=== PATIENT | male | born 1960 | race African-American/Black ===

== ENCOUNTER 2023-07-20 15:24 | Outpatient (AMB) | payer BC, SELFPAY ==
--- NOTE | 2023-07-20 16:04 | HO.NEPHOV ---
HPI HPI Comments History of Present Illness Details I had the pleasure of seeing Florian in follow-up of his chronic kidney disease, hypertension on a backdrop of microscopic hematuria and proteinuria. He has gained some weight. His blood sugar is better. His blood pressure has been at goal. He does not take any nonsteroidal anti-inflammatories. He denies nausea, vomiting, diarrhea, chest pain, shortness of breath, paroxysmal nocturnal dyspnea, orthopnea or pedal edema. He does not have any orthostatic symptoms. He claims to be compliant with his medications. All other systems have been reviewed and were negative. [facility] Medical History (Updated 08/07/23 @ 20:23 by John Loredo MD) Hypertension Chronic kidney disease, stage 3a Proteinuria Hematuria Family History (Updated 07/20/23 @ 16:11 by Kassandra Stewart MA) Sister Hypertension Social History (Updated 07/20/23 @ 16:10 by Kassandra Stewart MA) Alcohol intake: current Patient Tobacco Use Status: Former Tobacco user Vital Signs 07/20/23 16:06 Height 5 ft 7 in Weight 222 lb BMI 34.8 BP 118/60 Blood Pressure Location Lt brachial Position Sitting Pulse 87 Pulse Source Pulse Oximeter Pulse Oximetry (%) 97 Oxygen Delivery Method Room Air Physical Exam Vital Signs: Last Vital Signs Pulse 87 07/20/23 16:06 BP 118/60 07/20/23 16:06 Pulse Ox 97 07/20/23 16:06 Oxygen Delivery Method Room Air 07/20/23 16:06 BMI result Body Mass Index 34.8 Const General: comfortable and no acute distress Orientation/consciousness: patient oriented x3 HEENT Head: Yes normocephalic Mouth: Normal oral and palatal mucosa present Eyes EOM: EOMs intact bilaterally Neck Neck: Yes supple Resp Auscultation: clear to auscultation bilaterally Cardio Jugular venous distension: no JVD Rate: regular rate GI Palpation (GI): Soft to palpation Auscultation: normal bowel sounds General: Yes no CVA tenderness Back/Spine/Pelvis Back: no CVA tenderness Skin General skin exam: no rashes or lesions noted Neuro General: patient oriented x3 and moves all extremities Extrem General: Yes no pedal edema Assessment & Plan Assessment & Plan (1) Hypertension: Code(s): I10 - Essential (primary) hypertension Qualifiers: Hypertension type: primary hypertension Qualified Code(s): I10 - Essential (primary) hypertension (2) Chronic kidney disease, stage 3a: Code(s): N18.31 - Chronic kidney disease, stage 3a Home Du has CKD stage 3. He likely has IgA nephropathy. His serum creatinine in 2022 was 1.88 & is stable. He has history of microscopic hematuria. His proteinuria now is undetectable. His blood pressure has been at goal. He clearly needs to lose weight. I asked him to keep his blood sugar & blood pressure at goal. He is on MYLA inhibitor. He is already taking fish oil. He had imaging studies and cystoscopy by Urology. He avoids nonsteroidal anti-inflammatories and maintain good hydration. I did not make any medication changes today. He will be a candidate for [employer] or [employer] at the next office visit. I answered all his and his 's questions. Follow-up lab work ordered and follow-up appointment given Orders: Orders Electrolytes 07/27/23 I10 - Essential (primary) hypertension, N18.31 - Chronic kidney disease, stage 3a Calcium 07/27/23 I10 - Essential (primary) hypertension, N18.31 - Chronic kidney disease, stage 3a Creatinine 07/27/23 I10 - Essential (primary) hypertension, N18.31 - Chronic kidney disease, stage 3a Protein Creatinine Ratio, Ur 07/27/23 I10 - Essential (primary) hypertension, N18.31 - Chronic kidney disease, stage 3a Hemoglobin A1c 07/27/23 I10 - Essential (primary) hypertension, N18.31 - Chronic kidney disease, stage 3a Blood Urea Nitrogen 07/27/23 I10 - Essential (primary) hypertension, N18.31 - Chronic kidney disease, stage 3a Coding Level of Care Code Est Pt Level 4 (10966) Diagnoses Primary hypertension I10 Hypertension type: primary hypertension Chronic kidney disease, stage 3a N18.31 Results Reviewed Nephrology Results: Sodium 141 mmol/L (135-145) 07/27/23 Potassium 3.9 mmol/L (3.3-5.1) 07/27/23 Chloride 106 mmol/L (96-108) 07/27/23 Carbon Dioxide 26 mmol/L (22-29) 07/27/23 BUN 26 mg/dL (9-16) H 07/27/23 Creatinine 1.56 mg/dL (0.5-1.4) H 07/27/23 Calcium 9.6 mg/dL (8.4-10.2) 07/27/23 Urine Creatinine 168.63 mg/dL 07/27/23 Protein/Creatinin Ratio 0.10 (<0.2) 07/27/23
[2023-07-20 16:06] VITALS: BP 118/60; PULSE 87; O2SAT 97; BMI 34.8
== END 2023-07-20 16:46 | disposition home or self-care (01) ==
PROVIDERS: PCP Physician Assistant; Visit Provider Internal Medicine Nephrology
DX: I10 Essential (primary) hypertension (principal); N18.31 Chronic kidney disease, stage 3a
CPT/HCPCS: 99214

== ENCOUNTER → 2023-07-20 15:24 | Outpatient (BNVA) | payer BC, SELFPAY | PROVIDERS: PCP Physician Assistant; Visit Provider Internal Medicine Nephrology ==

== ENCOUNTER 2023-07-27 08:40 | Outpatient (REF) | payer BC, SELFPAY ==
[2023-07-27 13:01] LABS: Anion Gap 13 (12-20); Blood Urea Nitrogen 26 mg/dL (9-16); Calcium 9.6 mg/dL (8.4-10.2); Carbon Dioxide 26 mmol/L (22-29); Chloride 106 mmol/L (96-108); Estimated Glomerular Filt Rate 45; Potassium 3.9 mmol/L (3.3-5.1); Sodium 141 mmol/L (135-145)
[2023-07-27 13:03] LABS: Creatinine Urine 168.63 mg/dL; Total Protein Urine Random 17 mg/dL (<12)
[2023-07-27 13:04] LABS: Estimated Average Glucose 143 mg/dL; Hemoglobin A1c % 6.6 % (<6.0)
== END 2023-07-27 08:41 | disposition home or self-care (01) ==
LOC: HO.HKASLDS 08:40
PROVIDERS: Visit Provider Internal Medicine Nephrology
DX: I12.9 Hypertensive chronic kidney disease with stage 1 through stage 4 chronic kidney disease, or unspecified chronic kidney disease (principal); N18.31 Chronic kidney disease, stage 3a
CPT/HCPCS: 36415; 80051; 82310; 82565; 82570; 83036; 84156; 84520

== ENCOUNTER 2023-10-21 14:57 | Outpatient (AMB) | payer BC, SELFPAY ==
--- NOTE | 2023-10-21 15:03 | HO.NEPHOV_ITS ---
Vital Signs 10/21/23 15:05 Height 5 ft 7 in Weight 221 lb 6 oz BMI 34.7 BP 112/62 Blood Pressure Location Rt brachial Position Sitting Intake Visit Reasons: 3 mon follow up/ Conf Optical Effects Layout Person Required: No Accompanied by: Self / Same As Patient Allergies Peanut Butter Allergy (Verified 10/21/23 15:07) Unknown HPI Comments Details: I had the pleasure of seeing Florian in follow-up of his chronic kidney disease, hypertension on a backdrop of microscopic hematuria and proteinuria. He has gained some weight. His blood sugar is better. His blood pressure has been at goal. He does not take any nonsteroidal anti-inflammatories. He denies nausea, vomiting, diarrhea, chest pain, shortness of breath, paroxysmal nocturnal dyspnea, orthopnea or pedal edema. He does not have any orthostatic symptoms. He claims to be compliant with his medications. All other systems have been reviewed and were negative. [facility] Medical History (Updated 08/07/23 @ 20:23 by John Loredo MD) Hypertension Chronic kidney disease, stage 3a Proteinuria Hematuria Family History (Updated 07/20/23 @ 16:11 by Kassandra Stewart MA) Sister Hypertension Social History (Updated 07/20/23 @ 16:10 by Kassandra Stewart MA) Alcohol intake: current Patient Tobacco Use Status: Former Tobacco user Physical Exam Const General: comfortable and no acute distress Orientation/consciousness: patient oriented x3 HEENT Head: Yes normocephalic Mouth: Normal oral and palatal mucosa present Eyes EOM: EOMs intact bilaterally Neck Neck: Yes supple Resp Auscultation: clear to auscultation bilaterally Cardio Jugular venous distension: no JVD Rate: regular rate GI Palpation (GI): Soft to palpation Auscultation: normal bowel sounds General: Yes no CVA tenderness Back/Spine/Pelvis Back: no CVA tenderness Skin General skin exam: no rashes or lesions noted Neuro General: patient oriented x3 and moves all extremities Extrem General: Yes no pedal edema Results Reviewed Nephrology Results: Sodium 141 mmol/L (135-145) 07/27/23 Potassium 3.9 mmol/L (3.3-5.1) 07/27/23 Chloride 106 mmol/L (96-108) 07/27/23 Carbon Dioxide 26 mmol/L (22-29) 07/27/23 BUN 26 mg/dL (9-16) H 07/27/23 Creatinine 1.56 mg/dL (0.5-1.4) H 07/27/23 Calcium 9.6 mg/dL (8.4-10.2) 07/27/23 Urine Creatinine 168.63 mg/dL 07/27/23 Protein/Creatinin Ratio 0.10 (<0.2) 07/27/23 Assessment & Plan Assessment & Plan (1) Chronic kidney disease, stage 3a: Code(s): N18.31 - Chronic kidney disease, stage 3a Category: Medical (2) Hypertension: Code(s): I10 - Essential (primary) hypertension Category: Medical Qualifiers: Hypertension type: primary hypertension Qualified Code(s): I10 - Essential (primary) hypertension Plan Florian has CKD stage 3. He likely has IgA nephropathy. His serum creatinine is stable. He has history of microscopic hematuria. His proteinuria now is undetectable. His blood pressure has been at goal. He clearly needs to lose weight. I asked him to keep his blood sugar & blood pressure at goal. He is on MYLA inhibitor. He is already taking fish oil. He had imaging studies and cystoscopy by Urology. He avoids nonsteroidal anti-inflammatories and maintain good hydration. I wanted to discontinue his Pioglitazone and started him on Jardiance 10 mg saima but his insurance will not cover Jardiance/Farxiga. I ans wered all his questions. Follow-up lab work ordered and follow-up appointment given Orders: Orders Blood Urea Nitrogen Today I10 - Essential (primary) hypertension, N18.31 - Chronic kidney disease, stage 3a Creatinine Today I10 - Essential (primary) hypertension, N18.31 - Chronic kidney disease, stage 3a Electrolytes Today I10 - Essential (primary) hypertension, N18.31 - Chronic kidney disease, stage 3a Coding Level of Care Code Est Pt Level 4 (01820) Diagnoses Chronic kidney disease, stage 3a N18.31 Primary hypertension I10 Hypertension type: primary hypertension
[2023-10-21 15:05] VITALS: BP 112/62; BMI 34.7
== END 2023-10-21 15:22 | disposition home or self-care (01) ==
PROVIDERS: PCP Physician Assistant; Visit Provider Internal Medicine Nephrology
DX: N18.31 Chronic kidney disease, stage 3a (principal); I10 Essential (primary) hypertension
CPT/HCPCS: 99214

== ENCOUNTER → 2023-10-21 14:57 | Outpatient (BNVA) | payer BC, SELFPAY | PROVIDERS: PCP Physician Assistant; Visit Provider Internal Medicine Nephrology ==

== ENCOUNTER 2024-02-17 15:26 | Outpatient (AMB) | payer BC, SELFPAY ==
--- NOTE | 2024-02-17 15:30 | HO.NEPHOV_ITS ---
Vital Signs 02/17/24 15:31 Height 5 ft 7 in Weight 220 lb 8 oz BMI 34.5 BP 132/80 Blood Pressure Location Lt brachial Position Sitting Pulse 108 H Pulse Source Pulse Oximeter Pulse Oximetry (%) 96 Oxygen Delivery Method Room Air Intake Visit Reasons: 4 mon follow up/ Conf Campus Coordinator Required: No Accompanied by: Self / Same As Patient Allergies Peanut Butter Allergy (Verified 02/17/24 15:32) Unknown HPI Comments Details: I had the pleasure of seeing Florian in follow-up of his chronic kidney disease, hypertension on a backdrop of microscopic hematuria and proteinuria. His blood sugar is better. He has been started on Ozempic. His blood pressure has been at goal. He does not take any nonsteroidal anti-inflammatories. He denies nausea, vomiting, diarrhea, chest pain, shortness of breath, paroxysmal nocturnal dyspnea, orthopnea or pedal edema. He does not have any orthostatic symptoms. He claims to be compliant with his medications. All other systems have been reviewed and were negative. [facility] Medical History (Updated 08/07/23 @ 20:23 by John Loredo MD) Hypertension Chronic kidney disease, stage 3a Proteinuria Hematuria Family History Sister Hypertension Social History Alcohol intake: current Patient Tobacco Use Status: Former Tobacco user Review of Systems Const All systems reviewed & are unremarkable except as noted in HPI and below Physical Exam Vital Signs: Last Vital Signs Pulse 108 H 02/17/24 15:31 BP 132/80 02/17/24 15:31 Pulse Ox 96 02/17/24 15:31 Oxygen Delivery Method Room Air 02/17/24 15:31 BMI result Body Mass Index 34.5 Const General: comfortable and no acute distress Orientation/consciousness: patient oriented x3 HEENT Head: Yes normocephalic Mouth: Normal oral and palatal mucosa present Eyes EOM: EOMs intact bilaterally Neck Neck: Yes supple Resp Auscultation: clear to auscultation bilaterally Cardio Jugular venous distension: no JVD Rate: regular rate GI Palpation (GI): Soft to palpation Auscultation: normal bowel sounds General: Yes no CVA tenderness Back/Spine/Pelvis Back: no CVA tenderness Skin General skin exam: no rashes or lesions noted Neuro General: patient oriented x3 and moves all extremities Extrem General: Yes no pedal edema Results Reviewed Nephrology Results: Sodium 141 mmol/L (135-145) 07/27/23 Potassium 3.9 mmol/L (3.3-5.1) 07/27/23 Chloride 106 mmol/L (96-108) 07/27/23 Carbon Dioxide 26 mmol/L (22-29) 07/27/23 BUN 26 mg/dL (9-16) H 07/27/23 Creatinine 1.56 mg/dL (0.5-1.4) H 07/27/23 Calcium 9.6 mg/dL (8.4-10.2) 07/27/23 Urine Creatinine 168.63 mg/dL 07/27/23 Protein/Creatinin Ratio 0.10 (<0.2) 07/27/23 Assessment & Plan Assessment & Plan (1) Chronic kidney disease, stage 3a: Code(s): N18.31 - Chronic kidney disease, stage 3a Category: Medical (2) Hypertension: Code(s): I10 - Essential (primary) hypertension Category: Medical Qualifiers: Hypertension type: primary hypertension Qualified Code(s): I10 - Essential (primary) hypertension Plan Florian has CKD stage 3. He likely has IgA nephropathy. His serum creatinine had been stable. He has history of microscopic hematuria. His proteinuria now is undetectable. His blood pressure has been at goal. He clearly needs to lose weight. I asked him to keep his blood sugar & blood pressure at goal. He is on MYLA inhibitor. He is already taking fish oil. He had imaging studies and cystoscopy by Urology. He avoids nonsteroidal anti-inflammatories and maintain good hydration. I wanted to start him on Jardiance 10 mg saima but his insurance will not cover Jardiance/Farxiga. I answered all his questions. Follow-up lab work ordered and follow-up appointment given Orders: Orders Blood Urea Nitrogen 3 Months I10 - Essential (primary) hypertension, N18.31 - Chronic kidney disease, stage 3a Electrolytes 3 Months I10 - Essential (primary) hypertension, N18.31 - Chronic kidney disease, stage 3a Creatinine 3 Months I10 - Essential (primary) hypertension, N18.31 - Chronic kidney disease, stage 3a Coding Level of Care Code Est Pt Level 4 (15190) Diagnoses Chronic kidney disease, stage 3a N18.31 Primary hypertension I10 Hypertension type: primary hypertension
[2024-02-17 15:31] VITALS: BP 132/80; PULSE 108; O2SAT 96; BMI 34.5
== END 2024-02-17 15:45 | disposition home or self-care (01) ==
PROVIDERS: PCP Physician Assistant; Visit Provider Internal Medicine Nephrology
DX: N18.31 Chronic kidney disease, stage 3a (principal); I10 Essential (primary) hypertension
CPT/HCPCS: 99214

== ENCOUNTER → 2024-02-17 15:26 | Outpatient (BNVA) | payer BC, SELFPAY | PROVIDERS: PCP Physician Assistant; Visit Provider Internal Medicine Nephrology ==

== ENCOUNTER 2024-06-15 16:25 | Outpatient (REF) | payer BC, SELFPAY ==
[2024-06-15 18:38] LABS: Anion Gap 14 (12-20); Blood Urea Nitrogen 23 mg/dL (9-16); Carbon Dioxide 23 mmol/L (22-29); Chloride 106 mmol/L (96-108); Estimated Glomerular Filt Rate 43; Sodium 139 mmol/L (135-145)
== END 2024-06-15 16:26 | disposition home or self-care (01) ==
LOC: HO.HKASLDS 16:25
PROVIDERS: Visit Provider Internal Medicine Nephrology
DX: N18.31 Chronic kidney disease, stage 3a (principal); I10 Essential (primary) hypertension
CPT/HCPCS: 36415; 80051; 82565; 84520

== ENCOUNTER 2024-06-20 15:17 | Outpatient (AMB) | payer OTHER, SELFPAY ==
--- NOTE | 2024-06-20 15:18 | HO.NEPHOV_ITS ---
Vital Signs 06/20/24 15:25 Height 5 ft 7 in Weight 210 lb 2 oz BMI 32.9 BP 140/70 H Blood Pressure Location Lt brachial Position Sitting Pulse 73 Pulse Source Pulse Oximeter Pulse Oximetry (%) 99 Oxygen Delivery Method Room Air Intake Visit Reasons: 4 mon follow up-[facility] [place] Hearing Aid Technician Required: No Accompanied by: Self / Same As Patient Allergies Peanut Butter Allergy (Verified 06/20/24 15:25) Unknown HPI Comments Details: Florian was seen in follow-up of his chronic kidney disease, hypertension on a backdrop of microscopic hematuria and proteinuria. His blood sugar is better. He has been started on Ozempic. His blood pressure has been at goal. He does not take any nonsteroidal anti-inflammatories. He denies nausea, vomiting, diarrhea, chest pain, shortness of breath, paroxysmal nocturnal dyspnea, orthopnea or pedal edema. He does not have any orthostatic symptoms. He claims to be compliant with his medications. All other systems have been reviewed and were negative. [facility] Medical History (Updated 08/07/23 @ 20:23 by John Loredo MD) Hypertension Chronic kidney disease, stage 3a Proteinuria Hematuria Family History Sister Hypertension Social History Alcohol intake: current Patient Tobacco Use Status: Former Tobacco user Review of Systems Const All systems reviewed & are unremarkable except as noted in HPI and below Physical Exam Vital Signs: Last Vital Signs Pulse 73 06/20/24 15:25 BP 140/70 H 06/20/24 15:25 Pulse Ox 99 06/20/24 15:25 Oxygen Delivery Method Room Air 06/20/24 15:25 BMI result Body Mass Index 32.9 Const General: comfortable and no acute distress Orientation/consciousness: patient oriented x3 HEENT Head: Yes normocephalic Mouth: Normal oral and palatal mucosa present Eyes EOM: EOMs intact bilaterally Neck Neck: Yes supple Resp Auscultation: clear to auscultation bilaterally Cardio Jugular venous distension: no JVD Rate: regular rate GI Palpation (GI): Soft to palpation Auscultation: normal bowel sounds General: Yes no CVA tenderness Back/Spine/Pelvis Back: no CVA tenderness Skin General skin exam: no rashes or lesions noted Neuro General: patient oriented x3 and moves all extremities Extrem General: Yes no pedal edema Results Reviewed Nephrology Results: Sodium 139 mmol/L (135-145) 06/15/24 Potassium 4.0 mmol/L (3.3-5.1) 06/15/24 Chloride 106 mmol/L (96-108) 06/15/24 Carbon Dioxide 23 mmol/L (22-29) 06/15/24 BUN 23 mg/dL (9-16) H 06/15/24 Creatinine 1.61 mg/dL (0.5-1.4) H 06/15/24 Calcium 9.6 mg/dL (8.4-10.2) 07/27/23 Urine Creatinine 168.63 mg/dL 07/27/23 Protein/Creatinin Ratio 0.10 (<0.2) 07/27/23 Assessment & Plan Assessment & Plan (1) Chronic kidney disease, stage 3a: Code(s): N18.31 - Chronic kidney disease, stage 3a Category: Medical (2) Hypertension: Code(s): I10 - Essential (primary) hypertension Category: Medical Qualifiers: Hypertension type: primary hypertension Qualified Code(s): I10 - Essential (primary) hypertension Plan Florian has CKD stage 3. He likely has IgA nephropathy. His serum creatinine had been stable. He has history of microscopic hematuria. His proteinuria now is undetectable. His blood pressure has been at goal. He clearly needs to lose weight. I asked him to keep his blood sugar & blood pressure at goal. He is on MYLA inhibitor. He is already taking fish oil. He had imaging studies and cystoscopy by Urology. He avoids nonsteroidal anti-inflammatories and maintain good hydration. I wanted to start him on Jardiance 10 mg saima but his insurance will not cover Jardiance/Farxiga. I answered all his questions. Follow-up lab work ordered and follow-up appointment given Orders: Orders Creatinine 4 Months I10 - Essential (primary) hypertension, N18.31 - Chronic kidney disease, stage 3a Blood Urea Nitrogen 4 Months I10 - Essential (primary) hypertension, N18.31 - Chronic kidney disease, stage 3a Protein Creatinine Ratio, Ur 4 Months I10 - Essential (primary) hypertension, N18.31 - Chronic kidney disease, stage 3a UA and rflx microscopic 4 Months I10 - Essential (primary) hypertension, N18.31 - Chronic kidney disease, stage 3a Electrolytes 4 Months I10 - Essential (primary) hypertension, N18.31 - Chronic kidney disease, stage 3a Coding Level of Care Code Est Pt Level 4 (54801) Diagnoses Chronic kidney disease, stage 3a N18.31 Primary hypertension I10 Hypertension type: primary hypertension
--- OUTSIDE RECORDS SUMMARY | 2024-06-20 15:20 | XMS_ITS | Encounter Summary ---
Author Organization [facility] Address [address] [place] [address] Care Team Providers Care Sub Acute Care Nurse Name Role Phone Hanny Thompson PA-C Primary Care Provider + [phone] Reason for Referral * Podiatry (Routine) - Pending Review Specialty Diagnoses / Procedures Referred By Jelly stockton Referred To Contact Family Practice Diagnoses Type 2 diabetes mellitus with hyperglycemia, with long-term current use of insulin ([facility]) Aroldo Latham, SouravD [address] [place] [address] Phone: tel: fax: Ana Vegas RN [phone] [place] [address] Phone: tel: fax: Referral ID Status Reason Start Date Expiration Date Visits Requested Visits Authorized [id number] Pending Review Continuity of Care 06/15/2024 06/15/2025 1 1 Comments 63-year-old Iraqi-speaking insulin dependent DM2 patient without diabetic neuropathy, completed last diabetic foot exam 2 years ago, please evaluate, thank you! Reason for Visit * Reason Comments Diabetes Mellitus Encounter Details Date Type Department Care Team ([facility] st Contact Info) Description 06/13/2024 4:20 PM EST Office Visit [facility] [address] [place] [address] Aroldo Latham, PharmD [address] [place] [address] Type 2 diabetes mellitus with hyperglycemia, with long-term current use of insulin ([facility]) (Primary Dx); Essential hypertension; Class 1 obesity due to excess calories with serious comorbidity and body mass index (BMI) of 30.0 to 30.9 in adult; Hyperlipidemia LDL goal <70 Social History Tobacco Use Types Packs/Day Years Used Date Smoking Tobacco: Never Smokeless Tobacco: Never Tobacco Cessation:Counseling Given: Not Answered Alcohol Use Standard Drinks/Week Comments No 0 (1 standard drink = 0.6 oz pur e alcohol) sometimes Social Connections Answer Date Recorded Connectedness 0 07/02/2022 Financial Resource Strain Answer Date R ecorded Financial Resource Strain 1 2023 Stress Answer Date Recorded Stress 1 11/30/2023 Physical Activity Answer Date Recorded Physical Activity 0 01/07/2019 Food Insecurity Answer Date Recorded Food 1 11/30/2023 Transportation Needs Answer Date Record ed Transportation 1 11/30/2023 Housing Stability Answer Date Recorded Housing 1 11/30/2023 Safety and Environment Answer Date Armand rded Safety 0 07/02/2022 Utilities Answer Date Recorded Utilities 1 11/30/2023 Employment Answer Date Recorded Stress 0 07/02/2022 Sex and Gender Information Value Date Recorded Sex Assigned at Male 03/01/2017 1:07 PM PDT Legal Sex Male 11:36 AM PDT Gender Identity Male 03/01/2017 1:07 PM PDT Sexual Orientation Straight 03/01/2017 1: 07 PM PDT documented as of this encounter Last Filed Vital Signs Vital Sign Reading Time Taken Comments Blood Pressure 130/76 06/13/2024 4:40 PM EST Pulse 86 06/13/2024 4:29 PM EST Temperature - - Respiratory Rate 16 06/13/2024 4:29 PM EST Oxygen Saturation 97% 06/13/2024 4:29 PM EST Inhaled Oxygen Concentration - - Weight 95.3 kg (210 lb) 06/13/2024 4:29 PM EST Height 177 cm (5' 9.69 ) 06/13/2024 4:29 PM EST Body Mass Index 30.4 06/13/2024 4:29 PM EST documented in this encounter Progress Notes * Aroldo Latham, SouravD - 06/13/2024 4:37 PM EST Florian Graham is a 63 year old, Iraqi-speaking male who presents today for a follow-up visit in [facility] with Sourav GlasgowD. Referred by Hanny Thompson PA-C. No in flight refueling craftsman needed for today's visit as patient speaks Iraqi. Accompanied by: None Subjective: Patient reports: Continues to use [facility], denies experiencing any issues. Per glucometer review, BG has improved, although continues to be slightly uncontrolled. Discontinued Lantus Solostar on 06/03/24 due to restarting Trulicity 1.5 mg (pt thought he could notuse both simultaneously), see below. Restarted Trulicity 1.5 mg once weekly every Wednesday starting on 06/03/24 due to recently changing insurances and copay now $36 (instead of $150), denies experiencing any nausea, vomiting, abdominal pain, constipation or diarrhea. Denies experiencing bilateral peripheral extremity numbness or tingling. Polydipsia/polyphagia/polyuria? no Changes in diet: Reduced rice and bread intake to once weekly. Denies drinking soda. Previously seen by [facility] channel account manager, denies interest in follow-up Changes in physical activity: currently using stationary bicycle 2 times per week for 15-20 minutes. New concerns: None Tobacco Use: Former Smoker: Quit 15 years ago Tobacco Intervention:provided tobacco cessation counseling Alcohol Use: Current drinker: 2 drinks per week (vodka on weekends) Additional OTC medications or supplements: None Specialists managing DM/HTN: Nephrology (Location: [facility], Dr Lopez, last seen 02/17/24, follow-up unclear): see problem list Diabetes Current Diabetes RX: Lantus Solostar - inject 10 units daily at bedtime Trulicity 1.5 mg once weekly every Wednesday HTN Current HTN RX: Amlodipine-valsartan 10/160 mg daily Previous anti-hypertensives and reason for discontinuation: Chlorthalidone (D/C 02/29/24) due to pt non-adherent, BP stable, reports nocturia, will stop Amlodipine and lisinopril (D/C 02/01/24) to reduce pill burden, transitioned to amlodipine-valsartan Lisinopril-HCTZ (D/C 09/20/15) due to possible sexual dysfunction with HCTZ, transitioned to lisinopril Metoprolol (D/C 02/20/14) due to association with erectile dysfunction Patient reports checking blood pressure at home Daily BP readings: 117-120s/70-80s mmHg, with rare SBP 130s mmHg Objective: BGM Metrics: Previous 1 week SMBG (BGM: [facility]) 7-day av mg/dL 14-day av mg/dL 30-day av mg/dL 06/13/24 7 AM: 150 mg/dL 06/12/24 11 AM: 140 mg/dL; 9 PM: 146 mg/dL 06/11/24 AM: 148 mg/dL; 8 PM: 189 mg/dL 06/10/24 10 AM: 215 mg/dL; 7 PM: 189 mg/dL 06/09/24 7 AM: 196 mg/dL; 225 mg/dL 06/08/24 7 AM: 192 mg/dL 06/07/24 7 AM: 169 mg/dL; 7 PM: 165 mg/dL 06/06/24 9 PM: 212 mg/dL Denies any hypoglycemic events Allergies reviewed: Allergies Allergen Reactions Peanuts Other (See Comments) cough BP 138/88 (Right Arm, Sitting, Regular Adult) Pulse 86 Resp 16 Ht 5' 9.69 (1.77 m) Wt 210 lb (95.3 kg) SpO2 97% BMI 30.40 kg/m?? Smoking Status Never BSA 2.16 m?? Estimated Creatinine Clearance: 43.4 mL/min (A) (by C-G formula based on SCr of 1.98 mg/dL (H)). Last 3 BP Readings: Date: BP: 06/13/2024 138/88 05/02/2024 130/80 04/29/2024 133/81 Wt Readings from Last 3 Encounters: 06/13/24 210 lb (95.3 kg) 05/02/24 217 lb (98.4 kg) 04/29/24 210 lb (95.3 kg) Lab Results Component Value Date HGBA1C 11.7 (H) 06/03/2024 HGBA1C 7.1 (H) 11/30/2023 HGBA1C 6.9 (H) 08/17/2023 Lab Results Component Value Date GLUCOSE 99 06/13/2024 EAG 163 01/31/2020 Lab Results Component Value Date MICRALBCREAT 17.1 01/31/2020 URALBCREAT 21 07/14/2022 No results found for: VITB12 , FOLATE Lab Results Component Value Date NA 138 11/30/2023 K 3.9 11/30/2023 BUN 34 (H) 11/30/2023 BUNCREAT 17 11/30/2023 CREATININE 1.98 (H) 11/30/2023 EGFR 37 (L) 11/30/2023 Lab Results Component Value Date TSH 1.04 11/30/2023 Lab Results Component Value Date TRIGLYC 211 (H) 11/30/2023 CHOL 164 11/30/2023 HDL 62 11/30/2023 LDL 71 11/30/2023 CHOLHDL 2.6 11/30/2023 NONHDL 102 11/30/2023 The 10-year ASCVD risk score (Lambert PALACIO, et al., 2019) is: 27.9% Assessment: Diabetes: Poorly controlled A1c, Improved and Poorly controlled SMBG HTN: well-controlled ASCVD: Age 40-75 yo, DM, high ASCVD = high intensity statin recommended to reduce LDL by at least 50% (goal LDL <70 mg/dL) Plan: E11.65,Z79.4 Type 2 diabetes mellitus with hyperglycemia, with long-term current use of insulin ([facility]) (primary encounter diagnosis) Plan : GLUCOSE, BLOOD BY GLUCOSE MONITORING DEVICE (CLIA WAIVED)POCT TRULICITY 3 MG/0.5 ML SUBCUTANEOUS PEN INJECTOR - Inject 3 mg into the skin once a week Every Wednesday stop 1.5 mg LANTUS SOLOSTAR U-100 INSULIN 100 UNIT/ML (3 ML) SUBCUTANEOUS PEN - Inject 10 Units into the skin nightly at bedtime decreased dosing REFERRAL TO FOOT CARE PHARMACOTHERAPY for diabetes Counseled patient to continue use of [facility]. Patient is interested in assessing if CGM is covered and possibly with lower copay thanks to recent change in insurance. Will issue prescription for Freestyle Niki 3 Plus sensors and complete a PA if needed. Will make the following medication adjustments: Decreased Lantus Solostar - inject 10 units daily at bedtime (due to misunderstanding, pt had stopped insulin use as he had started Trulicity) New dapagliflozin 10 mg daily every morning (CKD) Jardiance seems to have very expensive copay Increased Trulicity 3 mg once weekly every Wednesday (for additional BG control/weight loss) I10 Essential hypertension BP initially elevated, although upon re-check improved, BP at home is well- controlled, will continue current medications: Amlodipine-valsartan 10/160 mg daily E66.811,E66.09,Z68.30 Class 1 obesity due to excess calories with serious comorbidity and body massindex (BMI) of 30.0 to 30.9 in adult Plan : TRULICITY 3 MG/0.5 ML SUBCUTANEOUS PEN INJECTOR - Inject 3 mg into the skin once a week Every Wednesday stop 1.5 mg Lifestyle measures:BMI follow up plan: The patient was counseled regarding nutrition and physical activity weight loss medication prescribed. Counseled patient on importance of diet and lifestyle (weight loss, low-sodium (VARNER) diet, decrease carbohydrates such as rice, bread, pasta and corn meal, increase non-starchy vegetables, no potatoes or corn, increase protein, and increase physical activity withat least 150 minutes of moderate physical activity per week). Increased Trulicity 3 mg once weekly every Wednesday (for additional BG control/weight loss) E78.5 Hyperlipidemia LDL goal <70 ASCVD: Per 2023 ADA guidelines for lipid management, continue high-intensity statin: atorvastatin 40 mg daily at bedtime Referral: Foot Exam: Issued internal referral to foot care with Ana DALLAS Follow-Up: 07/28/24 @4 PM Patient agrees with plan of care and verbalizes understanding. Questions were answered. Education: Medication Regimen: (indication, dosage, administration, storage, ADR, missing dose) BG testing and target/Alternate Site Testing Focus on consuming carbohydrates from high-fiber sources like whole grains, legumes, and fruits in controlled portions to help manage blood sugar levels, and aim to fill half your plate with non-starchy vegetables like leafy greens, broccoli, or peppers for added nutrients and fiber. Avoid sugary beverages like soda and limit sweets to special occasions, choosing healthier alternatives such as water, unsweetened tea, or low-calorie drinks to minimize blood sugar spikes Incorporate at least 150 minutes of moderate physical activity per week, such as brisk walking or cycling, to improve insulin sensitivity, enhance glucose control, and support overall cardiovascular health. Sign / Symptoms of Hyperglycemia / Hypoglycemia Hypoglycemia Treatment (Rule 15) Fpc Complications Uncontrolled Diabetes Aroldo Latham PharmD documented in this encounter Miscellaneous Notes * Patient Instructions - Aroldo Latham PharmD - 06/13/2024 4:49 PM EST [facility] [address] [address] Moises Latham PharmD, [facility] Clinical Pharmacist Press 1 for Iraqi Enter extension [phone] They will not ask you what extension you want to reach, so just enter extension. You may leave me a message if I do not answer. Please state your name, date of and call back number If you are not able to keep your appointment please call 24-48 hours before your appointment to cancel or reschedule. documented in this encounter Plan of Treatment Upcoming Encounters Date Type Department Care Team (Late st Contact Info) Description 07/28/2024 4:00 PM EDT Office Visit [address] [id number] Aroldo Latham PharmD [address] [place] [id number] Scheduled Referrals Name Type Priority Associated Diagnoses Orde r Schedule REFERRAL TO FOOT CARE Referral Routine Type 2 diabetes mellitus with hyperglycemia, with long-term current use of insulin ([facility]) Ordered: 06/15/2024 documented as of this encounter Goals Goal Patient Goal Type Associated Problems Recent Progress Patient-Stated? Author Blood Pressure < 130/80 Blood Pressure Essential hypertension 130/76(2024 4:40 PM EST) No Chanell Pizarro, PharmD documented as of this encounter Procedures Procedure Name Priority Date/Time Associated Diagnosis Comments GLUCOSE, BLOOD BY GLUCOSE MONITORING DEVICE (CLIA WAIVED)POCT Routine 06/13/2024 4:34 PM EST Type 2 diabetes mellitus with hyperglycemia, with long-term current use of insulin ([facility]) documented in this encounter Results * GLUCOSE, BLOOD BY GLUCOSE MONITORING DEVICE (CLIA WAIVED)POCT (06/13/2024 4:34 PM EST) GLUCOSE 99 70 - 100 mg/dL [facility] POCT Capillary Blood Blood / Unknown 4:34 PM EST us Aroldo Latham PharmD LAB - BLOOD DRAW Final Re sult [facility] POCT documented in this encounter Visit Diagnoses Diagnosis Type 2 diabetes mellitus with hyperglycemia, with long-term current use of insulin ([facility])- Primary Essential hypertension Class 1 obesity due to excess calories with serious comorbidity and body mass index (BMI) of 30.0 to 30.9 in adult Hyperlipidemia LDL goal <70 Other and unspecified hyperlipidemia documented in this encounter Additional Health Concerns Assessment Noted Time PHQ-9 Depression Total Score: 0 11/30/19 24 4:23 PM PDT documented as of this encounter Care Teams Sub Acute Care Nurse Relationship Specialty Start Date End Date Hanny Thompson PA-C [address] [place] [phone] PCP - General Internal Medicine 05/16/13 documented as of this encounter
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
--- OUTSIDE RECORDS SUMMARY | 2024-06-20 15:20 | XMS_ITS | Clinical Summary ---
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 Shavonne Sierra MA; ?? Cc: Hanny Medellin; ?? Sent: 06/14/2020 14:26:29 EST Subject: Biopsy results ?? Actions: Please Call Patient with Results ?? One Tubular adenoma, Two small Hyerplastic Polyps Repeat colonoscopy in 7 years based on current guidelines. Please let patient know. Please set reminder. Thank you Dr Witt [facility]. 2019;[id number]([id number]. doi: 10.1053 PMID: [id number]. Results: Date Result Type Result Name 06/04/2020 8:35 Document - DOC Surgical Pathology Final Diagnosis: 1. Colon, transverse, polyp, polypectomy: - Tubular adenoma. ?? 2. Colon, descending, polyps, polypectomy (x2): - Hyperplastic polyp(s). us Provider Ochin PROCEDURES Final Result * HIV-1 & HIV-2 ANTIBODIES (01/31/2020 4:05 PM EDT) [facility] Signature HIV 1 AND 2 ANTIBODY SCREEN NEGATIVE NEGATIVE [facility] Comment: This assay is a 4th generation assay allowing for earlier detection of HIV infection by detecting the presence of the HIV-1 p24 antigen as well as the traditional antibodies to HIV type 1 (including group O) and type 2. ??Use of a 4th generation assay is the current CDC recommendation for HIV screening. Blood specimen (specimen) Blood / Unknown 01/31/2020 4:05 PM EDT 01/31/2020 4:37 PM EDT Narrative [facility] - 01/31/2020 7:21 PM EDT [employer], [place] [address] Loss Prevention Representative - Mary Pozo MD [place] ID [id number] ORD# [id number] Hanny Thompson PA-C LAB - BLOOD DRAW Final Resul t [address] [address], from Last 3 Months or Most Recently Relevant to Health Maintenance Insurance [facility] Member Subscriber Plan / Payer (Ef fective 2020-Present) Name:Florian Graham Relation to Subscriber:Self Name:Florian Graham Payer ID:[id number] Type:Indemnity Address: [address] [place] [address] [facility] Care Teams Data Entry Representative Relationship Specialty Start Date End Date Hanny Thompson PA-C [address] [place] [address] PCP - General Internal Medicine 05/16/13
--- OUTSIDE RECORDS SUMMARY | 2024-06-20 15:20 | XMS_ITS | Clinical Summary ---
Author Organization [facility] Address [address] [place] [address] Phone Care Team Providers Care Knitter Operator Name Role Phone Hanny Thompson Primary Care Provider [phone] Allergies No known active allergies Medications Medication Sig Dispensed Refills Start Date End Date Status insulin glargine (LANTUS) 100 unit/mL injection Inject 40 Units under the skin at bedtime for 15 days. 10 mL 04/29/2024 Active Encounters Date Type Department Care Team Description 04/29/2024 4:56 PM EST - 04/29/2024 7:56 PM EST Emergency [facility] [address] [place] [address] Jemal Long MD Hyperglycemia due to diabetes mellitus (CMS/HCC) (Primary Dx) Discharge Disposition: Home or Self Care from Last 3 Months Medical History Medical History Date Comments Uncontrolled type 2 diabetes mellitus with hyperglycemia (CMS/HCC) DX:Uncontrolled type 2 di abetes mellitus with hyperglycemia ([facility]) Chronic kidney disease, stag e 3b (CMS/HCC) DX:Chronic kidney disease, s tage 3b ([facility]) Social History Tobacco Use Types Packs/Day Years Used Date Smoking Tobacco: Former Cigarettes Smokeless Tobacco: Never Alcohol Use Standard Drinks/Week Comments Yes 0 (1 standard drink = 0.6 oz pur e alcohol) Sex and Gender Information Value Date Recorded Sex Assigned at Not on file Gender Identity Not on file Sexual Orientation Not on file Job Start Date Occupation Industry Not on file Not on file Not on file Obstetrics History Last Filed Vital Signs Vital Sign Reading Time Taken Comments Blood Pressure 141/79 04/29/2024 4:43 PM EST Pulse 102 04/29/2024 4:43 PM EST Temperature 36.7 ??C (98.1 ??F) 04/29/2024 4:43 PM ES T Respiratory Rate 18 04/29/2024 4:43 PM EST Oxygen Saturation 98% 04/29/2024 5:14 PM EST Inhaled Oxygen Concentration - - Weight 95.3 kg (210 lb) 04/29/2024 4:43 PM EST Height 167.6 cm (5' 6 ) 04/29/2024 4:43 PM EST Body Mass Index 33.89 04/29/2024 4:43 PM EST Plan of Treatment Health Maintenance Due Date Last Done Comments Diabetes: Annual Foot Exam 11/14/1969 Diabetes: Annual Retina Eye Exam 11/14/1969 DTaP,Tdap,and Td Vaccines (1 - Tdap) 11/14/1978 RSV Immunization Patients 60+ Years Old (1 - Risk 60-74 years 1-dose series) 2019 Colorectal Cancer Screening: Colonoscopy 04/19/2022 Social Influencers of Health Screening 04/19/2022 Zoster Vaccines (2 of 2) 09/08/2022 07/14/2022 COVID-19 Vaccine ( season) 2024 01/02/2022, 04/28/2021, 09/16/2020, Additional history exists Diabetes: Annual Urine Albumin-Creatinine Ratio (uACR) 04/29/2024 07/14/2022, 01/31/2020, 10/21/2018, Additional history exists Diabetes: Blood Sugar Control Test (HGBA1C) 06/01/2024 11/30/2023 Depression Screening 11/29/2024 11/30/2023 Diabetes: Annual GFR (Glomerular Filtration Rate) 04/29/2025 04/29/2024, 11/30/2023 Hypertension/CHF/CAD Annual BMP Blood Test 04/29/2025 04/29/2024, 11/30/2023 Cholesterol Screening (Lipid Panel) 11/29/2028 11/30/2023, 11/30/2023, 12/10/2021, Additional history exists HIV Screening Completed 01/31/2020 Pneumococcal Vaccine: Pediatrics (0 to 5 Years) and At-Risk Patients (6 to 64 Years) Completed 03/17/2022 Hepatitis C Screening Completed 11/30/2023, 020 Influenza Vaccine Completed 02/01/2024, , 03/02/2022, Additional history exists HIB Vaccines Aged Out No longer eligi ble based on patient's age to complete this topic HPV Vaccines Aged Out No longer eligi ble based on patient's age to complete this topic Hepatitis A Vaccines Aged Out No long er eligible based on patient's age to complete this topic Hepatitis B Vaccines Aged Out No long er eligible based on patient's age to complete this topic IPV Vaccines Aged Out No longer eligi ble based on patient's age to complete this topic MMR Vaccines Aged Out No longer eligi ble based on patient's age to complete this topic Meningococcal ACWY Vaccine Aged Out N o longer eligible based on patient's age to complete this topic RSV Immunization Patients Under 20 months Aged Out No longer eligible based on patient's age to complete this topic Varicella Vaccines Aged Out No longer eligible based on patient's age to complete this topic Procedures Procedure Name Priority Date/Time Associated Diagnosis Comments POCT GLUCOSE BLOOD Routine 04/29/2024 6: 52 PM EST POCT GLUCOSE BLOOD Routine 04/29/2024 5: 36 PM EST ECG 12-LEAD STAT 04/29/2024 5:35 PM EST STYLES URINE CULTURE TUBE STAT 04/29/20 5:28 PM EST URINALYSIS WITH REFLEX MICROSCOPIC AND CULTURE STAT 04/29/2024 5:28 PM EST URINALYSIS WITH REFLEX MICROSCOPIC AND CULTURE STAT 04/29/2024 5:28 PM EST CBC WITH AUTO DIFFERENTIAL STAT 04/29/2024 5:13 PM EST BETA HYDROXYBUTYRATE STAT 04/29/2024 5:13 PM EST MAGNESIUM STAT 04/29/2024 5:13 PM EST CBC AND DIFFERENTIAL STAT 04/29/2024 5:13 PM EST BASIC METABOLIC PANEL STAT 04/29/2024 5:13 PM EST VENOUS BLOOD GAS STAT 04/29/2024 5:13 PM EST ECG ANNOTATED 04/29/2024 from Last 3 Months Results * (ABNORMAL) POCT Glucose, blood (04/29/2024 6:52 PM EST) Only the most recent of2 resultswithin the time period is included. [facility] Glucose POCT >600(HH) 70 - 100 mg/dL 04/29/2024 6:54 PM EST [facility] POCT Comment MD Notified 04/29/2024 6:54 PM EST [facility] Blood Capillary blood specimen / Unknown 04/29/2024 6:52 PM EST 04/29/2024 6:55 PM EST Jemal Long MD LAB POINT OF CARE TEST DOCKED DEVICE UNSOLICITED RESULTS [facility] [address] [place] [address], * ECG 12 lead (04/29/2024 5:35 PM EST) [facility] Ventricular Rate ECG 84 BPM GEMUSE Atrial Rate 84 BPM GEMUSE P-R Interval 138 ms GEMUSE QRS Duration 72 ms GEMUSE Q-T Interval 348 ms GEMUSE QTc 411 ms GEMUSE P Wave [place] 59 degrees GEMUSE R [place] -15 degrees GEMUSE T [place] -2 degrees GEMUSE ECG Interpretation Normal sinus rhythm Normal ECG When compared with ECG of 04-JUN-2014 08:44, No significant change was found Confirmed by STACEY SOLIMAN ([id number]) on 04/30/2024 12:25:18 AM GEMUSE 04/29/2024 5:35 PM EST 04/30/2024 12:25 AM EST Jemal Long MD ECG ORDERABLES GEMUSE * (ABNORMAL) Urinalysis with reflex microscopic and culture (04/29/2024 5:28 PM EST) Specific [place] Urine 1.036(H) 1.003 - 1.030 LAB URINALYSIS - AUTOMATED METHOD 04/29/2024 6:46 PM [facility] pH, Urine 6.0 5.0 - 8.0 pH LAB URINALYSIS - AUTOMATED METHOD 04/29/2024 6:46 PM [facility] Leukocytes, Urine Negative Negative LAB URINALYSIS - AUTOMATED METHOD 04/29/2024 6:46 PM [facility] Nitrite, Urine Negative Negative LAB URINALYSIS - AUTOMATED METHOD 04/29/2024 6:46 PM [facility] Protein, Urine 100(A) <=Trace mg/dL LAB URINALYSIS - AUTOMATED METHOD 04/29/2024 6:46 PM [facility] Glucose, Urine >=1000(A) Negative mg/dL LAB URINALYSIS - AUTOMATED METHOD 04/29/2024 6:46 PM [facility] Ketones, Urine Negative Negative mg/dL LAB URINALYSIS - AUTOMATED METHOD 04/29/2024 6:46 PM [facility] Urobilinogen , Urine 0.2 0.2 - 1.0 mg/dL LAB URINALYSIS - AUTOMATED METHOD 04/29/2024 6:46 PM [facility] Bilirubin, Urine Negative Negative LAB URINALYSIS - AUTOMATED METHOD 04/29/2024 6:46 PM [facility] Blood, Urine Trace(A) Negative LAB URINALYSIS - AUTOMATED METHOD 04/29/2024 6:46 PM [facility] RBC, Urine 3.0 0 - 4 /HPF LAB URINALYSIS - AUTOMATED METHOD 04/29/2024 6:46 PM [facility] WBC, Urine 0.8 0 - 4 /HPF LAB URINALYSIS - AUTOMATED METHOD 04/29/2024 6:46 PM [facility] Squamous Epithelial, Urine 6 0 - 60 /LPF LAB URINALYSIS - AUTOMATED METHOD 04/29/2024 6:46 PM [facility] Bacteria, Urine Negative Negative /HPF LAB URINALYSIS - AUTOMATED METHOD 04/29/2024 6:46 PM [facility] Hyaline Casts, Urine 0.0 0 - 3 /LPF LAB URINALYSIS - AUTOMATED METHOD 04/29/2024 6:46 PM [facility] Spermatozoa, Urine Present(A) (none) /HPF LAB URINALYSIS - AUTOMATED METHOD 04/29/2024 6:46 PM [facility] Urine Urine specimen obtained by clean catch procedure / Unknown Non-blood Collection / Unknown 04/29/2024 5:28 PM EST 04/29/2024 5:51 PM EST Jemal Long MD LAB URINE ORDERAB LES [facility] [address] [place] [address], * Styles urine culture tube (04/29/2024 5:28 PM EST) Extra Tube Hold for add-ons. 04/29/2024 7:01 PM [facility] Comment:Auto resulted. Urine Urine specimen obtained by clean catch procedure / Unknown Non-blood Collection / Unknown 04/29/2024 5:28 PM EST 04/29/2024 5:51 PM EST Jemal Long MD LAB URINE ORDERAB LES [facility] [address] [place] [address], [place] [phone] * Beta hydroxybutyrate (04/29/2024 5:13 PM EST) Beta-Hydroxybu tyrate 1.5 0.2 - 2.8 mg/dL LAB CHEMISTRY METHOD 04/29/2024 5:58 PM EST [facility] Blood Venous blood specimen / Unknown Venipuncture / Unknown 04/29/2024 5:13 PM EST 04/29/2024 5:32 PM EST Jemal Long MD LAB BLOOD ORDERAB LES [facility] [address] [place] [address], * (ABNORMAL) CBC auto differential (04/29/2024 5:13 PM EST) [facility] WBC 6.3 4.8 - 10.8 K/mcL LAB HEMETOLOGY METHOD 04/29/2024 5:39 PM [facility] RBC 5.10 4.50 - 5.50 M/mcL LAB HEMETOLOGY METHOD 04/29/2024 5:39 PM [facility] Hemoglobin 13.7 13.5 - 17.5 g/dL LAB HEMETOLOGY METHOD 04/29/2024 5:39 PM [facility] Hematocrit 42.5 42.0 - 54.0 % LAB HEMETOLOGY METHOD 04/29/2024 5:39 PM [facility] MCV 83.0 79.0 - 98.0 FL LAB HEMETOLOGY METHOD 04/29/2024 5:39 PM [facility] MCH 26.8(L) 27.0 - 32.0 pcg LAB HEMETOLOGY METHOD 04/29/2024 5:39 PM [facility] MCHC 32.2 32.0 - 37.0 g/dL LAB HEMETOLOGY METHOD 04/29/2024 5:39 PM [facility] RDW 12.9 11.0 - 15.0 % LAB HEMETOLOGY METHOD 04/29/2024 5:39 PM [facility] Platelets 176 130 - 400 K/mcL LAB HEMETOLOGY METHOD 04/29/2024 5:39 PM [facility] MPV 11.8(H) 7.0 - 11.0 FL LAB HEMETOLOGY METHOD 04/29/2024 5:39 PM [facility] NRBC 0.0 <1.0 % LAB HEMETOLOGY METHOD 04/29/2024 5:39 PM [facility] NRBC Absolute 0.00 <0.10 K/mcL LAB HEMETOLOGY METHOD 04/29/2024 5:39 PM [facility] Neutrophils Relative 74.1 % LAB HEMETOLOGY METHOD 04/29/2024 5:39 PM [facility] Lymphocytes Relative 18.5 % LAB HEMETOLOGY METHOD 04/29/2024 5:39 PM [facility] Monocytes Relative 6.2 % LAB HEMETOLOGY METHOD 04/29/2024 5:39 PM [facility] Eosinophils Relative 0.8 % LAB HEMETOLOGY METHOD 04/29/2024 5:39 PM [facility] Basophils Relative 0.2 % LAB HEMETOLOGY METHOD 04/29/2024 5:39 PM [facility] Immature Granulocytes Relative 0.2 % LAB HEMETOLOGY METHOD 04/29/2024 5:39 PM [facility] Neutrophils Absolute 4.66 1.50 - 7.00 K/mcL LAB HEMETOLOGY METHOD 04/29/2024 5:39 PM [facility] Lymphocytes Absolute 1.16 1.00 - 5.00 K/mcL LAB HEMETOLOGY METHOD 04/29/2024 5:39 PM [facility] Monocytes Absolute 0.39 0.20 - 1.00 K/mcL LAB HEMETOLOGY METHOD 04/29/2024 5:39 PM EST [facility] Eosinophils Absolute 0.05 0.00 - 0.50 K/[facility] LAB HEMETOLOGY METHOD 04/29/2024 5:39 PM EST [facility] Basophils Absolute 0.01 0.00 - 0.20 K/mcL LAB HEMETOLOGY METHOD 04/29/2024 5:39 PM EST [facility] Immature Granulocytes Absolute 0.01 0.00 - 0.03 K/[facility] LAB HEMETOLOGY METHOD 04/29/2024 5:39 PM EST [facility] Blood Venous blood specimen / Unknown Venipuncture / Unknown 04/29/2024 5:13 PM EST 04/29/2024 5:32 PM EST Jemal Long MD LAB BLOOD ORDERAB LES [facility] [address] [place] [address], [place] [phone] * (ABNORMAL) Magnesium (04/29/2024 5:13 PM EST) Pathologist [facility] Magnesium 1.8(L) 1.9 - 2.6 mg/dL LAB CHEMISTRY METHOD 04/29/2024 5:58 PM EST [facility] Blood Venous blood specimen / Unknown Venipuncture / Unknown 04/29/2024 5:13 PM EST 04/29/2024 5:32 PM EST Jemal Long MD LAB BLOOD ORDERAB LES [facility] [address] [place] [address], [place] [phone] * (ABNORMAL) Blood gas, venous (04/29/2024 5:13 PM EST) pH, Roger 7.36 7.32 - 7.42 pH 04/29/2024 5:34 PM [facility] pCO2, Roger 41 41 - 51 mmHg 04/29/2024 5:34 PM [facility] pO2, Roger 54(H) 25 - 40 mmHg 04/29/2024 5:34 PM [facility] HCO3, Venous 22.8 22.0 - 26.0 mmol/L 04/29/2024 5:34 PM [facility] O2 Sat, Roger 86.6 % 04/29/2024 5:34 PM [facility] Base Excess, Roger -2.2(L) -2.0 - 2.0 mmol/L 04/29/2024 5:34 PM [facility] Blood Venous blood specimen / Unknown Venipuncture / Unknown 04/29/2024 5:13 PM EST 04/29/2024 5:31 PM EST Jemal Long MD LAB BLOOD ORDERAB LES [facility] [address] [place] [address], * (ABNORMAL) Basic metabolic panel (04/29/2024 5:13 PM EST) Sodium 136 133 - 145 mmol/L LAB CHEMISTRY METHOD 04/29/2024 6:05 PM [facility] Potassium 4.4 3.5 - 5.5 mmol/L LAB CHEMISTRY METHOD 04/29/2024 6:05 PM [facility] Chloride 105 96 - 110 mmol/L LAB CHEMISTRY METHOD 04/29/2024 6:05 PM [facility] CO2 21 21 - 32 mmol/L LAB CHEMISTRY METHOD 04/29/2024 6:05 PM [facility] Anion Gap 10 3 - 11 LAB CHEMISTRY METHOD 04/29/2024 6:05 PM [facility] Glucose 729(HH) 70 - 100 mg/dL LAB CHEMISTRY METHOD 04/29/2024 6:05 PM [facility] BUN 29(H) 5 - 25 mg/dL LAB CHEMISTRY METHOD 04/29/2024 6:05 PM [facility] Creatinine 2.15(H) 0.70 - 1.30 mg/dL LAB CHEMISTRY METHOD 04/29/2024 6:05 PM [facility] eGFR 34(L) >=60 mL/min/1. 73m2 LAB CHEMISTRY METHOD 04/29/2024 6:05 PM [facility] Comment:Calculation based on the??Chronic Kidney Disease Epidemiology Collaboration (CKD-EPI) equation refit??without adjustment for race. BUN/Creatinine Ratio 13.5 LAB CHEMISTRY METHOD 04/29/2024 6:05 PM [facility] Calcium 9.3 8.5 - 10.5 mg/dL LAB CHEMISTRY METHOD 04/29/2024 6:05 PM [facility] Blood Venous blood specimen / Unknown Venipuncture / Unknown 04/29/2024 5:13 PM EST 04/29/2024 5:32 PM EST Jemal Long MD LAB BLOOD ORDERAB LES [facility] [address] [place] [address], * ECG-Annotated (04/29/2024) Provider Onbase ECG ORDERABLES from Last 3 Months Care Teams Knitter Operator Relationship Specialty Start Date End Date Hanny Thompson PA [address] [place] [id number] PCP - General 09/11/22
[2024-06-20 15:25] VITALS: BP 140/70; PULSE 73; O2SAT 99; BMI 32.9
== END 2024-06-20 15:42 | disposition home or self-care (01) ==
PROVIDERS: PCP Physician Assistant; Visit Provider Internal Medicine Nephrology
DX: N18.31 Chronic kidney disease, stage 3a (principal); I10 Essential (primary) hypertension
CPT/HCPCS: 99214

== ENCOUNTER 2024-10-27 15:13 | Outpatient (REF) | payer OTHER, SELFPAY ==
--- OUTSIDE RECORDS SUMMARY | 2024-10-27 15:16 | XMS_ITS ---
Author Name [facility] Organization Unknown Care Team Organization Name Specialty Phone Email Start Date End Edilson luz [facility] 10/16/2022 [facility]
[2024-10-27 18:11] LABS: Appearance Urine Clear; Color Urine Yellow; Glucose Urine UA >=1000 mg/dL (Negative); Leukocyte Esterase Urine Negative (Negative); Nitrite Urine Negative (Negative); PH 5.5 (5.0-9.0); Specific Gravity - Urine 1.025 (1.005-1.025); UMIC TRIGGER UA YES; Urine Blood Negative (Negative); Urine Ketones Trace mg/dL (Negative); Urine Protein Trace mg/dL (Neg-Trace)
[2024-10-27 18:16] LABS: Bacteria Urine None Seen (None Seen); Hyaline Casts Urine 0-2 /LPF (0-2); RBC Urine 0-2 /HPF (0-2); Squamous Epithelial Cell Urine 0-2 /HPF (0-2); WBC Urine 0-5 /HPF (0-5)
[2024-10-27 18:31] LABS: Anion Gap 13 (12-20); Blood Urea Nitrogen 37 mg/dL (9-16); Carbon Dioxide 25 mmol/L (22-29); Chloride 103 mmol/L (96-108); Estimated Glomerular Filt Rate 34; Potassium 3.6 mmol/L (3.3-5.1); Sodium 137 mmol/L (135-145)
[2024-10-27 18:37] LABS: Creatinine Urine 176.23 mg/dL; Protein/Creatinine Ratio, Ur 0.09 (<0.2); Total Protein Urine Random 16 mg/dL (<12)
== END 2024-10-27 15:14 | disposition home or self-care (01) ==
LOC: HO.HKASLDS 15:13
PROVIDERS: Visit Provider Internal Medicine Nephrology
DX: N18.31 Chronic kidney disease, stage 3a (principal); I10 Essential (primary) hypertension
CPT/HCPCS: 36415; 80051; 81001; 82565; 82570; 84156; 84520

== ENCOUNTER 2024-10-31 14:02 | Outpatient (AMB) | payer OTHER, SELFPAY ==
[2024-10-31 14:13] VITALS: BP 118/68; PULSE 58; O2SAT 97; BMI 31.8
--- NOTE | 2024-10-31 14:13 | HO.NEPHOV_ITS ---
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 His blood sugar is better. His blood pressure has been at goal. He does not take any nonsteroidal anti- inflammatories. He denies nausea, vomiting, diarrhea, chest pain, shortness of breath, paroxysmal nocturnal dyspnea, orthopnea or pedal edema. He does not have any orthostatic symptoms. He claims to be compliant with his medications. His serum creatinine has gone up to 2.0 He has SOBE. All other systems have been reviewed and were negative. [facility] Medical History (Updated 10/31/24 @ 14:33 by John Loredo MD) Hypertension Chronic kidney disease, stage 3a Proteinuria Hematuria Family History Sister Hypertension Social History Alcohol intake: current Patient Tobacco Use Status: Former Tobacco user Review of Systems Const All systems reviewed & are unremarkable except as noted in HPI and below Physical Exam Vital Signs: Last Vital Signs Pulse 58 10/31/24 14:13 BP 118/68 10/31/24 14:13 Pulse Ox 97 10/31/24 14:13 Oxygen Delivery Method Room Air 10/31/24 14:13 BMI result Body Mass Index 31.8 Const General: comfortable and no acute distress Orientation/consciousness: patient oriented x3 HEENT Head: Yes normocephalic Mouth: Normal oral and palatal mucosa present Eyes EOM: EOMs intact bilaterally Neck Neck: Yes supple Resp Auscultation: clear to auscultation bilaterally Cardio Jugular venous distension: no JVD Rate: regular rate GI Palpation (GI): Soft to palpation Auscultation: normal bowel sounds General: Yes no CVA tenderness Back/Spine/Pelvis Back: no CVA tenderness Skin General skin exam: no rashes or lesions noted Neuro General: patient oriented x3 and moves all extremities Extrem General: Yes no pedal edema Results Reviewed Nephrology Results: Sodium 137 mmol/L (135-145) 10/27/24 Potassium 3.6 mmol/L (3.3-5.1) 10/27/24 Chloride 103 mmol/L (96-108) 10/27/24 Carbon Dioxide 25 mmol/L (22-29) 10/27/24 BUN 37 mg/dL (9-16) H 10/27/24 Creatinine 2.00 mg/dL (0.5-1.4) H 10/27/24 Calcium 9.6 mg/dL (8.4-10.2) 07/27/23 Urine Protein Trace mg/dL (Neg-Trace) 10/27/24 Urine Creatinine 176.23 mg/dL 10/27/24 Protein/Creatinin Ratio 0.09 (<0.2) 10/27/24 Assessment & Plan Assessment & Plan (1) STEFANY (acute kidney injury): Code(s): N17.9 - Acute kidney failure, unspecified Category: Medical (2) Chronic kidney disease, stage 3a: Code(s): N18.31 - Chronic kidney disease, stage 3a Category: Medical (3) Hypertension: Code(s): I10 - Essential (primary) hypertension Category: Medical Qualifiers: Hypertension type: primary hypertension Qualified Code(s): I10 - Essential (primary) hypertension (4) Dyspnea on exertion: Code(s): R06.09 - Other forms of dyspnea Category: Medical Plan Florian has CKD stage 3 at baseline. He likely has IgA nephropathy. His serum creatinine has gone up from baseline. I held his chlorthalidone. I may have to cut back on his ARB if his serum creatinine does not settle. He has history of microscopic hematuria. His proteinuria now is undetectable. His blood pressure has been at goal. He clearly needs to lose weight. I asked him to keep his blood sugar & blood pressure at goal. He is already taking fish oil. He had imaging studies and cystoscopy by Urology. He avoids nonsteroidal anti- inflammatories and maintain good hydration. He is on Farxiga 10 mg daily . I referred him to cardiology. I answered all his questions. Follow-up lab work ordered and follow-up appointment given Orders: Orders Creatinine 1 Month I10 - Essential (primary) hypertension, N17.9 - Acute kidney failure, unspecified, N18.31 - Chronic kidney disease, stage 3a, R06.09 - Other forms of dyspnea Blood Urea Nitrogen 1 Month I10 - Essential (primary) hypertension, N17.9 - Acute kidney failure, unspecified, N18.31 - Chronic kidney disease, stage 3a, R06.09 - Other forms of dyspnea Electrolytes 1 Month I10 - Essential (primary) hypertension, N17.9 - Acute kidney failure, unspecified, N18.31 - Chronic kidney disease, stage 3a, R06.09 - Other forms of dyspnea Referrals Cardiology Referral R06.09 - Other forms of dyspnea Coding Level of Care Code Est Pt Level 4 (83684) Diagnoses STEFANY (acute kidney injury) N17.9 Chronic kidney disease, stage 3a N18.31 Primary hypertension I10 Hypertension type: primary hypertension Dyspnea on exertion R06.09
--- OUTSIDE RECORDS SUMMARY | 2024-10-31 16:10 | XMS_ITS | Clinical Summary ---
Author Organization [facility] Address [address] [place] [address] Phone Care Team Providers Care Hvac Field Service Technician Name Role Phone Hanny Thompson Primary Care Provider [phone] Allergies No known active allergies Medications insulin glargine (LANTUS) 100 unit/mL injection Inject 40 Units under the skin at bedtime for 15 days. 10 mL 04/29/2024 Active Medical History Medical History Date Comments Uncontrolled type 2 diabetes mellitus with hyperglycemia ([facility] V24, [facility] V28) DX:Uncontrolled type 2 diabe ciara mellitus with hyperglycemia (HCC) Chronic kidney disease, stag e 3b ([facility] V24, [facility] V28) DX:Chronic kidney disease, stage 3b (HCC) Social History Tobacco Use Types Packs/Day Years Used Date Smoking Tobacco: Former Cigarettes Smokeless Tobacco: Never Alcohol Use Standard Drinks/Week Comments Yes 0 (1 standard drink = 0.6 oz pur e alcohol) Sex and Gender Information Value Date Recorded Sex Assigned at Not on file Legal Sex Male 9:27 AM EST Gender Identity Not on file Sexual Orientation Not on file Obstetrics History Last Filed [...] Vaccines (1 - Tdap) 11/14/1978 RSV Immunization Adult Patients (1 - Risk 60-74 years 1-dose series) [...] exists HIV Screening Completed 01/31/2020 Pneumococcal Vaccine: 50+ Years Completed 03/17/2022 Pneumococcal Vaccine: Pediatrics (0 to 5 Years) [...] patient's age to complete this topic Meningococcal B Vaccine Aged Out No l onger eligible based on patient's age to complete this topic RSV Immunization Patients Under 20 months Aged Out No longer eligible based on patient's age to complete this topic Varicella Vaccines Aged Out No longer eligible based on patient's age to complete this topic Procedures Procedure Name Priority Date/Time Associated Diagnosis Comments BASIC METABOLIC PANEL STAT 04/29/2024 5:13 PM EST from Last 3 Months or Most Recently Relevant to Health Maintenance Results * (ABNORMAL) Basic metabolic panel (04/29/2024 5:13 PM EST) Sodium 136 133 - 145 mmol/L LAB CHEMISTRY METHOD 04/29/2024 6:05 PM [facility] Potassium 4.4 3.5 - 5.5 mmol/L LAB CHEMISTRY METHOD 04/29/2024 6:05 PM [facility] Chloride 105 96 - 110 mmol/L LAB CHEMISTRY METHOD 04/29/2024 6:05 PM [facility] CO2 21 21 - 32 mmol/L LAB CHEMISTRY METHOD 04/29/2024 6:05 PM [facility] Anion Gap 10 3 - 11 LAB CHEMISTRY METHOD 04/29/2024 6:05 PM [facility] Glucose 729(HH) 70 - 100 mg/dL LAB CHEMISTRY METHOD 04/29/2024 6:05 PM [facility] BUN 29(H) 5 - 25 mg/dL LAB CHEMISTRY METHOD 04/29/2024 6:05 PM [facility] Creatinine 2.15(H) 0.70 - 1.30 mg/dL LAB CHEMISTRY METHOD 04/29/2024 6:05 PM EST [facility] eGFR 34(L) >=60 mL/min/1. 73m2 LAB CHEMISTRY METHOD 04/29/2024 6:05 PM EST [facility] Comment:Calculation based on the??Chronic Kidney Disease Epidemiology Collaboration (CKD-EPI) equation refit??without adjustment for race. BUN/Creatinine Ratio 13.5 LAB CHEMISTRY METHOD 04/29/2024 6:05 PM [facility] Calcium 9.3 8.5 - 10.5 mg/dL LAB CHEMISTRY METHOD 04/29/2024 6:05 PM [facility] Blood Venous blood specimen / Unknown Venipuncture / Unknown 04/29/2024 5:13 PM EST 04/29/2024 5:32 PM EST Jemal Long MD LAB BLOOD ORDERABLES Della l Result [facility] [address] [place] [address], from Last 3 Months or Most Recently Relevant to Health Maintenance Insurance [facility] Care Teams Hvac Field Service Technician Relationship Specialty Start Date End Date Hanny Thompson PA [address] [place] [address] [facility] - General 09/11/22
== END 2024-10-31 14:37 | disposition home or self-care (01) ==
LOC: HO.HKAS 14:02
PROVIDERS: PCP Physician Assistant; Visit Provider Internal Medicine Nephrology
DX: N17.9 Acute kidney failure, unspecified (principal); N18.31 Chronic kidney disease, stage 3a; I10 Essential (primary) hypertension; R06.09 Other forms of dyspnea
CPT/HCPCS: 99214

== ENCOUNTER → 2024-10-31 14:02 | Outpatient (BNVA) | payer OTHER, SELFPAY | PROVIDERS: PCP Physician Assistant; Visit Provider Internal Medicine Nephrology ==

== ENCOUNTER 2024-12-04 16:00 | Outpatient (REF) | payer OTHER, SELFPAY ==
--- OUTSIDE RECORDS SUMMARY | 2024-12-04 16:20 | XMS_ITS | Clinical Summary ---
Author Organization [facility] Address [address] [place] [address] Phone Care Team Providers Care Shoe Patternmaker Name Role Phone Hanny Thompson Primary Care Provider [phone] Allergies No known active allergies Medications insulin glargine (LANTUS) 100 unit/mL injection Inject 40 Units under the skin at bedtime for 15 days. 10 mL 04/29/2024 Active Medical History Medical History Date Comments Uncontrolled type 2 diabetes mellitus with hyperglycemia ([facility] V24, [facility] V28) DX:Uncontrolled type 2 diabe ciara mellitus with hyperglycemia (HCC) Chronic kidney disease, stag e 3b ([facility] V24, [facility] V28) DX:Chronic kidney disease, stage 3b (HCC) [...] 102 04/29/2024 4:43 PM EST Temperature 36.7 C (98.1 F) 04/29/2024 4:43 PM EST Respiratory Rate 18 04/29/2024 4:43 PM EST [...] - Risk 60-74 years 1-dose series) 2019 Abdominal Aortic Aneurysm (AAA) Screen 04/19/2022 Colorectal Cancer Screening: Colonoscopy 04/19/2022 Social Influencers of Health Screening 04/19/2022 Zoster Vaccines (2 of 2) 09/08/2022 07/14/2022 COVID-19 Vaccine ( - season) 2024 01/02/2022, 04/28/2021, 09/16/2020, Additional history exists Diabetes: Annual Urine Albumin-Creatinine Ratio (uACR) 04/29/2024 07/14/2022, 01/31/2020, 10/21/2018, Additional history exists Depression Screening 05/17/2024 Diabetes: Blood Sugar Control Test (HGBA1C) 06/01/2024 11/30/2023 Influenza Vaccine (#1) 2025 , 02/16/2023, 03/02/2022, Additional history exists Diabetes: Annual GFR (Glomerular Filtration Rate) 04/29/2025 04/29/2024, 11/30/2023 Falls Risk Assessment 04/29/2025 04/29/2024 Hypertension/CHF/CAD Annual BMP Blood Test 04/29/2025 04/29/2024, 11/30/2023 Cholesterol Screening (Lipid Panel) 11/29/2028 11/30/2023, 11/30/2023, 12/10/2021, Additional history exists Pneumococcal Vaccine: 50+ Years Completed 03/17/2022 Hepatitis C Screening Completed 11/30/2023, 020 HIB Vaccines Aged Out No longer eligi [...] mmol/L LAB CHEMISTRY METHOD 04/29/2024 6:05 PM [facility] Potassium 4.4 3.5 - 5.5 mmol/L LAB CHEMISTRY METHOD 04/29/2024 6:05 PM [facility] Chloride 105 96 - 110 mmol/L LAB CHEMISTRY METHOD 04/29/2024 6:05 PM [facility] CO2 21 21 - 32 mmol/L LAB CHEMISTRY METHOD 04/29/2024 6:05 PM [facility] Anion Gap 10 3 - 11 LAB CHEMISTRY METHOD 04/29/2024 6:05 PM [facility] Glucose 729(HH) 70 - 100 mg/dL LAB CHEMISTRY METHOD 04/29/2024 6:05 PM [facility] BUN 29(H) 5 - 25 mg/dL LAB CHEMISTRY METHOD 04/29/2024 6:05 PM [facility] Creatinine 2.15(H) 0.70 - 1.30 mg/dL LAB CHEMISTRY METHOD 04/29/2024 6:05 PM EST [facility] eGFR 34(L) >=60 mL/min/1. 73m2 LAB CHEMISTRY METHOD 04/29/2024 6:05 PM EST [facility] Comment:Calculation based on the Chronic Kidney Disease Epidemiology Collaboration (CKD-EPI) equation refit without adjustment for race. BUN/Creatinine Ratio 13.5 LAB CHEMISTRY METHOD 04/29/2024 6:05 PM [facility] Calcium 9.3 8.5 - 10.5 mg/dL LAB CHEMISTRY METHOD 04/29/2024 6:05 PM [facility] Blood Venous blood specimen / Unknown Venipuncture / Unknown 04/29/2024 5:13 PM EST 04/29/2024 5:32 PM EST Jemal Long MD LAB BLOOD ORDERABLES Della l Result [facility] [address] [place] [address], from Last 3 Months or Most Recently Relevant to Health Maintenance Insurance [facility] Care Teams Shoe Patternmaker Relationship Specialty Start Date End Date Hanny Thompson PA [address] [place] [address] PCP - General 09/11/22
--- OUTSIDE RECORDS SUMMARY | 2024-12-04 16:21 | XMS_ITS | Encounter Summary ---
Author Organization [facility] Address [address] [place] [id number] Phone Care Team Providers Care Court Operations Clerk Name Role Phone Kwame Powell MD Primary Care Provider + Reason for Referral * MRI/CAT Scan - Closed Specialty Diagnoses / Procedures Referred By Contac t Referred To Contact Radiology Diagnoses Chest pain on exertion Procedures NC Myocardial Perfusion Exercise Multiple Leni Mendez MD Phone: tel: fax: [email or web address] Referral ID Status Reason Start Date Expiration Date Visits Re quested Visits Authorized [id number] Closed 12/16/2018 01/14/2019 1 1 Encounter Details Date Type Department Care Team (Latest Contact Info) Description 12/06/2018 Transcribe [facility] [address] [place] [address] [address] Floor, [address] [place] [address] Leni Mendez MD [address] [place] [address] [email or web address] Chest pain on exertion (Primary Dx) Social History Tobacco Use Types Packs/Day Years Used Date Smoking Tobacco: Former Smokeless Tobacco: Never Alcohol Use Standard Drinks/Week Comments Yes 0 (1 standard drink = 0.6 oz pur e alcohol) few times a months Sex and Gender Information Value Date Recorded Sex Assigned at Not on file Legal Sex Male 11:35 AM EDT Gender Identity Not on file Sexual Orientation Not on file documented as of this encounter Plan of Treatment Not on file documented as of this encounter Results * NC Myocardial Perfusion Exercise Multiple (12/23/2018 10:08 AM EDT) Nuc Stress EF 49 % LV Systolic Volume 56 mL LV Diastolic Volume 108 mL EF 48 % LV Systolic Volume Index 58 mL/m2 LV Diastolic Volume Index 113 mL/m2 Anatomical Region Laterality Modality Heart, Vascular Ultrasound Narrative 12/27/2018 10:08 AM EDT 1. Myocardial perfusion imaging is normal without any reversible perfusion defect after Regadenoson infusion. 2. LVEF of 48% at rest and 49% after IV administration of Regadenoson with normal wall motion and thickening. Nuclear Study Quality TYPE OF STUDY: Myocardial Perfusion Imaging after Regadenoson protocol with gated SPECT. PROTOCOL USED: One day Regadenoson rest-stress protocol in the supine and prone position. Images were obtained in gated tomographic technique. Images were processed in SPECT format, reconstructed tomographically and compared [id number] in short axis, horizontal long axis and vertical long axis. DOSE: Technetium 99m Sestamibi 7.1 mCi injected intravenously at rest on 12/23/2018 with post injection scan time of 60 minutes. Technetium 99m Sestamibi 21.1 mCi injected intravenously after Regadenoson infusion on 12/23/2018 with post injection scan time of 40 minutes. Overall image quality is good . Diaphragmatic attenuation artifact is present. Study was gated successfully. Perfusion Defect The lung to heart ratio is 0.20. Response to Stress BMI: 33.73 Test converted from an exercise to pharmacologic study due to hypertensive blood pressure response to exercise and inability to reach 85% MPHR. The patient was infused with 0.4 mg of Regadenoson (Lexiscan) intravenously over 10 seconds followed immediately by the injection of the Tc99m Sestamibi. Patient tolerated infusion without complications. Test terminated due to completion of protocol. SUMMARY: 1. RESTING ECG: sinus rhythm HR 63 bpm with NSSTW abnormalities. 2. EXERCISE ECG: inferolateral TWI with Lexiscan which is a non-specific finding. 3. SYMPTOMS: no chest pain. 4. PHYSIOLOGY: Appropriate physiologic response to Lexiscan injection. Resting HR of 60 bpm magnus to a max HR of 126 bpm. Vital signs stable and returned to baseline prior to discharge from the lab. 5. ARRHYTHMIA: occasional isolated PACs and sinus arrhythmia. CONCLUSION: Normal ECG portion of pharmacologic nuclear stress test. No ECG changes suggestive of ischemia. Patient tolerated Lexiscan injection without complication. Nuclear images and report to follow. Davina Beltran PA-C . Perfusion Comments Stress LV cavity volume was 82 mL. Resting LV cavity volume was 77 mL. The stress/rest perfusion ratio is 1.06. There is no evidence of transient ischemic dilation (TID). The TID ratio was 1.1. Stress Function Comments Post-stress ejection fraction was 49%. Stress end diastolic index: 113 mL/m2. Stress end systolic index: 58 mL/m2. Nuclear Prior Study There is no prior study available for comparison. Rest Function Comments Resting ejection fraction was 48%. Rest end diastolic index: 108 mL. Rest end systolic index: 56 mL. Perfusion Scoring Stress Summed Score: 0 Percent Normal: 0.00% The left ventricular perfusion is normal. Perfusion Scoring Resting Summed Score: 0 Percent Normal: 0.00% The left ventricular perfusion is normal. Leni Mendez MD CV NM CARDIAC Final Result documented in this encounter Visit Diagnoses Diagnosis Chest pain on exertion- Primary Unspecified chest pain Chest pain on exertion- Primary Unspecified chest pain documented in this encounter Care Teams Court Operations Clerk Relationship Specialty Start Date End Date Kwame Powell MD [address] [place] [address] PCP - General Hematology and Oncology 12/04/16 documented as of this encounter Additional Source Comments The information contained in this document represents components of the legal health record. It is not the complete legal health record.[facility]
--- OUTSIDE RECORDS SUMMARY | 2024-12-04 16:21 | XMS_ITS | Clinical Summary ---
Author Organization [facility] Address [address] [place] [address] Care Team Providers Care Box Machine Operator Name Role Phone Hanny Thompson PA-C Primary Care Provider [phone] Source Comments PLEASE NOTE, if this patient is a minor, it may be UNLAWFUL to discuss sensitive information that is contained in these records (such as FAMILY PLANNING, MENTAL HEALTH or SUBSTANCE ABUSE) with the minor patient's parent or other person without the patient's specific authorization.[facility] Allergies Active Allergy Reactions Criticality Noted Date Comments Peanuts Other (See Comments) High 02/14/2013 cough Medications ketoconazole (NIZORAL) 2 % cream Apply topically 2 (two) times daily 30 g 1 5 Active albuterol HFA 90 mcg/actuation inhaler Inhale 2 Puffs into the lungs every 4 to 6 (four to six) hours as needed 5 Active ADVAIR HFA 115-21 mcg/actuation inhaler INHALE 2 PUFF(S) TWICE A DAY. RINSE MOUTH AFTER USE. 5 Active fluticasone (FLONASE) 50 mcg/actuation nasal spray Place 2 Sprays in both nostrils 5 Active dulaglutide (TRULICITY) 3 mg/0.5 mL pen injectorIndicati ons:Type 2 diabetes mellitus with hyperglycemia, with long-term current use of insulin (CMS & HHS-HCC),Class 1 obesity due to excess calories with serious comorbidity and body mass index (BMI) of 30.0 to 30.9 in adult Inject 3 mg into the skin once a week Every Wednesday 2 mL 5 5 Active dapagliflozin propanediol (FARXIGA) 10 mg tabIndications:T ype 2 diabetes mellitus with hyperglycemia, with long-term current use of insulin ([facility]) Take 1 Tablet by mouth every morning (Patient will use GoodRx or 340B, whichever one is cheaper) 90 Tablet 2 5 Active chlorthalidone (HYGROTEN) 25 mg tabletIndication s:Hypertension, essential, benign Take 1 Tablet by mouth once daily 90 Tablet 4 5 Active atorvastatin (LIPITOR) 40 mg tabletIndication s:Type 2 diabetes mellitus without complication, without long-term current use of insulin ([facility]) Take 1 Tablet by mouth nightly at bedtime Discontinue simvastatin 90 Tablet 4 5 Active aspirin [address] tabletIndication s:RIBEIRO (dyspnea on exertion) Take 1 Tablet by mouth once daily 90 Tablet 5 5 Active amlodipine-valsa rtan (EXFORGE) 10-160 mg per tabletIndication s:Essential hypertension Take 1 Tablet by mouth every morning Stop amlodipine 10 mg & lisinopril 20 mg 90 Tablet 3 5 Active tamsulosin (FLOMAX) 0.4 mg 24 hr capsuleIndicatio ns:Benign prostatic hyperplasia with urinary frequency TAKE 2 CAPSULES BY MOUTH EVERY DAY 180 Capsule 4 5 Active Active Problems Problem Noted Date Diagnosed Date Type 2 diabetes mellitus wit h hyperglycemia, with long-term current use of insulin ([facility]) 07/30/2022 Overview (10/08/2024): DM dx: [phone] per patient reports Glucometer: Hulafrog True Metrix Dexcom G7 sensors ($390) Current Diabetes RX: Trulicity 3 mg once weekly every Wednesday Dapagliflozin 10 mg daily every morning (CKD/microalbuminuria) MYLA-I/ARB: Amlodipine-valsartan 10/160 mg daily Statin: Atorvastatin 40 mg daily at bedtime Pneumococcal vaccine: PCV20 (03/17/22) Diabetes foot exam: 07/11/24 with Ana RN Normal pedal pulses, normal monofilament exam, hygiene: good, maceration or scaling in webspaces, and onychomycosis. Dry scaly, non cracked skin. He denies pain, numbness and tingling in feet. Bilateral non painful heel spurs. He was seen by loan documentation specialist, he is deferring treatment. Maceration between 3 & 4 web spaces. 07/14/22 per HM Diabetes retinal exam: 07/19/24 at [facility] No diabetic retinopathy or macular edema OU - monitor regularly Mild cataract OU - not visually significant - discussed with patient - continue to monitor Refractive error - patient happy with vision without correction, RX available if needed F/U 1 year History of COVID-19 09/11/2019 02/19/2021 Primary insomnia [...] October 06, 2019 11:51 EDT Encounter info: [id number][place] [facility] [place] 10/06/2019 - 10/06/2019 * [...] consolidation. Hepatic steatosis. Bilateral adrenal adenomas. A [place] message has been communicated via the [employer] system on 10/06/2019 11:51 AM, Message ID [id number]. WSN: [id number] Ordering Physician: Hanny Thompson Signature Line Dictated [...] September 08, 2019 12:44 EDT Encounter info: [id number], [facility], 09/08/2019 - 09/08/2019 * Final Report * [...] Morales at the time of dictation WSN: [id number] Ordering Physician: Sandra Morales Signature Line Dictated By: Chas Freeman MD Dictated Date/Time: 09/08/19 12:44 p Reviewed By: Chas Freeman MD Signed By: Chas Freeman MD Signed Date/Time: 09/08/19 12:44 pm Transcribed By: CSDevante Transcribed Date/Time: 09/08/19 12:40 pm Chest Portable This document has an image Stage 3b chronic kidney disease ([facility]) 06/02/2019 Overview (07/28/2024): 06/20/24 at [facility] CKDIII, likely has IgA nephropathy, Scr stable Hx of microscopic hematuria, proteinuria undetectable, BP at goal, lose weight On MYLA-inhibitor, avoid NSAID, wanted to start on Jardiance, but not covered 02/17/24 at [facility] at [facility] No medication changes, same as below 10/21/23 at [facility] CKD stage 3, likely has IgA nephropathy. 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 No COVID-19 Tested? - Yes - Date Tested 09/08/19 Testing Location - [facility] - Testing Results - Positive Is patient ? No Uncontrolled type 2 diabetes mellitus with hyperglycemia ([facility]) 02/14/2013 02/01/2024 Encounters Date Type Department Care Team Description 10/08/2024 Results Follow-Up [address] [phone] Aroldo Latham PharmD 10/05/2024 11:00 AM EDT Office Visit [address] [phone] Aroldo Latham PharmD from Last 3 Months Immunizations Immunization Administration Dates Next Due Flu, Cell Culture based, Pre servative Free, 6m+, Flucelvax 01/30/2020,01/30/2019,02/26/2018 Flu, Preservative Free 02/16/2023,2021,02/14/2021,2016 INFLUENZA, SEASONAL, INJECTABLE 01/28/20 16,03/04/2015,02/20/2014,2012 Influenza (FLUBLOK),recombinant,injectable,pres ervative Free 02/01/2024 Moderna COVID-19 Vaccine, re d cap blue label, 12+ Primary Series 04/28/2021,09/16/2020,08/17/2020 PFIZER COVID VACCINE, PURPLE CAP, 12+ 01/02/2022 PNEUMOCOCCAL CONJUGATE PCV 2 0 (Prevnar 20) 03/17/2022 ZOSTER VACCINE, RECOMBINANT (SHINGRIX) 07/14/2022 Social History Tobacco Use Types Packs/Day Years Used Date Smoking Tobacco: Never Smokeless Tobacco: Never Tobacco Cessation:Counseling Given: Not Answered Alcohol Use Standard Drinks/Week Comments No 0 (1 standard drink = 0.6 oz pur e alcohol) sometimes Social Connections Answer Date Recorded Connectedness 0 07/02/2022 Financial Resource Strain Answer Date R ecorded Hard to pay for: Food 1 11/30/2023 Stress Answer Date Recorded Do you feel these kinds of stress these days? 1 11/30/2023 Physical Activity Answer Date Recorded Physical Activity 0 01/07/2019 Food Insecurity Answer Date Recorded Hard to pay for: Food 1 11/30/2023 Transportation Needs Answer Date Record ed Hard to pay for: Transportation 1 11/30/2023 Housing Stability Answer Date Recorded Hard to pay for: Rent/Mortgage payment 1 11/30/2023 Safety and Environment Answer Date Armand rded Safety 0 07/02/2022 Utilities Answer Date Recorded Hard to pay for: Utilities 1 11/29 Employment Answer Date Recorded Stress 0 07/02/2022 Sex and Gender Information Value Date Recorded Sex Assigned at Male 03/01/2017 1:07 PM PDT Legal Sex Male 11:36 AM PDT Gender Identity Male 03/01/2017 1:07 PM PDT Sexual Orientation Straight 03/01/2017 1: 07 PM PDT Last Filed Vital Signs Vital Sign Reading Time Taken Comments Blood Pressure 130/70 10/05/2024 11:31 AM EDT Pulse 90 10/05/2024 11:31 AM EDT Temperature 36.8 C (98.2 F) 04/29/2024 10:13 AM EST Respiratory Rate 16 10/05/2024 11:31 AM EDT Oxygen Saturation 100% 10/05/2024 11:31 AM EDT Inhaled Oxygen Concentration - - Weight 94.3 kg (208 lb) 10/05/2024 11:31 AM EDT Height 177 cm (5' 9.69 ) 10/05/2024 11:31 AM EDT Body Mass Index 30.12 10/05/2024 11:31 AM EDT Plan of Treatment Health Maintenance Due Date Last Done Comments Anxiety Screening [address] Colonography 11/14/2004 Fecal DNA 11/14/2004 Flexible Sigmoidoscopy 11/14/2004 FIT/gFOBT 07/13/2015 07/13/2014 (Decl ined), 05/16/2013 (Declined) Imm-Zoster, Recombinant (2 of 2) 09/08/2022 07/14/19 23 [id number] ( season) 2024 01/02/2022, 04/28/2021, 09/16/2020, Additional history exists Falls Prevention 11/14/2024 Annual Wellness (Adult): Indicated (All Coverage) 11/29/2024 11/30/2023, 03/17/2022, 02/13/2020, Additional history exists Lipid Screening 11/29/2024 11/30/2023, 11/15, 02/19/2021, Additional history exists Imm-Influenza (#1) 2025 02/01/2024, 1 , 03/02/2022, Additional history exists Tobacco Screening 01/31/2025 02/01/2024 Serum Creatinine 04/29/2025 04/29/2024, , 01/04/2023, Additional history exists Diabetes Foot Exam 07/11/2025 07/11/2024, 1 06/11/2023, 07/14/2022, Additional history exists Retinopathy Screening 07/19/2025 07/19/2024 (Managed by Outside Provider), 07/13/2014 (Declined) Urine Albumin Creatinine Rat io Screening 10/05/2025 10/05/2024, 07/14/2022, 01/31/2020, Additional history exists Colonoscopy 06/14/2027 06/14/2020, 05/17, 09/14/2008 Colorectal Cancer Screening 06/14/2027 HIV Screening Completed 01/31/2020 Imm-Pneumococcal 50+ Discontinued 03/17/2022 Alcohol and Drug Screen Discontinued 11/30/19 24, 08/05/2017, 04/25/2015, Additional history exists Depression Annual Screen Discontinued 024, 02/20/2014 (Declined) Hepatitis C Screening Completed 11/30/2023, 020 Hemoglobin A1c Discontinued 10/05/2024, 05/17, 11/30/2023, Additional history exists Imm-DTaP/Tdap/Td Discontinued Goals Goal Patient Goal Type Associated Problems Recent Progress Patient-Stated? Author Blood Pressure < 130/80 Blood Pressure Essential hypertension 130/70(2024 11:31 AM EDT) No Chanell Pizarro, Guy Procedures Procedure Name Priority Date/Time Associated Diagnosis Comments REFERRAL SCANNED DOCUMENT 10/31/2024 3:00 AM EDT HEMOGLOBIN GLYCOSYLATED A1C Routine 10/05/2024 11:43 AM EDT VITAMIN B12 & FOLATE Routine 10/05/2024 11:43 AM EDT Type 2 diabetes mellitus with hyperglycemia, without long-term current use of insulin ([facility]) MICROALBUMIN/CREATININ E RATIO, URINE, RANDOM Routine 10/05/2024 11:43 AM EDT Type 2 diabetes mellitus with hyperglycemia, without long-term current use of insulin ([facility]) GLUCOSE, BLOOD BY GLUCOSE MONITORING DEVICE (CLIA WAIVED)POCT Routine 10/05/2024 11:31 AM EDT Type 2 diabetes mellitus with hyperglycemia, with long-term current use of insulin ([facility]) COMPREHENSIVE METABOLIC PANEL Routine 11/30/2023 4:43 PM EDT Routine general medical examination at a health care facility Hyperlipidemia, mixed Hypertension, essential, benign Non morbid obesity Pulmonary nodule- right posterior rib 1.5 cm 09/08/2019 CXR Type 2 diabetes mellitus with hyperglycemia, with long-term current use of insulin ([facility]) Stage 3b chronic kidney disease (HCC-CMS) RIBEIRO [...] hyperglycemia, with long-term current use of insulin ([facility]) Stage 3b chronic kidney disease (HCC-CMS) RIBEIRO [...] hyperglycemia, with long-term current use of insulin ([facility]) Stage 3b chronic kidney disease (HCC-CMS) RIBEIRO (dyspnea on exertion) Malaise and fatigue Lower urinary tract symptoms (LUTS) Prostate cancer screening COLONOSCOPY Routine 06/14/2020 4:25 PM EST Prostate cancer screening ANTIBODY HIV-1&HIV-2 SINGLE RESULT Routine 01/31/2020 4:05 PM EDT Type 2 diabetes mellitus without complication, without long-term current use of insulin ([facility]) Stage 3 chronic kidney disease ([facility]) Non morbid obesity Hypertension, essential, benign Hyperlipidemia, mixed from Last 3 Months or Most Recently Relevant to Health Maintenance Results * REFERRAL SCANNED DOCUMENT (10/31/2024 3:00 AM EDT) 10/31/2024 3:00 AM EDT Hanny Thompson PA-C SCAN REFERRAL Final Result * (ABNORMAL) MICROALBUMIN/CREATININE RATIO, URINE, RANDOM Urine Routine (10/05/2024 11:43 AM EDT) Pathologist [facility] CREATININE, RANDOM URINE 152 20 - 320 mg/dL [facility] MICROALBUMIN 17.9 mg/dL [facility] Comment: Reference Range Not established MICROALBUMIN/CREA TININE RATIO, RANDOM URINE 118(H) <30 mg/g creat [facility] Comment: The ADA defines abnormalities in albumin excretion as follows: Albuminuria Category Result (mg/g creatinine) Normal to Mildly increased <30 Moderately increased 30-299 Severely increased > OR = 300 The ADA recommends that at least two of three specimens collected within a 3-6 month period be abnormal before considering a patient to be within a diagnostic category. Urine Urine specimen / Unknown 10/05/2024 11:43 AM EDT 10/05/2024 11:43 AM EDT Sepiore [facility] PharmD LAB URINE AMBULATORY Della l Result Performing Organization Address [facility]/ZIP Co de Phone Number [facility] [address] [address], [facility] [address] [address] * VITAMIN B12 & FOLATE Routine (10/05/2024 11:43 AM EDT) Pathologist [facility] VITAMIN B12 483 200 - 1,100 pg/mL [facility] FOLATE, SERUM 19.2 5.5 ng/mL [facility] Comment: Reference Range Low: <3.4 Borderline: 3.4-5.4 Normal: >5.4 Blood Blood / Unknown 10/05/2024 1 1:43 AM EDT 10/05/2024 11:43 AM EDT Sepi[facility]ouglas [facility] PharmD LAB - BLOOD DRAW Edited R esult - Final Performing Organization Address [facility] de Phone Number [facility] [address] [address], [facility] [address] [address] * (ABNORMAL) HEMOGLOBIN GLYCOSYLATED A1C Routine (10/05/2024 11:43 AM EDT) Pathologist [facility] HEMOGLOBIN A1C 7.9(H) <5.7 % [facility] Comment: For someone without known diabetes, a [...] A1c for diagnosis of diabetes for children. 10/05/2024 11:4 3 AM EDT 10/05/2024 11:43 AM EDT Aroldo Hdezis PharmD LAB - BLOOD DRAW Edited R esult - Final Performing Organization Address [facility]/ZIP Co de Phone Number [facility] [address] [address], [facility] [address] [address] * (ABNORMAL) GLUCOSE, BLOOD BY GLUCOSE MONITORING DEVICE (CLIA WAIVED)POCT Routine (10/05/2024 11:31 AM EDT) Pathologist [facility] GLUCOSE 187(A) 70 - 100 mg/dL [facility] OFFICE POCT Capillary Blood Blood / Unknown 11:31 AM EDT Aroldo Hdezis PharmD LAB - BLOOD DRAW Final Re sult Performing Organization Address [facility] de Phone Number [facility] POCT * HEPATITIS C AB W/RFLX HCV RNA, QT, RT PCR (11/30/2023 4:43 PM EDT) [facility] HEPATITIS C ANTIBODY NON-REACT BENJAMIN NON-REACT BENJAMIN [facility] Comment: HCV antibody was non-reactive. There is no laboratory evidence of HCV infection. In most cases, no further action is required. However, if recent HCV exposure is suspected, a test for HCV RNA (test code 75506) is suggested. For additional information please refer to http://education.[employer]/faq/WBZ78h5 (This link is being provided for informational/ educational purposes only.) Blood Blood / Unknown 11/30/2023 4 :43 PM EDT 11/30/2023 4:44 PM EDT Hanny Thompson PA-C LAB - BLOOD DRAW Edited Resu lt - Final Performing Organization Address [facility] Co de Phone Number [facility] [address] [address], [facility] [address] [address] * (ABNORMAL) LIPID PANEL (11/30/2023 4:43 PM EDT) Pathologist [facility] CHOLESTEROL, TOTAL 164 <200 mg/dL [facility] HDL CHOLESTEROL 62 > OR = 40 mg/dL [facility] TRIGLYCERIDES 211(H) <150 mg/dL [facility] Comment: If a non-fasting specimen was collected, consider repeat triglyceride testing on a fasting specimen if clinically indicated. Lynne et al. J. of Clin. Lipidol. 2015;9:129-169. LDL-CHOLESTEROL 71 99 mg/dL (calc) [facility] Comment: Reference range: <100 Desirable range <100 mg/dL for primary prevention; <70 mg/dL for patients with CHD or diabetic patients with > or = 2 CHD risk factors. LDL-C is now calculated using the Lam calculation, which is a validated novel method providing better accuracy than the Friedewald equation in the estimation of LDL-C. Bryant SS et al. CELESTINE. 2013;310(19): 1190-4616 (http://education.[employer]/faq/GYD965) CHOL/HDLC RATIO 2.6 <5.0 (calc) [facility] NON-HDL CHOLESTEROL 102 <130 mg/dL (calc) [facility] Comment: For patients with diabetes plus 1 major ASCVD risk factor, treating to a non-HDL-C goal of <100 mg/dL (LDL-C of <70 mg/dL) is considered a therapeutic option. Blood Blood / Unknown 11/30/2023 4 :43 PM EDT 11/30/2023 4:44 PM EDT us Hanny Thompson PA-C LAB - BLOOD DRAW Final Resul t [facility] [address] [address], [facility] [address] [address] * (ABNORMAL) COMPREHENSIVE METABOLIC PANEL (11/30/2023 4:43 PM EDT) [facility] GLUCOSE 92 65 - 99 mg/dL [facility] Comment: Fasting reference interval UREA NITROGEN (BUN) 34(H) 7 - 25 mg/dL [facility] CREATININE (blood) 1.98(H) 0.70 - 1.35 mg/dL [facility] EGFR 37(L) > OR = 60 mL/min/1. 73m2 [facility] BUN/CREATININE RATIO 17 6 - 22 (calc) [facility] SODIUM 138 135 - 146 mmol/L [facility] POTASSIUM 3.9 3.5 - 5.3 mmol/L [facility] CHLORIDE 105 98 - 110 mmol/L [facility] CARBON DIOXIDE 22 20 - 32 mmol/L [facility] CALCIUM 9.8 8.6 - 10.3 mg/dL [facility] PROTEIN, TOTAL 7.1 6.1 - 8.1 g/dL [facility] ALBUMIN 4.5 3.6 - 5.1 g/dL [facility] GLOBULIN 2.6 1.9 - 3.7 g/dL (calc) [facility] ALBUMIN/GLOBULI N RATIO 1.7 1.0 - 2.5 (calc) [facility] BILIRUBIN, TOTAL 0.6 0.2 - 1.2 mg/dL [facility] ALKALINE PHOSPHATASE 61 35 - 144 U/L [facility] AST 18 10 - 35 U/L [facility] ALT 19 9 - 46 U/L [facility] Blood Blood / Unknown 11/30/2023 4 :43 PM EDT 11/30/2023 4:44 PM EDT Hanny Thompson PA-C LAB - BLOOD DRAW Edited Resu lt - Final [facility] [address] [address], [facility] [address] [address] * COLONOSCOPY (06/14/2020 4:25 PM EST) Impressions Hanny Thompson PA-C - 06/14/2020 4:25 PM EST Result type: Phone Msg Result date: June 14, 2020 14:26 EST Result status: Modified Result title: Biopsy results Performed by: Jani Witt MD on June 14, 2020 14:26 EST Encounter info: [id number], [facility], Triage, 06/14/2020 - 07/14/2020 * Final Report * Document Contains Addenda Addendum by Shavonne Sierra MA on June 14, 2020 14:37:19 EST (Verified) I called and spoke with patient at [phone] patient is aware of results and plan below. Pt reminder created in Cb for repeat colonoscopy in 7y. All set From: Miryam CORRALES, Jani To: Shavonne Sierra MA; Cc: Hanny Medellin; Sent: 06/14/2020 14:26:29 EST Subject: Biopsy results Actions: Please Call Patient with Results One Tubular adenoma, Two small Hyerplastic Polyps Repeat colonoscopy in 7 years based on current guidelines. Please let patient know. Please set reminder. Thank you Dr Witt [facility]. 2019;158(4):1154. doi: 10.1053 PMID: [id number]. Results: Date Result Type Result Name 06/04/2020 8:35 Document - DOC Surgical Pathology Final Diagnosis: 1. Colon, transverse, polyp, polypectomy: - Tubular adenoma. 2. Colon, descending, polyps, polypectomy (x2): - Hyperplastic polyp(s). us Provider [facility] PROCEDURES Final Result * HIV-1 & HIV-2 ANTIBODIES (01/31/2020 4:05 PM EDT) HIV 1 AND 2 ANTIBODY SCREEN NEGATIVE NEGATIVE [facility] Comment: This assay is a 4th generation assay allowing for earlier detection of HIV infection by detecting the presence of the HIV-1 p24 antigen as well as the traditional antibodies to HIV type 1 (including group O) and type 2. Use of a 4th generation assay is the current CDC recommendation for HIV screening. Blood specimen (specimen) Blood / Unknown 01/31/2020 4:05 PM EDT 01/31/2020 4:37 PM EDT Narrative [facility] - 01/31/2020 7:21 PM EDT [employer], [place] [address] Security Clerk - Mary Pozo MD PT ID [id number] ORD# [id number] Hanny Thompson PA-C LAB - BLOOD DRAW Final Resul t [facility] [address] [place] [address], from Last 3 Months or Most Recently Relevant to Health Maintenance Insurance [facility] Care Teams Box Machine Operator Relationship Specialty Start Date End Date Hanny Thompson PA-C [address] [place] [phone] PCP - General Internal Medicine 05/16/13
--- OUTSIDE RECORDS SUMMARY | 2024-12-04 16:21 | XMS_ITS | Clinical Summary ---
Author Organization [facility] Address [address] [facility] [address] [place] [address] Phone Care Team Providers Care Airfield Defence Guard Name Role Phone Inga Mcdaniel GILBERTO Primary Care Provider [phone] Allergies Active Allergy Reactions Criticality Noted Date [...] September 08, 2019 12:44 EDT Encounter info: [id number], [facility], Disch ES, 09/08/2019 - 09/08/2019 * [...] Morales at the time of dictation WSN: [id number] Ordering Physician: Sandra Morales Signature Line Dictated By: Chas Freeman MD Dictated Date/Time: 09/08/19 12:44 p Reviewed By: Chas Freeman MD Signed By: Chas Freeman MD Signed Date/Time: 09/08/19 12:44 pm Transcribed By: GABE Transcribed Date/Time: 09/08/19 12:40 pm Chest Portable This document has an image COVID-19 09/11/2019 10/10/2020 Overview (07/11/2020): COVID-19 Tracking [reviewed or updated 09/11/2019] Exposure to confirmed case or travel risk - no Date that symptoms began - 09/08/19 Patient risk factors for severe COVID-19: Diabetes and Chronic Kidney Disease undergoing dialysis Healthcare worker or heel sprayer first? No COVID-19 Tested? - Yes - Date Tested 09/08/19 Testing Location - [facility] - Testing Results - Positive Is patient ? No Obesity 04/14/2018 10/10/2020 Dysfunctional voiding of urine 03/07/2017 10/10/2020 Allergic rhinitis due to pollen 09/25/2016 10/10/2020 Testosterone level below reference range 09/30/2015 10/10/2020 Erectile dysfunction 02/20/2014 021 Overview (07/11/2020): Last Assessment & Plan: Plan for IV Abx (Vanc, Zosyn x 24 hrs), Insulin SS, anti-HTN s , hold home anti-hyperglycemics. Hold ASA x 7 [...] 10/10/2020 Vitamin D deficiency 02/14/2013 021 Immunizations Immunization Administration Dates Next Due Influenza TIV (IM) [...] Visual Foot Exam 06/09/2022 Diabetes: Hemoglobin A1C 01/05/2025 025, 11/05/2022, 03/12/2022, Additional history exists Influenza Vaccine (#1) 2025 4, 02/16/2023, 03/02/2022, Additional history exists Pneumococcal Vaccine: 50+ Years Completed 03/17/2022 Pneumococcal Vaccine: Peds (0 to 5 Years) and At-Risk Patients (6 to 49 Years) Discontinued 03/17/2022 Hepatitis B Vaccine Aged Out No [...] mg/dl PVNMA 01/31/2020 us Rtama Conversion LAB [id number] LICITED RESULTS Final Result PVNMA from Last 3 Months or Most Recently Relevant to Health Maintenance Insurance Care Teams Airfield Defence Guard Relationship Specialty Start Date End Date Inga Mcdaniel FNP [address] [place], [place] PCP - General 05/27/20
[2024-12-04 17:44] LABS: Anion Gap 10 (12-20); Blood Urea Nitrogen 22 mg/dL (9-16); Carbon Dioxide 23 mmol/L (22-29); Chloride 111 mmol/L (96-108); Estimated Glomerular Filt Rate 44; Potassium 3.9 mmol/L (3.3-5.1); Sodium 140 mmol/L (135-145)
== END 2024-12-04 16:01 | disposition home or self-care (01) ==
LOC: HO.HKASLDS 16:00
PROVIDERS: Visit Provider Internal Medicine Nephrology
DX: I12.9 Hypertensive chronic kidney disease with stage 1 through stage 4 chronic kidney disease, or unspecified chronic kidney disease (principal); N18.31 Chronic kidney disease, stage 3a; R06.09 Other forms of dyspnea; N17.9 Acute kidney failure, unspecified
CPT/HCPCS: 36415; 80051; 82565; 84520

== ENCOUNTER 2024-12-12 15:38 | Outpatient (AMB) | payer OTHER, SELFPAY ==
--- NOTE | 2024-12-12 15:49 | HO.NEPHOV_ITS ---
Vital Signs 12/12/24 15:50 Height 5 ft 7 in Weight 203 lb 8 oz BMI 31.9 BP 142/84 H Blood Pressure Location Lt brachial Position Sitting Pulse 78 Pulse Source Pulse Oximeter Pulse Oximetry (%) 97 Oxygen Delivery Method Room Air Intake Visit Reasons: follow up-[facility] Corporate Human Resources Manager Required: No Accompanied by: Self / Same As Patient Allergies Peanut Butter Allergy (Verified 12/12/24 15:50) Unknown HPI Comments Details: Florian was seen in follow-up of his chronic kidney disease, hypertension on a backdrop of microscopic hematuria and proteinuria. His blood sugar is better. His blood pressure has been at goal. He does not take any nonsteroidal anti- inflammatories. He denies nausea, vomiting, diarrhea, chest pain, shortness of breath, paroxysmal nocturnal dyspnea, orthopnea or pedal edema. He does not have any orthostatic symptoms. He claims to be compliant with his medications. His serum creatinine is back to baseline. He has H/O SOBE & a cardiology referral is pending . All other systems have been reviewed and were negative. [facility] Medical History (Updated 10/31/24 @ 14:33 by John Loredo MD) Hypertension Chronic kidney disease, stage 3a Proteinuria Hematuria Family History Sister Hypertension Social History Alcohol intake: current Patient Tobacco Use Status: Former Tobacco user Review of Systems Const All systems reviewed & are unremarkable except as noted in HPI and below Physical Exam Vital Signs: Last Vital Signs Pulse 78 12/12/24 15:50 BP 142/84 H 12/12/24 15:50 Pulse Ox 97 12/12/24 15:50 Oxygen Delivery Method Room Air 12/12/24 15:50 BMI result Body Mass Index 31.9 Const General: comfortable and no acute distress Orientation/consciousness: patient oriented x3 HEENT Head: Yes normocephalic Mouth: Normal oral and palatal mucosa present Eyes EOM: EOMs intact bilaterally Neck Neck: Yes supple Resp Auscultation: clear to auscultation bilaterally Cardio Jugular venous distension: no JVD Rate: regular rate GI Palpation (GI): Soft to palpation Auscultation: normal bowel sounds General: Yes no CVA tenderness Back/Spine/Pelvis Back: no CVA tenderness Skin General skin exam: no rashes or lesions noted Neuro General: patient oriented x3 and moves all extremities Extrem General: Yes no pedal edema Results Reviewed Nephrology Results: Sodium, (135-145) 140 mmol/L 12/04/24 Potassium, (3.3-5.1) 3.9 mmol/L 12/04/24 Chloride, (96-108) 111 mmol/L H 12/04/24 Carbon Dioxide, (22-29) 23 mmol/L 12/04/24 BUN, (9-16) 22 mg/dL H 12/04/24 Creatinine, (0.5-1.4) 1.59 mg/dL H 12/04/24 Calcium, (8.4-10.2) 9.6 mg/dL 07/27/23 Urine Protein, (Neg-Trace) Trace mg/dL 10/27/24 Urine Creatinine 176.23 mg/dL 10/27/24 Protein/Creatinin Ratio, (<0.2) 0.09 10/27/24 Assessment & Plan Assessment & Plan (1) Chronic kidney disease, stage 3a: Code(s): N18.31 - Chronic kidney disease, stage 3a Category: Medical (2) Hypertension: Code(s): I10 - Essential (primary) hypertension Category: Medical Qualifiers: Hypertension type: primary hypertension Qualified Code(s): I10 - Essential (primary) hypertension Plan Florian has CKD stage 3 at baseline. He likely has IgA nephropathy. His serum creatinine is back to baseline after holding off his chlorthalidone. I may have to cut back on his ARB if his serum creatinine rises. He has history of microscopic hematuria. His proteinuria now is undetectable. His blood pressure has been at goal. He clearly needs to lose weight. I asked him to keep his blood sugar & blood pressure at goal. He is already taking fish oil. He had imaging studies and cystoscopy by Urology. He avoids nonsteroidal anti- inflammatories and maintain good hydration. He is on Farxiga 10 mg daily . His cardiology consult is pending. I answered all his questions. Follow-up lab work ordered and follow-up appointment given Orders: Orders Electrolytes 3 Months I10 - Essential (primary) hypertension, N18.31 - Chronic kidney disease, stage 3a Blood Urea Nitrogen 3 Months I10 - Essential (primary) hypertension, N18.31 - Chronic kidney disease, stage 3a Creatinine 3 Months I10 - Essential (primary) hypertension, N18.31 - Chronic kidney disease, stage 3a Coding Level of Care Code Est Pt Level 4 (01940) Diagnoses Chronic kidney disease, stage 3a N18.31 Primary hypertension I10 Hypertension type: primary hypertension
[2024-12-12 15:50] VITALS: BP 142/84; PULSE 78; O2SAT 97; BMI 31.9
--- OUTSIDE RECORDS SUMMARY | 2024-12-12 16:20 | XMS_ITS | Clinical Summary ---
Author Organization [facility] Address [address] [place] [address] Phone Care Team Providers Care Electric Distribution Engineer Name Role Phone Hanny Thompson Primary Care Provider [phone] Allergies No known active allergies Medications insulin glargine (LANTUS) 100 unit/mL injection Inject 40 Units under the skin at bedtime for 15 days. 10 mL 04/29/2024 Active Medical History Medical History Date Comments Uncontrolled type 2 diabetes mellitus with hyperglycemia ([facility] V24, [facility] V28) DX:Uncontrolled type 2 diabe ciara mellitus with hyperglycemia (HCC) Chronic kidney disease, stag e 3b ([facility] V24, [facility] V28) DX:Chronic kidney disease, stage 3b (HCC) [...] LAB CHEMISTRY METHOD 04/29/2024 6:05 PM EST [facility] eGFR 34(L) >=60 mL/min/1. 73m2 LAB CHEMISTRY METHOD 04/29/2024 6:05 PM EST [facility] Comment:Calculation based on the Chronic [...] MD LAB BLOOD ORDERABLES Della l Result [facility] [address] [place] [address], from Last 3 Months or Most Recently Relevant to Health Maintenance Insurance [facility] Care Teams Electric Distribution Engineer Relationship Specialty Start Date End Date Hanny Thompson PA [address] [place] [address] PCP - General 09/11/22
--- OUTSIDE RECORDS SUMMARY | 2024-12-12 16:20 | XMS_ITS | Encounter Summary ---
Author Organization [facility] Address [address] [facility] [address] [place] [id number] Phone Care Team Providers Care Labor Relations Representative Name Role Phone Kwame Powell MD Primary Care Provider + Reason for Referral * MRI/CAT Scan - Closed Specialty Diagnoses / Procedures Referred By Contac t Referred To Contact Radiology Diagnoses Chest pain on exertion Procedures NC Myocardial Perfusion Exercise Multiple Leni Mendez MD Phone: tel: fax: [email or web address] Referral ID Status Reason Start Date Expiration Date Visits Re quested Visits Authorized [id number] Closed 12/16/2018 01/14/2019 1 1 Encounter Details Date Type Department Care Team (Latest Contact Info) Description 12/06/2018 Transcribe [facility] [address] [place] [address] [address] Floor, [address] [place] [address] Leni Mendez MD [address] [place] [address] [email or web address] Chest pain on exertion (Primary Dx) Social [...] in SPECT format, reconstructed tomographically and compared [id number] in short axis, horizontal long axis and [...] pain documented in this encounter Care Teams Labor Relations Representative Relationship Specialty Start Date End Date Kwame Powell MD [address] [place] [address] PCP - General Hematology and Oncology 12/04/16 documented as of this encounter Additional Source Comments The information contained in this document represents components of the legal health record. It is not the complete legal health record.[facility]
--- OUTSIDE RECORDS SUMMARY | 2024-12-12 16:20 | XMS_ITS | Clinical Summary ---
Author Organization [facility] Address [address] [email or web address] [address] [place] [address] Phone Care Team Providers Care Electronics Assembler Name Role Phone Inga Mcdaniel GILBERTO Primary Care Provider [phone] Allergies Active Allergy Reactions Criticality Noted Date [...] September 08, 2019 12:44 EDT Encounter info: [id number], [facility], Disch ES, 09/08/2019 - 09/08/2019 * [...] Morales at the time of dictation WSN: [id number] Ordering Physician: Sandra Morales Signature Line Dictated [...] Kidney Disease undergoing dialysis Healthcare worker or runner man? No COVID-19 Tested? - Yes - Date Tested 09/08/19 Testing Location - [facility] - Testing Results - Positive Is patient [...] mg/dl PVNMA 01/31/2020 us Rtama Conversion LAB [id number] LICITED RESULTS Final Result PVNMA from Last 3 Months or Most Recently Relevant to Health Maintenance Insurance Care Teams Electronics Assembler Relationship Specialty Start Date End Date Inga Mcdaniel FNP [address] [place], [place] PCP - General 05/27/20
--- OUTSIDE RECORDS SUMMARY | 2024-12-12 16:20 | XMS_ITS | Clinical Summary ---
Author Organization [facility] Address [address] [place] [address] Care Team Providers Care Irs Agent Name Role Phone Hanny Thompson PA-C Primary Care Provider Source Comments PLEASE NOTE, if this patient [...] hyperglycemia, with long-term current use of insulin ([facility]) Take 1 Tablet by mouth every morning (Patient will use GoodRx or 340B, whichever one is cheaper) 90 Tablet 2 5 Active chlorthalidone (HYGROTEN) 25 mg tabletIndication s:Hypertension, essential, benign Take 1 Tablet by mouth once daily 90 Tablet 4 5 Active atorvastatin (LIPITOR) 40 mg tabletIndication s:Type 2 diabetes mellitus without complication, without long-term current use of insulin ([facility]) Take 1 Tablet by mouth nightly at [...] hyperglycemia, with long-term current use of insulin ([facility]) 07/30/2022 Overview (10/08/2024): DM dx: ~[phone] per patient reports Glucometer: Qwite True Metrix Dexcom G7 sensors ($390) Current [...] painful heel spurs. He was seen by executive assistant to president, he is deferring treatment. Maceration between 3 [...] October 06, 2019 11:51 EDT Encounter info: [id number], [facility], One Time OP, 10/06/2019 - 10/06/2019 * [...] consolidation. Hepatic steatosis. Bilateral adrenal adenomas. A [facility] message has been communicated via the [employer] system on 10/06/2019 11:51 AM, Message ID [id number]. WSN: [id number] Ordering Physician: Hanny Thompson Signature Line Dictated [...] September 08, 2019 12:44 EDT Encounter info: [id number], [facility], 09/08/2019 - 09/08/2019 * Final [...] Morales at the time of dictation WSN: [id number] Ordering Physician: Sandra Morales Signature Line Dictated By: Chas Freeman MD Dictated Date/Time: 09/08/19 12:44 p Reviewed By: Chas Freeman MD Signed By: Chas Freeman MD Signed Date/Time: 09/08/19 12:44 pm Transcribed By: CSDevante Transcribed Date/Time: 09/08/19 12:40 pm Chest Portable This document has an image Stage 3b chronic kidney disease ([facility]) 06/02/2019 Overview (07/28/2024): 06/20/24 [facility] [place]III, likely has IgA nephropathy, Scr stable Hx of microscopic hematuria, proteinuria undetectable, BP at goal, lose weight On MYLA-inhibitor, avoid NSAID, wanted to start on Jardiance, but not covered 02/17/24 at [facility] No medication changes, same as below 10/21/23 at [facility] CKD stage 3, likely has IgA nephropathy. [...] Kidney Disease undergoing dialysis Healthcare worker or wrister? No COVID-19 Tested? - Yes - Date Tested 09/08/19 Testing Location - [facility] - Testing Results - Positive Is patient ? No Uncontrolled type 2 diabetes mellitus with hyperglycemia ([facility]) 02/14/2013 02/01/2024 Encounters Date Type Department Care Team Description 10/08/2024 Results Follow-Up [address] [phone] Aroldo Latham PharmD 10/05/2024 11:00 AM EDT Office Visit [address] [phone] Aroldo Latham PharmD from Last 3 Months [...] Recombinant (2 of 2) 09/08/2022 07/14/19 23 [id number] ( season) 2024 01/02/2022, 04/28/2021, 09/16/2020, Additional [...] hyperglycemia, without long-term current use of insulin ([facility]) MICROALBUMIN/CREATININ E RATIO, URINE, RANDOM Routine 10/05/2024 11:43 AM EDT Type 2 diabetes mellitus with hyperglycemia, without long-term current use of insulin ([facility]) GLUCOSE, BLOOD BY GLUCOSE MONITORING DEVICE (CLIA WAIVED)POCT Routine 10/05/2024 11:31 AM EDT Type 2 diabetes mellitus with hyperglycemia, with long-term current use of insulin ([facility]) COMPREHENSIVE METABOLIC PANEL Routine 11/30/2023 4:43 PM EDT Routine general medical examination at a health care facility Hyperlipidemia, mixed Hypertension, essential, benign Non morbid obesity Pulmonary nodule- right posterior rib 1.5 cm 09/08/2019 CXR Type 2 diabetes mellitus with hyperglycemia, with long-term current use of insulin ([facility]) Stage 3b chronic kidney disease (HCC-CMS) RIBEIRO [...] hyperglycemia, with long-term current use of insulin ([facility]) Stage 3b chronic kidney disease (HCC-CMS) RIBEIRO [...] hyperglycemia, with long-term current use of insulin ([facility]) Stage 3b chronic kidney disease (HCC-CMS) RIBEIRO (dyspnea on exertion) Malaise and fatigue Lower urinary tract symptoms (LUTS) Prostate cancer screening COLONOSCOPY Routine 06/14/2020 4:25 PM EST Prostate cancer screening ANTIBODY HIV-1&HIV-2 SINGLE RESULT Routine 01/31/2020 4:05 PM EDT Type 2 diabetes mellitus without complication, without long-term current use of insulin ([facility]) Stage 3 chronic kidney disease ([facility]) Non morbid obesity Hypertension, essential, benign Hyperlipidemia, mixed from Last 3 Months or Most Recently Relevant to Health Maintenance Results * REFERRAL SCANNED DOCUMENT (10/31/2024 3:00 AM EDT) 10/31/2024 3:00 AM EDT Hanny Thompson PA-C SCAN REFERRAL Final Result * (ABNORMAL) MICROALBUMIN/CREATININE RATIO, URINE, RANDOM Urine Routine (10/05/2024 11:43 AM EDT) Pathologist [facility] CREATININE, RANDOM URINE 152 20 - 320 mg/dL [facility] MICROALBUMIN 17.9 mg/dL [facility] Comment: Reference Range Not established MICROALBUMIN/CREA TININE RATIO, RANDOM URINE 118(H) <30 mg/g creat [facility] Comment: The ADA defines abnormalities [...] 11:43 AM EDT 10/05/2024 11:43 AM EDT [employer] [facility] PharmD LAB URINE AMBULATORY Della l Result Performing Organization Address [facility]/ZIP Co de Phone Number [facility] [address] [address], [facility] [address] [address] * VITAMIN B12 & FOLATE Routine (10/05/2024 11:43 AM EDT) Pathologist [facility] VITAMIN B12 483 200 - 1,100 pg/mL [facility] FOLATE, SERUM 19.2 5.5 ng/mL [employer] Comment: Reference Range Low: <3.4 Borderline: 3.4-5.4 Normal: >5.4 Blood Blood / Unknown 10/05/2024 1 1:43 AM EDT 10/05/2024 11:43 AM EDT [employer]ouglas Hdezis PharmD LAB - BLOOD DRAW Edited R esult - Final Performing Organization Address [facility] de Phone Number [facility] [address] [address], [facility] [address] [address] * (ABNORMAL) HEMOGLOBIN GLYCOSYLATED A1C Routine (10/05/2024 11:43 AM EDT) Pathologist [facility] HEMOGLOBIN A1C 7.9(H) <5.7 % [facility] Comment: For someone without known [...] R esult - Final Performing Organization Address [facility]/ZIP Co de Phone Number [facility] [address] [address], [facility] [address] [address] * (ABNORMAL) GLUCOSE, BLOOD BY GLUCOSE MONITORING DEVICE (CLIA WAIVED)POCT Routine (10/05/2024 11:31 AM EDT) Pathologist [facility] GLUCOSE 187(A) 70 - 100 mg/dL [facility] OFFICE POCT Capillary Blood Blood / Unknown 11:31 AM EDT Aroldo Hdezis PharmD LAB - BLOOD DRAW Final Re sult Performing Organization Address [facility] de Phone Number [facility] POCT * HEPATITIS C AB W/RFLX HCV RNA, QT, RT PCR (11/30/2023 4:43 PM EDT) [facility] HEPATITIS C ANTIBODY NON-REACT BENJAMIN NON-REACT BENJAMIN [facility] Comment: HCV antibody was non-reactive. There is no laboratory evidence of HCV infection. In most cases, no further action is required. However, if recent HCV exposure is suspected, a test for HCV RNA (test code 06647) is suggested. For additional information please refer to http://education.Factyle/faq/JAF41t2 (This link is being provided for informational/ educational purposes only.) Blood Blood / Unknown 11/30/2023 4 :43 PM EDT 11/30/2023 4:44 PM EDT Hanny Thompson PA-C LAB - BLOOD DRAW Edited Resu lt - Final Performing Organization Address [facility] Co de Phone Number [facility] [address] [address], [facility] [address] [address] * (ABNORMAL) LIPID PANEL (11/30/2023 4:43 PM EDT) Pathologist [facility] CHOLESTEROL, TOTAL 164 <200 mg/dL [facility] HDL CHOLESTEROL 62 > OR = 40 mg/dL [facility] TRIGLYCERIDES 211(H) <150 mg/dL [facility] Comment: If a non-fasting specimen was collected, consider repeat triglyceride testing on a fasting specimen if clinically indicated. Lynne et al. J. of Clin. Lipidol. 2015;9:129-169. LDL-CHOLESTEROL 71 99 mg/dL (calc) [facility] Comment: Reference range: <100 Desirable range <100 mg/dL for primary prevention; <70 mg/dL for patients with CHD or diabetic patients with > or = 2 CHD risk factors. LDL-C is now calculated using the Lam calculation, which is a validated novel method providing better accuracy than the Friedewald equation in the estimation of LDL-C. Bryant SS et al. CELESTINE. 2013;310(19): 9494-6530 (http://education.HelloSign/faq/BHO617) CHOL/HDLC RATIO 2.6 <5.0 (calc) [facility] NON-HDL CHOLESTEROL 102 <130 mg/dL (calc) [facility] Comment: For patients with diabetes plus 1 major ASCVD risk factor, treating to a non-HDL-C goal of <100 mg/dL (LDL-C of <70 mg/dL) is considered a therapeutic option. Blood Blood / Unknown 11/30/2023 4 :43 PM EDT 11/30/2023 4:44 PM EDT us Hanny Thompson PA-C LAB - BLOOD DRAW Final Resul t [facility] [address] [address], [facility] [employer] [address] [address] * (ABNORMAL) COMPREHENSIVE METABOLIC PANEL (11/30/2023 4:43 PM EDT) [facility] GLUCOSE 92 65 - 99 mg/dL [facility] Comment: Fasting reference interval UREA NITROGEN (BUN) 34(H) 7 - 25 mg/dL [facility] CREATININE (blood) 1.98(H) 0.70 - 1.35 mg/dL [facility] EGFR 37(L) > OR = 60 mL/min/1. 73m2 [facility] BUN/CREATININE RATIO 17 6 - 22 (calc) [facility] SODIUM 138 135 - 146 mmol/L [facility] POTASSIUM 3.9 3.5 - 5.3 mmol/L [facility] CHLORIDE 105 98 - 110 mmol/L [facility] CARBON DIOXIDE 22 20 - 32 mmol/L [facility] CALCIUM 9.8 8.6 - 10.3 mg/dL [facility] PROTEIN, TOTAL 7.1 6.1 - 8.1 g/dL [facility] ALBUMIN 4.5 3.6 - 5.1 g/dL [facility] GLOBULIN 2.6 1.9 - 3.7 g/dL (calc) [facility] ALBUMIN/GLOBULI N RATIO 1.7 1.0 - 2.5 (calc) [facility] BILIRUBIN, TOTAL 0.6 0.2 - 1.2 mg/dL [facility] ALKALINE PHOSPHATASE 61 35 - 144 U/L [facility] AST 18 10 - 35 U/L [facility] ALT 19 9 - 46 U/L [facility] Blood Blood / Unknown 11/30/2023 4 :43 PM EDT 11/30/2023 4:44 PM EDT Hanny Thompson PA-C LAB - BLOOD DRAW Edited Resu lt - Final [facility] [address] [address], [facility] [employer] [address] [address] * COLONOSCOPY (06/14/2020 4:25 PM EST) Impressions Hanny Thompson PA-C - 06/14/2020 4:25 PM EST Result type: Phone Msg Result date: June 14, 2020 14:26 EST Result status: Modified Result title: Biopsy results Performed by: Jani Witt MD on June 14, 2020 14:26 EST Encounter info: [id number], [facility], Triage, 06/14/2020 - 07/14/2020 * Final Report * Document Contains Addenda Addendum by Shavonne Sierra MA on June 14, 2020 14:37:19 EST (Verified) I called and spoke with patient at [phone] patient is aware of results and plan [...] Dr Witt Gastroenter[facility]. 2019;158(4):1154. doi: 10.1053 PMID: [id number]. Results: Date Result Type Result Name 06/04/2020 8:35 Document - DOC Surgical Pathology Final Diagnosis: 1. Colon, transverse, polyp, polypectomy: - Tubular adenoma. 2. Colon, descending, polyps, polypectomy (x2): - Hyperplastic polyp(s). us Provider [facility] PROCEDURES Final Result * HIV-1 & HIV-2 ANTIBODIES (01/31/2020 4:05 PM EDT) HIV 1 AND 2 ANTIBODY SCREEN NEGATIVE NEGATIVE [facility] Comment: This assay is a 4th generation [...] PM EDT 01/31/2020 4:37 PM EDT Narrative [facility] - 01/31/2020 7:21 PM EDT [employer], [place] [address] Learning Solutions Specialist - Mary Pozo MD PT ID [id number] ORD# [id number] Hanny Thompson PA-C LAB - BLOOD DRAW Final Resul t [facility] [address] [place] [address], from Last 3 Months or Most Recently Relevant to Health Maintenance Insurance [facility] Care Teams Irs Agent Relationship Specialty Start Date End Date Hanny Thompson PA-C [address] [place] [phone] PCP - General Internal Medicine 05/16/13
== END 2024-12-12 16:24 | disposition home or self-care (01) ==
LOC: HO.HKAS 15:38
PROVIDERS: PCP Physician Assistant; Visit Provider Internal Medicine Nephrology
DX: N18.31 Chronic kidney disease, stage 3a (principal); I10 Essential (primary) hypertension
CPT/HCPCS: 99214

== ENCOUNTER 2025-03-08 14:21 | Outpatient (REF) | payer OTHER, SELFPAY ==
[2025-03-08 18:14] LABS: Anion Gap 13 (12-20); Blood Urea Nitrogen 21 mg/dL (9-16); Carbon Dioxide 22 mmol/L (22-29); Chloride 111 mmol/L (96-108); Estimated Glomerular Filt Rate 50; Potassium 3.6 mmol/L (3.3-5.1); Sodium 142 mmol/L (135-145)
--- OUTSIDE RECORDS SUMMARY | 2025-03-08 18:14 | XMS_ITS | Encounter Summary ---
Author Organization [facility] Address [address] [place] [address] Phone Care Team Providers Care Milk Tester Name Role Phone Kwame Powell MD Primary Care Provider + Reason for Referral * MRI/CAT Scan - Closed Specialty Diagnoses / Procedures Referred By Contac t Referred To Contact Radiology Diagnoses Chest pain on exertion Procedures NC Myocardial Perfusion Exercise Multiple Leni Mendez MD Phone: tel: fax: [email or web address] Referral ID Status Reason Start Date Expiration Date Visits Re quested Visits Authorized [id number] Closed 12/16/2018 01/14/2019 1 1 Encounter Details Date Type Department Care Team (Latest Contact Info) Description 12/06/2018 Transcribe [facility] [address] [place] [address] 3rd Floor, [address] [place] [address] Leni Mendez MD [address] [place] [address] [email or web address] Chest pain on exertion (Primary Dx) Social [...] in SPECT format, reconstructed tomographically and compared [id number] in short axis, horizontal long axis and [...] pain documented in this encounter Care Teams Milk Tester Relationship Specialty Start Date End Date Kwame Powell MD [address] [place] [address] PCP - General Hematology and Oncology 12/04/16 documented as of this encounter Additional Source Comments The information contained in this document represents components of the legal health record. It is not the complete legal health record.[facility]
--- OUTSIDE RECORDS SUMMARY | 2025-03-08 18:14 | XMS_ITS | Clinical Summary ---
Author Organization [facility] Address [address] [place] [address] Phone Care Team Providers Care Telecom Billing Analyst Name Role Phone Hanny Thompson Primary Care Provider [phone] Allergies No known active allergies Medications insulin glargine (LANTUS) 100 unit/mL injection Inject 40 Units under the skin at bedtime for 15 days. 10 mL 04/29/2024 Active Medical History Medical History Date Comments Uncontrolled type 2 diabetes mellitus with hyperglycemia ([facility] V24, [facility] V28) DX:Uncontrolled type 2 diabe ciara mellitus with hyperglycemia (HCC) Chronic kidney disease, stag e 3b ([facility] V24, [facility] V28) DX:Chronic kidney disease, stage 3b (HCC) [...] Date Last Done Comments Colorectal Cancer Screening: Colonoscopy 1959 Diabetes: Annual Foot Exam 11/14/1969 Diabetes: Annual Retina Eye Exam 11/14/1969 DTaP,Tdap,and Td Vaccines (1 - Tdap) 11/14/1978 RSV Immunization Adult Patients (1 - Risk 50-74 years 1-dose series) 11/14/2009 Abdominal Aortic Aneurysm (AAA) Screen 04/19/2022 Social Influencers of Health Screening 04/19/2022 Zoster Vaccines (2 of 2) 09/08/2022 07/14/2022 Diabetes: Annual Urine Albumin-Creatinine Ratio (uACR) 04/29/2024 07/14/2022, 01/31/2020, 10/21/2018, Additional history exists Depression Screening 05/17/2024 Diabetes: Blood Sugar Control Test (HGBA1C) 06/01/2024 11/30/2023 COVID-19 Vaccine ( season) 2025 01/02/2022, 04/28/2021, 09/16/2020, Additional history exists Influenza Vaccine (#1) 2025 , 02/16/2023, 03/02/2022, [...] mmol/L LAB CHEMISTRY METHOD 04/29/2024 6:[address] [facility] Potassium 4.4 3.5 - 5.5 mmol/L LAB CHEMISTRY METHOD 04/29/2024 6:[address] [facility] Chloride 105 96 - 110 mmol/L LAB CHEMISTRY METHOD 04/29/2024 6:[address] [facility] CO2 21 21 - 32 mmol/L LAB CHEMISTRY METHOD 04/29/2024 6:[address] [facility] Anion Gap 10 3 - 11 LAB CHEMISTRY METHOD 04/29/2024 6:[address] [facility] Glucose 729(HH) 70 - 100 mg/dL LAB CHEMISTRY METHOD 04/29/2024 6:[address] [facility] BUN 29(H) 5 - 25 mg/dL LAB CHEMISTRY METHOD 04/29/2024 6:[address] [facility] Creatinine 2.15(H) 0.70 - 1.30 mg/dL LAB CHEMISTRY METHOD 04/29/2024 6:05 PM EST [facility] eGFR 34(L) >=60 mL/min/1. 73m2 LAB CHEMISTRY METHOD 04/29/2024 6:05 PM EST [facility] Comment:Calculation based on the Chronic Kidney Disease Epidemiology Collaboration (CKD-EPI) equation refit without adjustment for race. BUN/Creatinine Ratio 13.5 LAB CHEMISTRY METHOD 04/29/2024 6:[address] [facility] Calcium 9.3 8.5 - 10.5 mg/dL LAB CHEMISTRY METHOD 04/29/2024 6:[address] [facility] Blood Venous blood specimen / Unknown Venipuncture / Unknown 04/29/2024 5:13 PM EST 04/29/2024 5:32 PM EST Jemal Long MD LAB BLOOD ORDERABLES Della l Result [facility] [address] [place] [address], from Last 3 Months or Most Recently Relevant to Health Maintenance Insurance [facility] Care Teams Telecom Billing Analyst Relationship Specialty Start Date End Date Hanny Thompson PA [address] [place] [address] PCP - General 09/11/22
--- OUTSIDE RECORDS SUMMARY | 2025-03-08 18:15 | XMS_ITS | Encounter Summary ---
Author Organization [facility] Address [address] [place] [address] Care Team Providers Care Goodwill Ambassador Name Role Phone Hanny Thompson PA-C Primary Care Provider + [phone] Encounter Details Date Type Department Care Team ([facility] st Contact Info) Description 02/01/2025 Results Follow-Up [facility] [address] [place] [address] Aroldo Latham, SouravD [address] [place] [address] Social History Tobacco Use Types Packs/Day Years Used Date Smoking Tobacco: Never Smokeless Tobacco: Never Alcohol Use Standard Drinks/Week Comments No 0 [...] PM PDT documented as of this encounter Plan of Treatment Upcoming Encounters Date Type Department Care Team (Late st Contact Info) Description 03/14/2025 9:00 AM EDT Office Visit Count Includes [facility] [address] [place] [address] Hanny Thompson PA-C [address] [place] [address] 03/21/2025 4:20 PM EST Office Visit Count Includes [facility] [address] [place] [phone] Aroldo Latham, SouravD [address] [place] [address] documented as of this encounter Goals Goal Patient Goal Type Associated Problems Recent Progress Patient-Stated? Author Blood Pressure < 130/80 Blood Pressure Essential hypertension 138/80(2024 4:00 PM EDT) No Chanell Pizarro, PharmD documented as of this encounter Visit Diagnoses Not on filedocumented in this encounter Additional Health Concerns Assessment Noted Time PHQ-9 Depression Total Score: 0 11/30/19 24 4:23 PM PDT documented as of this encounter Care Teams Goodwill Ambassador Relationship Specialty Start Date End Date Hanny Thompson PA-C [address] [place] [phone] PCP - General Internal Medicine 05/16/13 documented as of this encounter
--- OUTSIDE RECORDS SUMMARY | 2025-03-08 18:15 | XMS_ITS | Encounter Summary ---
Author Organization [facility] Address [address] [place] [address] Phone Care Team Providers Care Operating Room Technician Name Role Phone Kwame Powell MD Primary Care Provider + Encounter Details Date Type Department Care Team (Late st Contact Info) Description 01/26/[address] [facility] Periop [address] [place] [address] Social History Tobacco Use Types Packs/Day Years [...] on file documented as of this encounter Visit Diagnoses Not on filedocumented in this encounter Care Teams Operating Room Technician Relationship Specialty Start Date End Date Kwame Powell MD [address] [place] [address] PCP - General Hematology and Oncology 12/04/16 documented as of this encounter Additional Source Comments The information contained in this document represents components of the legal health record. It is not the complete legal health record.[facility]
--- OUTSIDE RECORDS SUMMARY | 2025-03-08 18:15 | XMS_ITS | Clinical Summary ---
Author Organization [facility] Address [address] [place] [id number] Phone Care Team Providers Care Conservation Of Resources Commissioner Name Role Phone Kwame Powell MD Primary Care Provider + Allergies Active Allergy Reactions Criticality Noted Date Comments Peanut Cough 12/11/2016 Medications metFORMIN (GLUCOPHAGE) 850 MG tablet Take 850 mg by mouth daily before lunch. Active amLODIPine (NORVASC) 10 MG tablet Take 10 mg by mouth daily. Active lisinopril (PRINIVIL,ZESTR IL) 20 MG tablet Take 20 mg by mouth daily. Active simvastatin (ZOCOR) 20 MG tablet Take 20 mg by mouth nightly. Active docusate sodium (COLACE) 100 MG capsule Take 1 capsule (100 mg total) by mouth 2 (two) times a day. 30 capsule 7 Active Additional Information Patient not taking.Reported on 03/05/2017 oxyCODONE 5 MG immediate release tablet Take 1 tablet (5 mg total) by mouth every 4 (four) hours as needed for moderate pain. Pt. may request partial fill 15 tablet 7 Active Additional Information Patient not taking.Reported on 03/05/2017 sulfamethoxazol e-trimethoprim (BACTRIM DS) 800-160 mg per tablet Take 1 tablet (160 mg of trimethoprim total) by mouth 2 (two) times a day. 14 tablet 7 Active Additional Information Patient not taking.Reported on 03/05/2017 aspirin 81 MG EC tablet Take 1 tablet (81 mg total) by mouth daily. HOLD ASPIRIN UNTIL 02/02/17. 7 Active simvastatin (ZOCOR) 20 MG tablet Take 1 tablet (20 mg total) by mouth nightly. 7 Active tamsulosin (FLOMAX) 0.4 mg Cp24 Take 1 capsule (0.4 mg total) by mouth daily. 30 capsule 11 7 Active Active Problems Problem Noted Date Diagnosed Date Voiding dysfunction 03/07/2017 Status post urological surgery 01/26/2017 ED (erectile dysfunction) 12/11/2016 Assessment & Plan (01/26/2017 5:25 PM EDT): Plan for IV Abx (Vanc, Zosyn x 24 hrs), Insulin SS, anti-HTN s , hold home anti-hyperglycemics. Hold ASA x 7 more days. DC Mummy wrap on AM rounds, DC Mcgee catheter for void trial in AM. Home with pain meds, Bactrim in chart Family History Relation Status Comments Father Alive Mother Alive Social History Tobacco Use Types Packs/Day Years Used Date Smoking Tobacco: Former Smokeless Tobacco: Never Alcohol Use Standard Drinks/Week Comments Yes 0 (1 standard drink = 0.6 oz pur e alcohol) few times a months Education Answer Date Recorded Are you interested in more education? Not on bon e 09/11/2022 Are you concerned about learning? Not on file 09/11/2022 No 09/11/2022 No 09/11/2022 Digital Access Answer Date Recorded No 10/12/2022 No 10/12/2022 No 10/12/2022 Reliable internet access at home? Not on file 10/12/2022 Device with a working camera? Not on file Sex and Gender Information Value Date Recorded Sex Assigned at Not on file Legal Sex Male 11:35 AM EDT Gender Identity Not on file Sexual Orientation Not on file Last Filed Vital Signs Vital Sign Reading Time Taken Comments Blood Pressure 160/86 12/23/2018 10:08 AM EDT Pulse 97 06/21/2017 3:52 PM EST Temperature 36.6 C (97.9 F) 03/05/2017 9:05 AM EDT oral Respiratory Rate 18 01/27/2017 12:06 PM EDT Oxygen Saturation 97% 12/23/2018 9:00 AM EDT room air Inhaled Oxygen Concentration - - Weight 86 kg (189 lb 9.5 oz) 06/21/2017 3:52 PM EST Height 167.6 cm (5' 6 ) 03/05/2017 9:05 AM EDT Body Mass Index 30.6 03/05/2017 9:05 AM EDT Plan of Treatment Health Maintenance Due Date Last Done Comments Adult Td,Tdap Booster 1959 CREATININE LEVEL 1959 POTASSIUM LEVEL 1959 DEPRESSION SCREENING 1971 SMOKING Hx and SMOKELESS TOBACCO SCREENING 11/14/1972 HEPATITIS C SCREENING 11/14/1977 HIV ONE-TIME SCREENING (18-65 YEARS) 11/14/1977 COLOGUARD 11/14/2004 COLONOSCOPY 11/14/2004 COLORECTAL CANCER SCREENING 11/14/2004 FIT TEST 11/14/2004 FOBT 11/14/2004 SIGMOIDOSCOPY 11/14/2004 VIRTUAL COLONOSCOPY 11/14/2004 PNEUMOCOCCAL VACCINES (50+ years) (1 of 1 - PCV) 11/14/2009 ZOSTER VACCINES (1 of 2) 11/14/2009 LIPID PANEL 10/22/2023 10/21/2018 ABDOMINAL AORTIC ANEURYSM (AAA) SCREENING 11/14/2024 INFLUENZA VACCINE (#1) 2024 0, 01/30/2019, 02/26/2018, Additional history exists COVID-19 VACCINE ( season) 2025 09/16/2020, 08/17/2020 RSV VACCINE (1 - 1-dose 75+ series) 11/14/2034 HEPATITIS A VACCINES Aged Out No long er eligible based on patient's age to complete this topic HIB VACCINES Aged Out No longer eligi ble based on patient's age to complete this topic MENINGOCOCCAL VACCINES (ACWY) Aged Out No longer eligible based on patient's age to complete this topic MENINGOCOCCAL VACCINES (B) Aged Out N o longer eligible based on patient's age to complete this topic Medical Devices Implanted Type Area Insurance Marketing Rep Device Identifier Shelf Expiration Date Model / Serial / Lot Kit Accessory Penile 30cm Prosthesis Connector Blunt Needle Curved Ej Needle Tubing - [id number] Implanted:Qty: 1 on 01/26/2017 by Bryant Armando MD at [facility] [employer] 12/31/2021 [id number] / / [id number] Pump Penile 65ml Malleable Minocycline Rifampin Inhibizone Parylene 700 Ms - [id number] Implanted:Qty: 1 on 01/26/2017 by Bryant Armando MD at [facility] [employer] 09/10/2018 [id number] / / [id number] Implant Penile [id number] Inflatable Minocycline Rifampin Inhibizone Parylene 700 Ms - [id number] Implanted:Qty: 1 on 01/26/2017 by Bryant Armando MD at [facility] N/A: Penis [employer] 11/28/2018 [id number] / / [id number] Implant Penile [employer] Lead Rear Tip 4.0cm - Discontinued Per Contracts - [id number] Implanted:Qty: 1 on 01/26/2017 by Bryant Armando MD at [facility] N/A: Penis [employer] 06/10/2021 [id number] / / [id number] Insurance OUT OF [facility] PPO OUT OF [facility] PPO BLUE CROSS OUT OF STATE PPO [employer]UE [place]OSS OUT OF STATE PPO BLUE [place]OSS OUT OF STATE PPO [employer]UE [place] OUT OF STATE PPO [place] OUT OF STATE PPO BLUE [place]OSS OUT OF STATE PPO [facility] OUT OF STATE PPO Advance Directives For more information, please contact: [phone] (9AM - 5PM [facility], Wednesday-Wednesday) Documents on File Type Date Recorded Patient Senior Network Engineer Expl anation Healthcare Proxy 01/30/2017 8:35 AM Signed On 01/26/2017 * Full Code (Presumed) (Latest Code Status on File) Date Activated Date Inactivated Comments 01/26/2017 7:45 PM 01/27/2017 7:46 PM Care Teams Conservation Of Resources Commissioner Relationship Specialty Start Date End Date Kwame Powell MD [address] [place] [address] PCP - General Hematology and Oncology 12/04/16 Additional Source Comments The information contained in this document represents components of the legal health record. It is not the complete legal health record.[facility]
--- OUTSIDE RECORDS SUMMARY | 2025-03-08 18:15 | XMS_ITS | Clinical Summary ---
Author Organization [facility] Address [address] [facility] [address] [place] [address] Phone Care Team Providers Care Supply Chain Director Name Role Phone Inga Mcdaniel GILBERTO Primary Care Provider [phone] Allergies Active Allergy Reactions Criticality Noted Date [...] September 08, 2019 12:44 EDT Encounter info: [id number], [facility], Disch ES, 09/08/2019 - 09/08/2019 * [...] Morales at the time of dictation WSN: [id number] Ordering Physician: Sandra Morales Signature Line Dictated [...] Kidney Disease undergoing dialysis Healthcare worker or welder first class? No COVID-19 Tested? - Yes - Date Tested 09/08/19 Testing Location - [facility] - Testing Results - Positive Is [...] mg/dl PVNMA 01/31/2020 us [facility] [id number] LICITED RESULTS Final Result PVNMA from Last 3 Months or Most Recently Relevant to Health Maintenance Insurance Care Teams Supply Chain Director Relationship Specialty Start Date End Date Inga Mcdaniel FNP [address] [place], [place] PCP - General 05/27/20
--- OUTSIDE RECORDS SUMMARY | 2025-03-08 18:15 | XMS_ITS | Clinical Summary ---
Author Organization [facility] Address [address] [place] [address] Care Team Providers Care Cnc Mill Programmer Name Role Phone Hanny Thompson PA-C Primary Care Provider [phone] Source Comments PLEASE NOTE, if this patient [...] 2 Sprays in both nostrils 5 Active tamsulosin (FLOMAX) 0.4 mg 24 hr capsuleIndicati ons:Benign prostatic hyperplasia with urinary frequency TAKE 2 CAPSULES BY MOUTH EVERY DAY 180 Capsule 4 5 Active amlodipine-vals german (EXFORGE) 10-160 mg per tabletIndicatio ns:Type 2 diabetes mellitus with hyperglycemia, with long-term current use of insulin,Essenti al hypertension,St age 3b chronic kidney disease Take 1 Tablet by mouth every morning For blood pressure.. 90 Tablet 3 5 Active [address] tabletIndicatio ns:Type 2 diabetes mellitus with hyperglycemia, with long-term current use of insulin,Hyperli pidemia LDL goal <70 Take 1 Tablet by mouth every morning. 90 Tablet 3 5 Active atorvastatin (LIPITOR) 40 mg tabletIndicatio ns:Type 2 diabetes mellitus with hyperglycemia, with long-term current use of insulin,Hyperli pidemia LDL goal <70 Take 1 Tablet by mouth nightly at bedtime For cholesterol. 90 Tablet 3 5 Active dulaglutide (TRULICITY) 3 mg/0.5 mL pen injectorIndicat ions:Type 2 diabetes mellitus with hyperglycemia, with long-term current use of insulin,Class 1 obesity due to excess calories with serious comorbidity and body mass index (BMI) of 30.0 to 30.9 in adult,Stage 3b chronic kidney disease Inject 3 mg into the skin once a week Every Wednesday. 2 mL 5 5 Active dapagliflozin propanediol (FARXIGA) 10 mg tabIndications: Type 2 diabetes mellitus with hyperglycemia, with long-term current use of insulin Take 1 Tablet by mouth every morning (Patient will use GoodRx or 340B, whichever one is cheaper). 90 Tablet 2 5 Active dapagliflozin propanediol (FARXIGA) 10 mg tabIndications: Type 2 diabetes mellitus with hyperglycemia, with long-term current use of insulin Take 1 Tablet by mouth every morning (Patient will use GoodRx or 340B, whichever one is cheaper) 90 Tablet 2 5 02/17/20 25 Discontinu ed(Reorder (E-Cancel Not Sent)) Active Problems Problem Noted Date Diagnosed Date Type 2 diabetes mellitus wit h hyperglycemia, with long-term current use of insulin 07/30/2022 Overview (01/21/2025): DM dx: [phone] per patient reports Glucometer: Hydro-Run True Metrix Dexcom G7 sensors ($390) Current Diabetes RX: Trulicity 3 mg once weekly every Wednesday Dapagliflozin 10 mg daily every morning (CKD/microalbuminuria) MYLA-I/ARB: Amlodipine-valsartan 10/160 mg daily Statin: Atorvastatin 40 mg daily at bedtime Pneumococcal vaccine: PCV20 (03/17/22) Diabetes foot exam: 07/11/24 with CELENA Perez Normal pedal pulses, normal monofilament exam, hygiene: good, maceration or scaling in webspaces, and onychomycosis. Dry scaly, non cracked skin. He denies pain, numbness and tingling in feet. Bilateral non painful heel spurs. He was seen by mds coordinator, he is deferring treatment. Maceration between 3 & 4 web spaces. 07/14/22 per Diabetes retinal exam: 07/19/24 at [facility] [...] October 06, 2019 11:51 EDT Encounter info: [id number], [facility], 10/06/2019 - 10/06/2019 * [...] consolidation. Hepatic steatosis. Bilateral adrenal adenomas. A [place] message has been communicated via the [facility] system on 10/06/2019 11:51 AM, Message ID [id number]. WSN: [id number] Ordering Physician: Hanny Thompson Signature Line Dictated [...] September 08, 2019 12:44 EDT Encounter info: [id number], [facility], Disch ES, 09/08/2019 - 09/08/2019 * [...] Morales at the time of dictation WSN: [id number] Ordering Physician: Sandra Morales Signature Line Dictated By: Chas Freeman MD Dictated Date/Time: 09/08/19 12:44 p Reviewed By: Chas Freeman MD Signed By: Chas Freeman MD Signed Date/Time: 09/08/19 12:44 pm Transcribed By: GABE Transcribed Date/Time: 09/08/19 12:40 pm Chest Portable This document has an image Stage 3b chronic kidney disease 06/02/2019 Overview (01/21/2025): 10/31/24 at [facility] CKD3 - Scr back at baseline after holding chlorthalidone 10/31/24 at [facility] CKD3 at baseline, likely IgA nephropathy, Scr increased from baseline, held chlorthalidone, may have to cut ARB if SCR does not settle Hx of microscopic hematuria Proteinuria is undetectable BP at goal, pt needs to lose weight, referred to cardiology 06/20/24 at [facility] CKDIII, likely has IgA nephropathy, Scr stable Hx of microscopic hematuria, proteinuria undetectable, BP at goal, lose weight On MYLA-inhibitor, avoid NSAID, wanted to start on Jardiance, but not covered 02/17/24 at [facility] at [facility] No medication changes, same as below 10/21/23 at [facility] CKD stage 3, likely has IgA [...] Kidney Disease undergoing dialysis Healthcare worker or first calender worker? No COVID-19 Tested? - Yes - Date Tested 09/08/19 Testing Location - [facility] - Testing Results - Positive Is patient ? No Uncontrolled type 2 diabetes mellitus with hyperglycemia 02/14/2013 02/01/2024 Encounters Date Type Department Care Team Description 02/01/2025 Results Follow-Up [address] [phone] Aroldo Latham, PharmD 01/19/2025 4:00 PM EDT Office Visit [address] [address] Aroldo Latham, PharmD 01/11/2025 Interim Notes [address] [phone] Edwar Barcenas MA from Last 3 Months Immunizations Immunization Administration [...] Sign Reading Time Taken Comments Blood Pressure 138/80 01/19/2025 4:00 PM EDT Pulse 78 01/19/2025 4:00 PM EDT Temperature 36.8 C (98.2 F) 04/29/2024 10:13 AM EST Respiratory Rate 16 01/19/2025 4:00 PM EDT Oxygen Saturation 97% 01/19/2025 4:00 PM EDT Inhaled Oxygen Concentration - - Weight 92.5 kg (204 lb) 01/19/2025 4:00 PM EDT Height 177 cm (5' 9.69 ) 01/19/2025 4:00 PM EDT Body Mass Index 29.54 01/19/2025 4:00 PM EDT Plan of Treatment Upcoming Encounters Date Type Department Care Team (Late st Contact Info) Description 03/14/2025 9:00 AM EDT Office Visit [facility] [address] [place] [address] Hanny Thompson PA-C [address] [place] [phone] 03/21/2025 4:20 PM EST Office Visit [facility] [address] [place] [phone] Aroldo Latham, PharmD [address] [place] [address] Health Maintenance Due Date Last Done Comments Anxiety Screening [address] Colonography 11/14/2004 Fecal DNA 11/14/2004 Flexible Sigmoidoscopy 11/14/2004 FIT/gFOBT 07/13/2015 07/13/2014 (Decl ined), 05/16/2013 (Declined) Imm-Zoster, Recombinant (2 of 2) 09/08/2022 07/14/19 23 Falls Prevention 11/14/2024 Annual Wellness (Adult): Indicated (All Coverage) 11/29/2024 11/30/2023, 03/17/2022, 02/13/2020, Additional history exists [id number] ( season) 2025 01/02/2022, 04/28/2021, 09/16/2020, Additional history exists Imm-Influenza (#1) 2025 02/01/2024, 1 , 03/02/2022, Additional history exists Serum Creatinine 04/29/2025 04/29/2024, , 01/04/2023, Additional history exists Diabetes Foot Exam 07/11/2025 07/11/2024, 1 06/11/2023, 07/14/2022, Additional history exists Retinopathy Screening 07/19/2025 07/19/2024 (Managed by Outside Provider), 07/13/2014 (Declined) Urine Albumin Creatinine Rat io Screening 10/05/2025 10/05/2024, 07/14/2022, 01/31/2020, Additional history exists Tobacco Screening 01/19/2026 01/19/2025, 02/01/2024 Lipid Screening 01/24/2026 01/24/2025, 11/14, 12/10/2021, Additional history exists Colonoscopy 06/14/2027 06/14/2020, 05/17, 09/14/2008 Colorectal Cancer Screening 06/14/2027 HIV Screening Completed 01/31/2020 Imm-Pneumococcal 50+ Discontinued 03/17/2022 Alcohol and Drug Screen Discontinued 11/30/19 24, 08/05/2017, 04/25/2015, Additional history exists Depression Annual Screen Discontinued 024, 02/20/2014 (Declined) Hepatitis C Screening Completed 11/30/2023, 020 Hemoglobin A1c Discontinued 01/24/2025, 09/15, 06/03/2024, Additional history exists Imm-DTaP/Tdap/Td Discontinued Goals Goal Patient Goal Type Associated Problems Recent Progress Patient-Stated? Author Blood Pressure < 130/80 Blood Pressure Essential hypertension 138/80(2024 4:00 PM EDT) No Chanell Pizarro, PharmD Procedures Procedure Name Priority Date/Time Associated Diagnosis Comments LIPID PANEL Routine 01/24/2025 9:12 AM EDT Type 2 diabetes mellitus with hyperglycemia, with long-term current use of insulin ([facility]) Hyperlipidemia LDL goal <70 HEMOGLOBIN GLYCOSYLATED A1C Routine 01/24/2025 9:12 AM EDT Type 2 diabetes mellitus with hyperglycemia, with long-term current use of insulin ([facility]) GLUCOSE, BLOOD BY GLUCOSE MONITORING DEVICE (CLIA WAIVED)POCT Routine 01/19/2025 4:04 PM EDT Type 2 diabetes mellitus with hyperglycemia, with long-term current use of insulin ([facility]) OTHER ORDERS SCANNED DOCUMENT 01/16/2025 3:00 AM EDT OTHER ORDERS SCANNED DOCUMENT 01/03/2025 3:00 AM EDT REFERRAL SCANNED DOCUMENT 12/12/2024 3:00 AM EDT MICROALBUMIN/CREATININ E RATIO, URINE, RANDOM Routine 10/05/2024 11:43 AM EDT Type 2 diabetes mellitus with hyperglycemia, without long-term current use of insulin ([facility]) COMPREHENSIVE METABOLIC PANEL Routine 11/30/2023 4:43 PM EDT Routine general medical examination at a health care facility Hyperlipidemia, mixed Hypertension, essential, benign Non morbid obesity Pulmonary nodule- right posterior rib 1.5 cm 09/08/2019 CXR Type 2 diabetes mellitus with hyperglycemia, with long-term current use of insulin ([facility]) Stage 3b chronic kidney disease ([facility]) RIBEIRO (dyspnea on exertion) Malaise and fatigue [...] hyperglycemia, with long-term current use of insulin ([facility]) Stage 3b chronic kidney disease ([facility]) RIBEIRO (dyspnea on exertion) Malaise and fatigue Lower urinary tract symptoms (LUTS) Prostate cancer screening COLONOSCOPY Routine 06/14/2020 4:25 PM EST Prostate cancer screening ANTIBODY HIV-1&HIV-2 SINGLE RESULT Routine 01/31/2020 4:05 PM EDT Type 2 diabetes mellitus without complication, without long-term current use of insulin ([facility]) Stage 3 chronic kidney disease ([facility]) Non morbid obesity Hypertension, essential, benign Hyperlipidemia, mixed from Last 3 Months or Most Recently Relevant to Health Maintenance Results * (ABNORMAL) HEMOGLOBIN GLYCOSYLATED A1C Routine (01/24/2025 9:12 AM EDT) Pathologist [facility] HEMOGLOBIN A1C 6.8(H) <5.7 % 01/25/2025 4:45 AM EDT [employer] Blood Blood / Unknown 01/24/2025 9 :12 AM EDT 01/25/2025 2:29 AM EDT Narrative [facility] - 01/25/2025 4:45 AM EDT FASTING:YES For someone without known diabetes, a hemoglobin A1c value of 6.5% or greater indicates that they may have diabetes and this should be confirmed with a follow-up test. . For someone with known diabetes, a value <7% indicates that their diabetes is well controlled and a value greater than or equal to 7% indicates suboptimal control. A1c targets should be individualized based on duration of diabetes, age, comorbid conditions, and other considerations. . Currently, no consensus exists regarding use of hemoglobin A1c for diagnosis of diabetes for children. . us Aroldo Latham PharmD LAB - BLOOD DRAW Final Re sult [facility] [address] [place] [id number], [employer] [address] [place] [phone] * LIPID PANEL Routine (01/24/2025 9:12 AM EDT) CHOLESTEROL, TOTAL 173 <200 mg/dL 01/25/2025 6:21 AM EDT [employer] HDL CHOLESTEROL 78 > OR = 40 mg/dL 01/25/2025 6:21 AM EDT [employer] TRIGLYCERIDES 59 <150 mg/dL 01/25/2025 6:21 AM EDT [employer] LDL-CHOLESTEROL 81 mg/dL (calc) 01/25/2025 6:21 AM EDT [employer] CHOL/HDLC RATIO 2.2 <5.0 (calc) 01/25/2025 6:21 AM EDT [employer] NON-HDL CHOLESTEROL 95 <130 mg/dL (calc) 01/25/2025 6:21 AM EDT [facility] [employer] Blood Blood / Unknown 01/24/2025 9 :12 AM EDT 01/25/2025 4:42 AM EDT Narrative [facility] - 01/25/2025 6:23 AM EDT FASTING:YES Reference range: <100 . Desirable range <100 mg/dL for primary prevention; <70 mg/dL for patients with CHD or diabetic patients with > or = 2 CHD risk factors. . LDL-C is now calculated using the Lam calculation, which is a validated novel method providing better accuracy than the Friedewald equation in the estimation of LDL-C. Bryant SS et al. CELESTINE. 2013;310(19): 0860-4836 (http://education.Goodie Goodie App/faq/DLS712) For patients with diabetes plus 1 major ASCVD risk factor, treating to a non-HDL-C goal of <100 mg/dL (LDL-C of <70 mg/dL) is considered a therapeutic option. us Aroldo [employer] PharmD LAB - BLOOD DRAW Final Re sult [facility] [address] [address], [employer] [address] [address] * (ABNORMAL) GLUCOSE, BLOOD BY GLUCOSE MONITORING DEVICE (CLIA WAIVED)POCT Routine (01/19/2025 4:04 PM EDT) GLUCOSE 101(A) 70 - 100 mg/dL [facility] POCT Capillary Blood Blood / Unknown 4:04 PM EDT us Aroldo [place] PharmD LAB - BLOOD DRAW Final Re sult [facility]- [facility] POCT * OTHER ORDERS SCANNED DOCUMENT (01/16/2025 3:00 AM EDT) Only the most recent of2 resultswithin the time period is included. 01/16/2025 3:00 AM EDT Result [facility] Jon Avila MD SCAN OTHER ORDERS Final Resu lt * REFERRAL SCANNED DOCUMENT (12/12/2024 3:00 AM EDT) 12/12/2024 3:00 AM EDT Hanny Thompson PA-C SCAN REFERRAL Final Result * (ABNORMAL) MICROALBUMIN/CREATININE RATIO, URINE, RANDOM Urine Routine (10/05/2024 11:43 AM EDT) CREATININE, RANDOM URINE 152 20 - 320 mg/dL [employer] MICROALBUMIN 17.9 mg/dL [facility] Comment: Reference Range Not established MICROALBUMIN/CREA TININE RATIO, RANDOM URINE 118(H) <30 mg/g creat [facility] Comment: The ADA defines abnormalities in albumin [...] 11:43 AM EDT 10/05/2024 11:43 AM EDT Result [facility] Aroldo Latham PharmD LAB URINE AMBULATORY Della l Result [facility] [address] [address], [facility] [address] [address] * HEPATITIS C AB W/RFLX HCV RNA, QT, RT PCR (11/30/2023 4:43 PM EDT) HEPATITIS C ANTIBODY NON-REACT BENJAMIN NON-REACT BENJAMIN [facility] Comment: HCV antibody was non-reactive. There is no laboratory evidence of HCV infection. In most cases, no further action is required. However, if recent HCV exposure is suspected, a test for HCV RNA (test code 11810) is suggested. For additional information please refer to http://education.Tectura/faq/FTQ25h2 (This link is being provided for informational/ educational purposes only.) Blood Blood / Unknown 11/30/2023 4 :43 PM EDT 11/30/2023 4:44 PM EDT us Hanny Thompson PA-C LAB - BLOOD DRAW Edited Resu lt - Final [facility] [address] [address], [employer] [facility] [address] [place] [address] * (ABNORMAL) COMPREHENSIVE METABOLIC PANEL (11/30/2023 4:43 PM EDT) GLUCOSE 92 65 - 99 mg/dL [facility] Comment: Fasting reference interval UREA NITROGEN (BUN) 34(H) 7 - 25 mg/dL [facility] CREATININE (blood) 1.98(H) 0.70 - 1.35 mg/dL [facility] EGFR 37(L) > OR = 60 mL/min/1. 73m2 [facility] BUN/CREATININE RATIO 17 6 - 22 (calc) [facility] SODIUM 138 135 - 146 mmol/L [facility] POTASSIUM 3.9 3.5 - 5.3 mmol/L [facility] CHLORIDE 105 98 - 110 mmol/L [facility] CARBON DIOXIDE 22 20 - 32 mmol/L [facility] CALCIUM 9.8 8.6 - 10.3 mg/dL [facility] PROTEIN, TOTAL 7.1 6.1 - 8.1 g/dL [facility] ALBUMIN 4.5 3.6 - 5.1 g/dL [facility] GLOBULIN 2.6 1.9 - 3.7 g/dL (calc) [facility] ALBUMIN/GLOBULI N RATIO 1.7 1.0 - 2.5 (calc) [facility] BILIRUBIN, TOTAL 0.6 0.2 - 1.2 mg/dL [facility] ALKALINE PHOSPHATASE 61 35 - 144 U/L [facility] AST 18 10 - 35 U/L [facility] [employer] [facility] ALT 19 9 - 46 U/L [facility] Blood Blood / Unknown 11/30/2023 4 :43 PM EDT 11/30/2023 4:44 PM EDT Hanny Thompson PA-C LAB - BLOOD DRAW Edited Resu lt - Final [facility] [place] [facility] [address] [address], [employer] [place] [facility] [address] [place] [address] * COLONOSCOPY (06/14/2020 4:25 PM EST) Impressions Hanny Thompson PA-C - 06/14/2020 4:25 PM EST Result type: Phone Msg Result date: June 14, 2020 14:26 EST Result status: Modified Result title: Biopsy results Performed by: Jani Witt MD on June 14, 2020 14:26 EST Encounter info: [id number], [facility], Triage, 06/14/2020 - 07/14/2020 * Final Report * Document Contains Addenda Addendum by Shavonne Sierra MA on June 14, 2020 14:37:19 EST (Verified) I called and spoke with patient at [phone] patient is aware of results and plan below. Pt reminder created in for repeat colonoscopy in 7y. All set From: Jani Witt MD To: Shavonne Sierra MA; Cc: Hanny [place]; Sent: 06/14/2020 14:26:29 EST Subject: Biopsy results Actions: Please Call Patient with Results One Tubular adenoma, Two small Hyerplastic Polyps Repeat colonoscopy in 7 years based on current guidelines. Please let patient know. Please set reminder. Thank you Dr Witt [facility]. 2019;158(4):1154. doi: 10.1053 PMID: [id number]. Results: Date Result Type Result Name 06/04/2020 8:35 Document - DOC Surgical Pathology Final Diagnosis: 1. Colon, transverse, polyp, polypectomy: - Tubular adenoma. 2. Colon, descending, polyps, polypectomy (x2): - Hyperplastic polyp(s). us Provider [facility] PROCEDURES Final Result * HIV-1 & HIV-2 ANTIBODIES (01/31/2020 4:05 PM EDT) HIV 1 AND 2 ANTIBODY SCREEN NEGATIVE NEGATIVE [facility] [employer] [facility] Comment: This assay is a 4th [...] PM EDT 01/31/2020 4:[address] [facility] - 01/31/2020 7:21 PM EDT [employer], [place] [address] Global Category Manager - Mary Pozo MD [place] [id number] ORD# [id number] Hanny Thompson PA-C LAB - [place] [address], from Last 3 Months or Most Recently Relevant to Health Maintenance Insurance [facility] Care Teams Cnc Mill Programmer Relationship Specialty Start Date End Date Hanny Thompson PA-C [address] [place] [phone] PCP - General Internal Medicine 05/16/13
== END 2025-03-08 14:22 | disposition home or self-care (01) ==
LOC: HO.HKASLDS 14:21
PROVIDERS: PCP Physician Assistant; Visit Provider Internal Medicine Nephrology
DX: I12.9 Hypertensive chronic kidney disease with stage 1 through stage 4 chronic kidney disease, or unspecified chronic kidney disease (principal); N18.31 Chronic kidney disease, stage 3a
CPT/HCPCS: 36415; 80051; 82565; 84520

== ENCOUNTER 2025-03-13 15:18 | Outpatient (AMB) | payer OTHER, SELFPAY ==
--- NOTE | 2025-03-13 15:23 | HO.NEPHOV_ITS ---
Vital Signs 03/13/25 15:35 Height 5 ft 7 in Weight 206 lb 4 oz BMI 32.3 BP 150/80 H Blood Pressure Location Lt brachial Position Sitting Intake Visit Reasons: 3mon f/u w/labs-LVM Doors Prefitter Required: No Accompanied by: Self / Same As Patient Allergies Peanut Butter Allergy (Verified 03/13/25 15:35) Unknown HPI Comments Details: Florian was seen in follow-up of his chronic kidney disease, hypertension on a backdrop of microscopic hematuria and proteinuria. His blood sugar is better. His blood pressure has been at goal. He does not take any nonsteroidal anti- inflammatories. He denies nausea, vomiting, diarrhea, chest pain, shortness of breath, paroxysmal nocturnal dyspnea, orthopnea or pedal edema. He does not have any orthostatic symptoms. He claims to be compliant with his medications. His serum creatinine is back to baseline. He has H/O SOBE & a cardiology referral is pending . His BP is at goal at home. All other systems have been reviewed and were negative. [facility] Medical History (Updated 10/31/24 @ 14:33 by John Loredo MD) Hypertension Chronic kidney disease, stage 3a Proteinuria Hematuria Family History Sister Hypertension Social History Alcohol intake: current Patient Tobacco Use Status: Former Tobacco user Review of Systems Const All systems reviewed & are unremarkable except as noted in HPI and below Physical Exam Const General: comfortable and no acute distress Orientation/consciousness: patient oriented x3 HEENT Head: Yes normocephalic Mouth: Normal oral and palatal mucosa present Eyes EOM: EOMs intact bilaterally Neck Neck: Yes supple Resp Auscultation: clear to auscultation bilaterally Cardio Jugular venous distension: no JVD Rate: regular rate GI Palpation (GI): Soft to palpation Auscultation: normal bowel sounds General: Yes no CVA tenderness Back/Spine/Pelvis Back: no CVA tenderness Skin General skin exam: no rashes or lesions noted Neuro General: patient oriented x3 and moves all extremities Extrem General: Yes no pedal edema Results Reviewed Nephrology Results: Sodium, (135-145) 142 mmol/L 03/08/25 Potassium, (3.3-5.1) 3.6 mmol/L 03/08/25 Chloride, (96-108) 111 mmol/L H 03/08/25 Carbon Dioxide, (22-29) 22 mmol/L 03/08/25 BUN, (9-16) 21 mg/dL H 03/08/25 Creatinine, (0.5-1.4) 1.43 mg/dL H 03/08/25 Urine Protein, (Neg-Trace) Trace mg/dL 10/27/24 Urine Creatinine 176.23 mg/dL 10/27/24 Protein/Creatinin Ratio, (<0.2) 0.09 10/27/24 Assessment & Plan Assessment & Plan (1) Hypertension: Code(s): I10 - Essential (primary) hypertension Category: Medical Qualifiers: Hypertension type: primary hypertension Qualified Code(s): I10 - Essential (primary) hypertension (2) Chronic kidney disease, stage 3a: Code(s): N18.31 - Chronic kidney disease, stage 3a Category: Medical Plan Florian has CKD stage 3 at baseline. He likely has IgA nephropathy. His serum creatinine is back to baseline after holding off his chlorthalidone. I may have to cut back on his ARB if his serum creatinine rises. He has history of microscopic hematuria. His proteinuria now is undetectable. His blood pressure has been at goal. He clearly needs to lose weight. I asked him to keep his bl ood sugar & blood pressure at goal. He is already taking fish oil. He had imaging studies and cystoscopy by Urology. He avoids nonsteroidal anti- inflammatories and maintain good hydration. He is on Farxiga 10 mg daily . I answered all his questions. Follow-up lab work ordered and follow-up appointment given Orders: Orders Protein Creatinine Ratio, Ur 4 Months I10 - Essential (primary) hypertension, N18.31 - Chronic kidney disease, stage 3a UA and rflx microscopic 4 Months I10 - Essential (primary) hypertension, N18.31 - Chronic kidney disease, stage 3a Electrolytes 4 Months I10 - Essential (primary) hypertension, N18.31 - Chronic kidney disease, stage 3a Blood Urea Nitrogen 4 Months I10 - Essential (primary) hypertension, N18.31 - Chronic kidney disease, stage 3a Creatinine 4 Months I10 - Essential (primary) hypertension, N18.31 - Chronic kidney disease, stage 3a Coding Level of Care Code Est Pt Level 4 (79524) Diagnoses Primary hypertension I10 Hypertension type: primary hypertension Chronic kidney disease, stage 3a N18.31
[2025-03-13 15:35] VITALS: BP 150/80; BMI 32.3
--- OUTSIDE RECORDS SUMMARY | 2025-03-13 19:45 | XMS_ITS | Encounter Summary ---
Author Organization [facility] Address [address] [place] [address] Phone Care Team Providers Care Coroner Transport Technician Name Role Phone Kwame Powell MD Primary Care Provider + Encounter Details Date Type Department Care Team (Late st Contact Info) Description 01/26/2017 Procedure Pass [facility] [address] [place] [address] Social History Tobacco Use Types Packs/Day Years [...] on filedocumented in this encounter Care Teams Coroner Transport Technician Relationship Specialty Start Date End Date Kwame Powell MD [address] [place] [address] PCP - General Hematology and Oncology 12/04/16 documented as of this encounter Additional Source Comments The information contained in this document represents components of the legal health record. It is not the complete legal health record.[facility]
--- OUTSIDE RECORDS SUMMARY | 2025-03-13 19:45 | XMS_ITS | Clinical Summary ---
Author Organization [facility] Address [address] [facility] [address] [place] [address] Phone Care Team Providers Care Pump Runner Name Role Phone Inga Mcdaniel GILBERTO Primary Care Provider [phone] Allergies Active Allergy Reactions Criticality Noted Date [...] September 08, 2019 12:44 EDT Encounter info: [id number], [facility], Disch ES, 09/08/2019 - 09/08/2019 * [...] Morales at the time of dictation WSN: [id number] Ordering Physician: Sandra Morales Signature Line Dictated [...] Kidney Disease undergoing dialysis Healthcare worker or assistance coordinator? No COVID-19 Tested? - Yes - Date Tested 09/08/19 Testing Location - [facility] - Testing Results - Positive Is [...] mg/dl PVNMA 01/31/2020 us [facility] [id number] LICITED RESULTS Final Result PVNMA from Last 3 Months or Most Recently Relevant to Health Maintenance Insurance Care Teams Pump Runner Relationship Specialty Start Date End Date Inga Mcdaniel FNP [address] [place], [place] PCP - General 05/27/20
--- OUTSIDE RECORDS SUMMARY | 2025-03-13 19:45 | XMS_ITS | Clinical Summary ---
Author Organization [facility] Address [address] [place] [address] Phone Care Team Providers Care Holistic Specialist Name Role Phone Hanny Thompson Primary Care Provider [phone] Allergies No known active allergies Medications insulin glargine (LANTUS) 100 unit/mL injection Inject 40 Units under the skin at bedtime for 15 days. 10 mL 04/29/2024 Active Medical History Medical History Date Comments Uncontrolled type 2 diabetes mellitus with hyperglycemia ([facility] V24, [facility] V28) DX:Uncontrolled type 2 diabe ciara mellitus with hyperglycemia (HCC) Chronic kidney disease, stag e 3b ([facility] V24, [facility] V28) DX:Chronic kidney disease, stage [...] mmol/L LAB CHEMISTRY METHOD 04/29/2024 6:05 PM [facility] Potassium 4.4 3.5 - 5.5 mmol/L LAB CHEMISTRY METHOD 04/29/2024 6:05 PM [facility] Chloride 105 96 - 110 mmol/L LAB CHEMISTRY METHOD 04/29/2024 6:05 PM [facility] CO2 21 21 - 32 mmol/L LAB CHEMISTRY METHOD 04/29/2024 6:05 PM [facility] Anion Gap 10 3 - 11 LAB CHEMISTRY METHOD 04/29/2024 6:05 PM [facility] Glucose 729(HH) 70 - 100 mg/dL LAB CHEMISTRY METHOD 04/29/2024 6:05 PM [facility] BUN 29(H) 5 - 25 mg/dL LAB CHEMISTRY METHOD 04/29/2024 6:05 PM [facility] Creatinine 2.15(H) 0.70 - 1.30 mg/dL LAB CHEMISTRY METHOD 04/29/2024 6:[address] [facility] eGFR 34(L) >=60 mL/min/1. 73m2 LAB CHEMISTRY METHOD 04/29/2024 6:[address] [facility] Comment:Calculation based on the Chronic Kidney Disease Epidemiology Collaboration (CKD-EPI) equation refit without adjustment for race. BUN/Creatinine Ratio 13.5 LAB CHEMISTRY METHOD 04/29/2024 6:05 PM [facility] Calcium 9.3 8.5 - 10.5 mg/dL LAB CHEMISTRY METHOD 04/29/2024 6:05 PM [facility] Blood Venous blood specimen / Unknown Venipuncture / Unknown 04/29/2024 5:13 PM EST 04/29/2024 5:32 PM EST Jemal Long MD LAB BLOOD ORDERABLES Della l Result [facility] [address] [place] [address], from Last 3 Months or Most Recently Relevant to Health Maintenance Insurance [facility] Care Teams Holistic Specialist Relationship Specialty Start Date End Date Hanny Thompson PA [address] [place] [address] PCP - General 09/11/22
--- OUTSIDE RECORDS SUMMARY | 2025-03-13 19:45 | XMS_ITS | Clinical Summary ---
Author Organization [facility] Address [address] [place] [address] Care Team Providers Care Mechanical Technician Name Role Phone Hanny Thompson PA-C Primary Care Provider [phone] Source Comments PLEASE NOTE, if this patient [...] of insulin 07/30/2022 Overview (01/21/2025): DM dx: ~[phone] per patient reports Glucometer: NERITES True Metrix Dexcom G7 sensors ($390) Current [...] painful heel spurs. He was seen by record filing clerk, he is deferring treatment. Maceration between 3 [...] October 06, 2019 11:51 EDT Encounter info: [id number], [facility] [place], 10/06/2019 - 10/06/2019 * [...] consolidation. Hepatic steatosis. Bilateral adrenal adenomas. A [place] message has been communicated via the [employer] system on 10/06/2019 11:51 AM, Message ID [id number]. WSN: [id number] Ordering Physician: Hanny Thompson Signature Line Dictated [...] September 08, 2019 12:44 EDT Encounter info: [id number], [facility], Disch ES, 09/08/2019 - 09/08/2019 * [...] Morales at the time of dictation WSN: [id number] Ordering Physician: Sandra Morales Signature Line Dictated By: Chas Freeman MD Dictated Date/Time: 09/08/19 12:44 p Reviewed By: Chas Freeman MD Signed By: Chas Freeman MD Signed Date/Time: 09/08/19 12:44 pm Transcribed By: GABE Transcribed Date/Time: 09/08/19 12:40 pm Chest Portable This document has an image Stage 3b chronic kidney disease 06/02/2019 Overview (01/21/2025): 10[place]31/24 [place] [facility] CKD3 - Scr back at baseline after holding chlorthalidone 10/31/24 at [facility] CKD3 at baseline, likely IgA nephropathy, Scr increased from baseline, held chlorthalidone, may have to cut ARB if SCR does not settle Hx of microscopic hematuria Proteinuria is undetectable BP at goal, pt needs to lose weight, referred to cardiology 06/20/24 at [facility] CKDIII, likely has IgA nephropathy, Scr stable Hx of microscopic hematuria, proteinuria undetectable, BP at goal, lose weight On MYLA-inhibitor, avoid NSAID, wanted to start on Jardiance, but not covered 02/17/24 at [facility] at [facility] No medication changes, same as below 10/21/23 [...] Kidney Disease undergoing dialysis Healthcare worker or sanitation engineer? No COVID-19 Tested? - Yes - Date Tested 09/08/19 Testing Location - [facility] - Testing Results - Positive Is patient ? No Uncontrolled type 2 diabetes mellitus with hyperglycemia 02/14/2013 02/01/2024 Encounters Date Type Department Care Team Description 02/01/2025 Results Follow-Up [address] [address] Aroldo Latham, PharmD 01/19/2025 4:00 PM EDT Office Visit [address] [address] Aroldo Latham, PharmD 01/11/2025 Interim Notes [address] [address] Edwar Barcenas [place] from Last 3 Months [...] Description 03/14/2025 9:00 AM EDT Office Visit [facility] [address] [place] [address] Hanny Thompson PA-C [address] [place] [phone] 03/21/2025 4:20 PM EST Office Visit [facility] [address] [place] [phone] Aroldo Latham, PharmD [address] [place] [address] Health Maintenance Due Date Last Done Comments Anxiety Screening [address] Colonography 11/14/2004 Fecal DNA 11/14/2004 Flexible Sigmoidoscopy 11/14/2004 FIT/gFOBT 07/13/2015 07/13/2014 (Decl ined), 05/16/2013 (Declined) Imm-Zoster, Recombinant (2 of 2) 09/08/2022 07/14/19 23 Falls Prevention 11/14/2024 Annual Wellness (Adult): Indicated (All Coverage) 11/29/2024 11/30/2023, 03/17/2022, 02/13/2020, Additional history exists [id number] ( season) 2025 01/02/2022, 04/28/2021, 09/16/2020, Additional [...] Procedure Name Priority Date/Time Associated Diagnosis Comments LAB SCANNED DOCUMENT 03/08/2025 3:00 AM EDT LIPID PANEL Routine 01/24/2025 9:12 AM EDT Type 2 diabetes mellitus with hyperglycemia, with long-term current use of insulin ([facility]) Hyperlipidemia LDL goal <70 HEMOGLOBIN GLYCOSYLATED A1C Routine 01/24/2025 9:12 AM EDT Type 2 diabetes mellitus with hyperglycemia, with long-term current use of insulin ([facility]) GLUCOSE, BLOOD BY GLUCOSE MONITORING DEVICE (CLIA WAIVED)POCT Routine 01/19/2025 4:04 PM EDT Type 2 diabetes mellitus with hyperglycemia, with long-term current use of insulin ([facility]) OTHER ORDERS SCANNED DOCUMENT 01/16/2025 3:00 AM EDT OTHER ORDERS SCANNED DOCUMENT 01/03/2025 3:00 AM EDT REFERRAL SCANNED DOCUMENT 12/12/2024 3:00 AM EDT MICROALBUMIN/CREATININ E RATIO, URINE, RANDOM Routine 10/05/2024 11:43 AM EDT Type 2 diabetes mellitus with hyperglycemia, without long-term current use of insulin ([facility]) COMPREHENSIVE METABOLIC PANEL Routine 11/30/2023 4:43 PM EDT Routine general medical examination at a health care facility Hyperlipidemia, mixed Hypertension, essential, benign Non morbid obesity Pulmonary nodule- right posterior rib 1.5 cm 09/08/2019 CXR Type 2 diabetes mellitus with hyperglycemia, with long-term current use of insulin ([facility]) Stage 3b chronic kidney disease ([facility]) RIBEIRO (dyspnea on exertion) Malaise and fatigue [...] hyperglycemia, with long-term current use of insulin ([facility]) Stage 3b chronic kidney disease ([facility]) RIBEIRO (dyspnea on exertion) Malaise and fatigue Lower urinary tract symptoms (LUTS) Prostate cancer screening COLONOSCOPY Routine 06/14/2020 4:25 PM EST Prostate cancer screening ANTIBODY HIV-1&HIV-2 SINGLE RESULT Routine 01/31/2020 4:05 PM EDT Type 2 diabetes mellitus without complication, without long-term current use of insulin ([facility]) Stage 3 chronic kidney disease ([facility]) Non morbid obesity Hypertension, essential, benign Hyperlipidemia, mixed from Last 3 Months or Most Recently Relevant to Health Maintenance Results * LAB SCANNED DOCUMENT (03/08/2025 3:00 AM EDT) 03/08/2025 3:00 AM EDT Hanny Thompson PA-C SCAN LAB Final Result * (ABNORMAL) HEMOGLOBIN GLYCOSYLATED A1C Routine (01/24/2025 9:12 AM EDT) HEMOGLOBIN A1C 6.8(H) <5.7 % 01/25/2025 4:45 AM EDT [facility] Blood Blood / Unknown 01/24/2025 9 :12 AM EDT 01/25/2025 2:29 AM EDT Narrative [facility] - 01/25/2025 4:45 AM EDT FASTING:YES For [...] for diagnosis of diabetes for children. . Aroldo BenjaminD LAB - BLOOD DRAW Final Re sult [facility] [address] [place] [address], [facility] [address] [place] [phone] * LIPID PANEL Routine (01/24/2025 9:12 AM EDT) CHOLESTEROL, TOTAL 173 <200 mg/dL 01/25/2025 6:21 AM EDT [facility] HDL CHOLESTEROL 78 > OR = 40 mg/dL 01/25/2025 6:21 AM EDT [facility] TRIGLYCERIDES 59 <150 mg/dL 01/25/2025 6:21 AM EDT [facility] LDL-CHOLESTEROL 81 mg/dL (calc) 01/25/2025 6:21 AM EDT [facility] CHOL/HDLC RATIO 2.2 <5.0 (calc) 01/25/2025 6:21 AM EDT [facility] NON-HDL CHOLESTEROL 95 <130 mg/dL (calc) 01/25/2025 6:21 AM EDT [facility] Blood Blood / Unknown 01/24/2025 9 :12 AM EDT 01/25/2025 4:42 AM EDT Narrative [employer] [facility] - 01/25/2025 6:23 AM EDT FASTING:YES Reference [...] LDL-C. Bryant SS et al. CELESTINE. 2013;310(19): 2010-9415 (http://education.Collect.it/faq/OFD230) For patients with diabetes plus 1 major ASCVD risk factor, treating to a non-HDL-C goal of <100 mg/dL (LDL-C of <70 mg/dL) is considered a therapeutic option. us Aroldo Latham PharmD LAB - BLOOD DRAW Final Re sult [employer] [address] [address], [facility] [address] [address] * (ABNORMAL) GLUCOSE, BLOOD BY GLUCOSE MONITORING DEVICE (CLIA WAIVED)POCT Routine (01/19/2025 4:04 PM EDT) GLUCOSE 101(A) 70 - 100 mg/dL [facility]- BACK OFFICE POCT Capillary Blood Blood / Unknown 4:04 PM EDT Aroldo Latham PharmD LAB - BLOOD DRAW Final Re sult [facility]- BACK OFFICE POCT * OTHER ORDERS SCANNED DOCUMENT (01/16/2025 3:00 AM EDT) Only the most recent of2 resultswithin the time period is included. 01/16/2025 3:00 AM EDT Jon Avila MD SCAN OTHER ORDERS Final Resu lt * REFERRAL SCANNED DOCUMENT (12/12/2024 3:00 AM EDT) 12/12/2024 3:00 AM EDT Hanny Thompson PA-C SCAN REFERRAL Final Result * (ABNORMAL) MICROALBUMIN/CREATININE RATIO, URINE, RANDOM Urine Routine (10/05/2024 11:43 AM EDT) CREATININE, RANDOM URINE 152 20 - 320 mg/dL [facility] MICROALBUMIN 17.9 mg/dL [facility] Comment: Reference Range Not established MICROALBUMIN/CREA TININE RATIO, RANDOM URINE 118(H) <30 mg/g creat [facility] Comment: The ADA defines abnormalities in [...] 11:43 AM EDT 10/05/2024 11:43 AM EDT Aroldo Hdezis PharmD LAB URINE AMBULATORY Della l Result [facility] [address] [address], [facility] [address] [address] * HEPATITIS C AB W/RFLX HCV RNA, QT, RT PCR (11/30/2023 4:43 PM EDT) Pathologist [facility] HEPATITIS C ANTIBODY NON-REACT BENJAMIN NON-REACT BENJAMIN [facility] Comment: HCV antibody was non-reactive. There is no laboratory evidence of HCV infection. In most cases, no further action is required. However, if recent HCV exposure is suspected, a test for HCV RNA (test code 25168) is suggested. For additional information please refer to http://education.Flocations/faq/JEX06v3 (This link is being provided for informational/ educational purposes only.) Blood Blood / Unknown 11/30/2023 4 :43 PM EDT 11/30/2023 4:44 PM EDT us Hanny HAILEC LAB - BLOOD DRAW Edited Resu lt - Final [facility] [address] [address], [facility] [address] [place] [address] * (ABNORMAL) COMPREHENSIVE METABOLIC PANEL (11/30/2023 4:43 PM EDT) [facility] GLUCOSE 92 65 - 99 mg/dL [facility] Comment: Fasting reference interval UREA NITROGEN (BUN) 34(H) 7 - 25 mg/dL [facility] CREATININE (blood) 1.98(H) 0.70 - 1.35 mg/dL [facility] EGFR 37(L) > OR = 60 mL/min/1. 73m2 [facility] BUN/CREATININE RATIO 17 6 - 22 (calc) [facility] SODIUM 138 135 - 146 mmol/L [facility] POTASSIUM 3.9 3.5 - 5.3 mmol/L [facility] CHLORIDE 105 98 - 110 mmol/L [facility] CARBON DIOXIDE 22 20 - 32 mmol/L [facility] CALCIUM 9.8 8.6 - 10.3 mg/dL [facility] PROTEIN, TOTAL 7.1 6.1 - 8.1 g/dL [facility] ALBUMIN 4.5 3.6 - 5.1 g/dL [facility] GLOBULIN 2.6 1.9 - 3.7 g/dL (calc) [facility] ALBUMIN/GLOBULI N RATIO 1.7 1.0 - 2.5 (calc) [facility] [place] Andre Phillipe BILIRUBIN, TOTAL 0.6 0.2 - 1.2 mg/dL [facility] ALKALINE PHOSPHATASE 61 35 - 144 U/L [facility] AST 18 10 - 35 U/L [facility] ALT 19 9 - 46 U/L [facility] Blood Blood / Unknown 11/30/2023 4 :43 PM EDT 11/30/2023 4:44 PM EDT Hanny Thompson PA-C LAB - BLOOD DRAW Edited Resu lt - Final [facility] [address] [address], [facility] [address] [place] [address] * COLONOSCOPY (06/14/2020 4:25 PM EST) Impressions Hanny Thompson PA-C - 06/14/2020 4:25 PM EST Result type: Phone Msg Result date: June 14, 2020 14:26 EST Result status: Modified Result title: Biopsy results Performed by: Jani Witt MD on June 14, 2020 14:26 EST Encounter info: [id number], [facility], Triage, 06/14/2020 - 07/14/2020 * Final Report * Document Contains Addenda Addendum by Shavonne Sierra MA on June 14, 2020 14:37:19 EST (Verified) I called and spoke with patient at [phone] patient is aware of results and plan [...] Dr Witt Gastroenterology. 2019;158(4):1154. doi: 10.1053 PMID: [id number]. Results: Date Result Type Result Name 06/04/2020 8:35 Document - DOC Surgical Pathology Final Diagnosis: 1. Colon, transverse, polyp, polypectomy: - Tubular adenoma. 2. Colon, descending, polyps, polypectomy (x2): - Hyperplastic polyp(s). us Provider [facility] PROCEDURES Final Result * HIV-1 & HIV-2 ANTIBODIES (01/31/2020 4:05 PM EDT) HIV 1 AND 2 ANTIBODY SCREEN NEGATIVE NEGATIVE [facility] Comment: This assay is a 4th [...] PM EDT 01/31/2020 4:37 PM EDT Narrative [facility] - 01/31/2020 7:21 PM EDT Hired, [place] [address] Director Community Organization - Mary Pozo MD [place] ID [id number] ORD# [id number] Hanny Thompson PA-C LAB - BLOOD [place] [address], from Last 3 Months or Most Recently Relevant to Health Maintenance Insurance [facility] Care Teams Mechanical Technician Relationship Specialty Start Date End Date Hanny Thompson PA-C [address] [place] [address] PCP - General Internal Medicine 05/16/13
--- OUTSIDE RECORDS SUMMARY | 2025-03-13 19:45 | XMS_ITS | Encounter Summary ---
Author Organization [facility] Address [address] [facility] [address] [place] [address] Phone Care Team Providers Care Glass Glazier Name Role Phone Kwame Powell MD Primary Care Provider + Reason for Referral * MRI/CAT Scan - Closed Specialty Diagnoses / Procedures Referred By Contac t Referred To Contact Radiology Diagnoses Chest pain on exertion Procedures NC Myocardial Perfusion Exercise Multiple Leni Mendez MD Phone: tel: fax: [email or web address] Referral ID Status Reason Start Date Expiration Date Visits Re quested Visits Authorized [id number] Closed 12/16/2018 01/14/2019 1 1 Encounter Details Date Type Department Care Team (Latest Contact Info) Description 12/06/2018 Transcribe [facility] [address] [place] [address] [address] Floor, [address] [place] [address] Leni Mendez MD [address] [place] [address] [email or web address] Chest pain on exertion (Primary Dx) Social [...] in SPECT format, reconstructed tomographically and compared [id number] in short axis, horizontal long axis and [...] pain documented in this encounter Care Teams Glass Glazier Relationship Specialty Start Date End Date Kwame Powell MD [address] [place] [address] PCP - General Hematology and Oncology 12/04/16 documented as of this encounter Additional Source Comments The information contained in this document represents components of the legal health record. It is not the complete legal health record.[facility]
--- OUTSIDE RECORDS SUMMARY | 2025-03-13 19:45 | XMS_ITS | Clinical Summary ---
Author Organization [facility] Address [address] [facility] [address] [place] [address] Phone Care Team Providers Care Cabana Attendant Name Role Phone Kwame Powell MD Primary [...] this topic Medical Devices Implanted Type Area Gastroenterology Nurse Practitioner Device Identifier Shelf Expiration Date Model / Serial / Lot Kit Accessory Penile 30cm Prosthesis Connector Blunt Needle Curved Ej Needle Tubing - [id number] Implanted:Qty: 1 on 01/26/2017 by Bryant Armando MD at [facility] [employer] 12/31/2021 [id number] / / [id number] Pump Penile 65ml Malleable Minocycline Rifampin Inhibizone Parylene 700 Ms - [id number] Implanted:Qty: 1 on 01/26/2017 by Bryant Armando MD at [facility] [employer] 09/10/2018 [id number] / / [id number] Implant Penile [id number] Inflatable Minocycline Rifampin Inhibizone Parylene 700 Ms - [id number] Implanted:Qty: 1 on 01/26/2017 by Bryant Armando MD at [facility] N/A: Penis [employer] 11/28/2018 [id number] / / [id number] Implant Penile [employer] S[employer] Miller Rear Tip 4.0cm - Discontinued Per Contracts - [id number] Implanted:Qty: 1 on 01/26/2017 by Bryant Armando MD at [facility] N/A: Penis [employer] 06/10/2021 [id number] / / [id number] Insurance OUT OF [facility] PPO OUT OF [facility] PPO BLUE CROSS OUT OF STATE PPO BLUE CROSS OUT OF STATE PPO BLUE CROSS OUT OF STATE PPO BLUE [employer]OSS OUT OF STATE PPO BLUE [employer]OSS OUT OF STATE PPO BLUE [employer]OSS OUT OF STATE PPO [facility] OUT OF STATE PPO Advance Directives For more information, please contact: [phone] (9AM - 5PM [facility], Wednesday-Wednesday) Documents on File Type Date Recorded Patient Wilton Weaver Expl anation Healthcare Proxy 01/30/2017 8:35 AM Signed On 01/26/2017 * Full Code (Presumed) (Latest Code Status on File) Date Activated Date Inactivated Comments 01/26/2017 7:45 PM 01/27/2017 7:46 PM Care Teams Cabana Attendant Relationship Specialty Start Date End Date Kwame Powell MD [address] [place] [address] PCP - General Hematology and Oncology 12/04/16 Additional Source Comments The information contained in this document represents components of the legal health record. It is not the complete legal health record.[facility]
== END 2025-03-13 15:57 | disposition home or self-care (01) ==
LOC: HO.HKAS 15:19
PROVIDERS: PCP Physician Assistant; Visit Provider Internal Medicine Nephrology
DX: I10 Essential (primary) hypertension (principal); N18.31 Chronic kidney disease, stage 3a
CPT/HCPCS: 99214

== ENCOUNTER 2025-04-16 10:43 | Outpatient (AMB) | payer OTHER, SELFPAY ==
--- NOTE | 2025-04-16 10:59 | MHC.OFFVIS ---
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 Wool Merchant Required: No Accompanied by: Self / Same As Patient Allergies Peanut Butter Allergy (Verified 04/16/25 11:03) Unknown Medication List - Last Reconciled 04/16/25 by Ariel Bowers MD albuterol sulfate 90 mcg/actuation 2 puffs inhalation Q4-6H PRN amlodipine-valsartan 10-160 mg 1 tab PO DAILY aspirin 81 mg PO DAILY atorvastatin 40 mg PO DAILY blood sugar diagnostic (Contour Next Test Strips) As directed chlorthalidone 25 mg PO DAILY dapagliflozin propanediol (Farxiga) 10 mg PO QAM dulaglutide (Trulicity) mg subcut QWEEK fluticasone propionate 50 mcg/actuation 2 sprays intranasal DAILY magnesium glycinate 400 mg PO DAILY omega-3 fatty acids 500 mg PO DAILY pen needle, diabetic (Sure Comfort Pen Needle) As directed HPI Comments Details: Pleasant 64 year gentleman with background history of diabetes, hypertension and chronic kidney disease who follows with Nephrology and has been referred to us for dyspnea on exertion. He is saying that he has longstanding history of dyspnea with activities. Over the last few months he has lost some weight and he thinks that his breathing has improved but he continues to feel shortness of breath with day-to-day activities. He gets out of breath with climbing stairs. No chest discomfort. Blood pressure well controlled. He is a former smoker but does not carry any diagnosis of COPD. Does not have any history of asthma. He has not been anemic. Denying any orthopnea or peripheral edema. [facility] Medical History (Updated 10/31/24 @ 14:33 by John Loredo MD) Hypertension Chronic kidney disease, stage 3a Proteinuria Hematuria Family History (Updated 04/16/25 @ 11:05 by Karla White CMA) Sister Hypertension Mother No problems noted. Father No problems noted. Social History (Updated 04/16/25 @ 11:05 by Karla White CMA) Alcohol intake: current Patient Tobacco Use Status: Never used Tobacco Review of Systems Const Denies chills, Denies fatigue, Denies fever(s), Denies frequent falls, Denies weakness, Denies weight gain and Denies weight loss ENT Denies dizziness Card Denies chest pain, Denies leg edema, Denies lightheadedness, Denies palpitations, Reports dyspnea, Reports dyspnea on exertion and Denies orthopnea Resp Denies cough, Reports dyspnea and Reports dyspnea on exertion GI Denies bloating and Denies change in bowel habits Musc Denies muscle weakness, Denies numbness and Denies tingling Neuro Denies dizziness, Denies frequent falls, Denies numbness, Denies tingling and Denies weakness Endo Denies fatigue and Denies palpitations Physical Exam Vital Signs: Last Vital Signs Pulse 82 04/16/25 11:02 BP 130/70 04/16/25 11:02 BMI result Body Mass Index 32.2 GENERAL APPEARANCE: in no acute distress, pleasant. NECK: no carotid bruit, no jugular venous distention. SKIN: no suspicious lesions, warm and dry. HEART: no murmurs, regular rate and rhythm. LUNGS: clear to auscultation bilaterally. ABDOMEN: soft, nontender. EXTREMITIES: no edema. PERIPHERAL PULSES: equal. NEUROLOGIC: No gross deficits, AAO X 3 Office Procedures EKG Details: Sinus rhythm 82 beats per minute, normal axis, inferior T-wave inversions, poor R-wave progression, QTC 406 milliseconds. [id number], Complete Assessment & Plan Assessment & Plan (1) Hypertension: Code(s): I10 - Essential (primary) hypertension Category: Medical Qualifiers: Hypertension type: primary hypertension Qualified Code(s): I10 - Essential (primary) hypertension (2) Dyspnea on exertion: Code(s): R06.09 - Other forms of dyspnea Category: Medical Plan Pleasant 64 year gentleman who is here for dyspnea on exertion. He has known history of hypertension and blood pressure is well controlled currently. He has risk factors for coronary artery disease and we will need ischemic evaluation. We will do a stress MIBI. We will also check an echocardiogram to assess for any wall motion abnormalities or diastolic dysfunction. He has inferior T-wave changes as well as poor R-wave progression on his EKG. He will see us after the testing is done. Thank you for allowing me to participate in the care of your patient. Please feel free to contact me if you have any questions. Orders: Orders CA stress test Today R06.09 - Other forms of dyspnea CA echo transthorac w con Today R06.09 - Other forms of dyspnea NM cardiolite stress test Today R06.09 - Other forms of dyspnea Coding Level of Care Code New Pt Level 4 (18537) Diagnoses Primary hypertension I10 Hypertension type: primary hypertension Dyspnea on exertion R06.09 CPT Codes EKG - CPT: 54910-[id number], Complete ([id number])
[2025-04-16 11:02] VITALS: BP 130/70; PULSE 82; BMI 32.2
--- OUTSIDE RECORDS SUMMARY | 2025-04-16 14:10 | XMS_ITS | Encounter Summary ---
Author Organization [facility] Address [address] [place] [address] Phone Care Team Providers Care Base Cloth Inspector Name Role Phone Kwame Powell MD Primary Care Provider + Encounter Details Date Type Department Care Team (Late st Contact Info) Description 01/26/2017 Procedure Pass [facility] Periop [address] [place] [address] Social History Tobacco Use Types Packs/Day Years [...] on filedocumented in this encounter Care Teams Base Cloth Inspector Relationship Specialty Start Date End Date Kwame Powell MD [address] [place] [address] PCP - General Hematology and Oncology 12/04/16 documented as of this encounter Additional Source Comments The information contained in this document represents components of the legal health record. It is not the complete legal health record.[facility]
--- OUTSIDE RECORDS SUMMARY | 2025-04-16 14:10 | XMS_ITS | Encounter Summary ---
Author Organization [facility] Address [address] [place] [address] Phone Care Team Providers Care Clinical Therapist Name Role Phone Kwame Powell MD Primary Care Provider + Reason for Referral * MRI/CAT Scan - Closed Specialty Diagnoses / Procedures Referred By Contac t Referred To Contact Radiology Diagnoses Chest pain on exertion Procedures NC Myocardial Perfusion Exercise Multiple Leni Mendez MD Phone: tel: fax: [email or web address] Referral ID Status Reason Start Date Expiration Date Visits Re quested Visits Authorized [id number] Closed 12/16/2018 01/14/2019 1 1 Encounter Details Date Type Department Care Team (Latest Contact Info) Description 12/06/2018 Transcribe [facility] [address] [place] [address] 3rd Floor, [address] [place] [address] Leni Mendez MD [address] [place] [address] [email or web address] Chest pain on exertion (Primary Dx) Social [...] in SPECT format, reconstructed tomographically and compared [id number] in short axis, horizontal long axis and [...] pain documented in this encounter Care Teams Clinical Therapist Relationship Specialty Start Date End Date Kwame Powell MD [address] [place] [address] PCP - General Hematology and Oncology 12/04/16 documented as of this encounter Additional Source Comments The information contained in this document represents components of the legal health record. It is not the complete legal health record.[facility]
--- OUTSIDE RECORDS SUMMARY | 2025-04-16 14:11 | XMS_ITS | Clinical Summary ---
Author Organization [facility] Address [address] [place] [address] Phone Care Team Providers Care Custom Shoemaker Name Role Phone Kwame Powell MD Primary [...] this topic Medical Devices Implanted Type Area Dry Ice Machine Operator Device Identifier Shelf Expiration Date Model / Serial / Lot Kit Accessory Penile 30cm Prosthesis Connector Blunt Needle Curved Ej Needle Tubing - [id number] Implanted:Qty: 1 on 01/26/2017 by Bryant Armando MD at [facility] [employer] 12/31/2021 [id number] / / [id number] Pump Penile 65ml Malleable Minocycline Rifampin Inhibizone Parylene 700 Ms - [id number] Implanted:Qty: 1 on 01/26/2017 by Bryant Armando MD at [facility] [employer] 09/10/2018 [id number] / / [id number] Implant Penile [id number] Inflatable Minocycline Rifampin Inhibizone Parylene 700 Ms - [id number] Implanted:Qty: 1 on 01/26/2017 by Bryant Armando MD at [facility] N/A: Penis [employer] 11/28/2018 [id number] / / [id number] Implant Penile Steward/Stewardess Tourist Class Rear Tip 4.0cm - Discontinued Per Contracts - [id number] Implanted:Qty: 1 on 01/26/2017 by Bryant Armando MD at [facility] N/A: Penis [employer] 06/10/2021 [id number] / / [id number] Insurance OUT OF [facility] PPO OUT OF [facility] PPO BLUE CROSS OUT OF STATE PPO BLUE CROSS OUT OF STATE PPO BLUE [employer]OSS OUT OF STATE PPO BLUE [place]OSS OUT OF STATE PPO BLUE CROSS OUT OF STATE PPO BLUE CROSS OUT OF STATE PPO [facility] OUT OF STATE PPO Advance Directives For more information, please contact: [phone] (9AM - 5PM [facility], Wednesday-Wednesday) Documents on File Type Date Recorded 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 It is not the complete legal health record.[facility]
--- OUTSIDE RECORDS SUMMARY | 2025-04-16 14:11 | XMS_ITS | Clinical Summary ---
Author Organization [facility] Address [address] [place] [address] Phone Care Team Providers Care Staple Fiber Washer Name Role Phone Hanny Thompson Primary Care Provider [phone] Allergies No known active allergies Medications insulin glargine (LANTUS) 100 unit/mL injection Inject 40 Units under the skin at bedtime for 15 days. 10 mL 04/29/2024 Active Encounters Date Type Department Care Team Description 04/03/2025 2:00 PM EST - 04/03/2025 11:59 PM EST Hospital Encounter [facility] Ultrasound [address] [place] [address] Bilateral renal cysts Discharge Disposition: Home or Self Care from Last 3 Months Medical History Medical History Date Comments Uncontrolled type 2 diabetes mellitus with hyperglycemia ([facility] V24, [facility] V28) DX:Uncontrolled type 2 diabe ciara mellitus with hyperglycemia (HCC) Chronic kidney disease, stag e 3b (CMS/HCC V24, [facility] V28) DX:Chronic kidney disease, stage 3b (HCC) Social History Tobacco Use Types Packs/Day Years Used Date Smoking Tobacco: Former Cigarettes Smokeless Tobacco: Never Alcohol Use Standard Drinks/Week Comments Yes 0 (1 standard drink = 0.6 oz pur e alcohol) Sex and Gender Information Value Date Recorded Sex Assigned at Male 03/27/2025 10:00 AM EST Legal Sex Male 9:27 AM EST Gender [...] - Risk 50-74 years 1-dose series) 11/14/2009 Social Influencers of Health Screening 04/19/2022 Depression Screening 05/17/2024 COVID-19 Vaccine ( season) 2025 01/02/2022, 04/28/2021, 09/16/2020, Additional history exists Diabetes: Annual GFR (Glomerular Filtration Rate) 04/29/2025 04/29/2024, 11/30/2023 Falls Risk Assessment 04/29/2025 04/29/2024 Hypertension/CHF/CAD Annual BMP Blood Test 04/29/2025 04/29/2024, 11/30/2023 Diabetes: Blood Sugar Control Test (HGBA1C) 07/24/2025 01/24/2025, 10/05/2024, 11/30/2023, Additional history exists Diabetes: Annual Urine Albumin-Creatinine Ratio (uACR) 10/05/2025 10/05/2024, 07/14/2022, 01/31/2020, Additional history exists Cholesterol Screening (Lipid Panel) 01/24/2030 01/24/2025, 01/24/2025, 11/30/2023, Additional history exists Pneumococcal Vaccine: 50+ Years Completed 03/17/2022 Hepatitis C Screening Completed 11/30/2023, 020 Abdominal Aortic Aneurysm (AAA) Screen Completed 12/27/2023 Influenza Vaccine Completed 02/03/2025, , 02/16/2023, Additional history exists Zoster Vaccines Completed 02/19/2025, 07/14/2022 HIB Vaccines Aged Out No longer eligi [...] Procedure Name Priority Date/Time Associated Diagnosis Comments US RETROPERITONEAL COMPLETE Routine 04/03/2025 2:25 PM EST Bilateral renal cysts BASIC METABOLIC PANEL STAT 04/29/2024 5:13 PM EST from Last 3 Months or Most Recently Relevant to Health Maintenance Results * US Retroperitoneal Complete (04/03/2025 2:25 PM EST) Anatomical Region Laterality Modality Body Ultrasound 04/04/2025 10:3 3 AM EST Impressions 04/04/2025 10:34 AM EST Multiple bilateral renal cortical cysts. -------- FINAL REPORT -------- Dictated By: Ignacio Garcia Dictated Date: 04/04/2025 10:33 ET Assigned Physician: Ignacio Garcia Reviewed and Electronically Signed By: Ignacio Garcia Signed Date: 04/04/2025 10:34 ET Workstation ID: [id number] Transcribed By: Self Edit Transcribed Date: 04/04/2025 10:33 ET Narrative 04/04/2025 10:34 AM EST PROCEDURE: Renal ultrasound. HISTORY: BILATERAL RENAL CYSTS. TECHNIQUE: Grayscale, color Doppler, and spectral Doppler ultrasound of the kidneys. COMPARISON: CT 08/11/2016. FINDINGS: The right kidney measures 12.8 cm in length. The left kidney measures 12.2 cm in length. Multiple bilateral renal cortical cysts. The largest on the right is located in the upper pole and measures 2.8 cm. The largest on the left is located in the interpolar region and measures up to 3.5 cm. No hydronephrosis. Limited views of the urinary bladder are unremarkable. Both ureteral jets are visualized. Procedure Note Ignacio Garcia MD - 04/04/2025 PROCEDURE: Renal ultrasound. HISTORY: BILATERAL RENAL CYSTS. TECHNIQUE: Grayscale, color Doppler, and spectral Doppler ultrasound ofthe kidneys. COMPARISON: CT 08/11/2016. FINDINGS: The right kidney measures 12.8 cm in length. The left kidney measures 12.2 cm in length. Multiple bilateral renal cortical cysts. The largest on the right is located in the upper pole and measures 2.8cm. The largest on the left is located in the interpolar region and measuresup to 3.5 cm. No hydronephrosis. Limited views of the urinary bladder are unremarkable. Both ureteral jetsare visualized. IMPRESSION: Multiple bilateral renal cortical cysts. -------- FINAL REPORT -------- Dictated By: Ignacio Garcia Dictated Date: 04/04/2025 10:33 ET Assigned Physician: Ignacio Garcia Reviewed and Electronically Signed By: Ignacio Garcia Signed Date: 04/04/2025 10:34 ET Workstation ID: [id number] Transcribed By: Self Edit Transcribed Date: 04/04/2025 10:33 ET us Hanny CLAUDIO [facility] PROCEDURES Final Result * (ABNORMAL) Basic metabolic panel (04/29/2024 5:13 PM EST) Sodium 136 133 - 145 mmol/L LAB CHEMISTRY METHOD 04/29/2024 6:05 PM EST [facility] Potassium 4.4 3.5 - 5.5 mmol/L LAB CHEMISTRY METHOD 04/29/2024 6:05 PM [facility] Chloride 105 96 - 110 mmol/L LAB CHEMISTRY METHOD 04/29/2024 6:05 PM [facility] CO2 21 21 - 32 mmol/L LAB CHEMISTRY METHOD 04/29/2024 6:05 PM [facility] Anion Gap 10 3 - 11 LAB CHEMISTRY METHOD 04/29/2024 6:05 PM [facility] Glucose 729(HH) 70 - 100 mg/dL LAB CHEMISTRY METHOD 04/29/2024 6:05 PM [facility] BUN 29(H) 5 - 25 mg/dL LAB CHEMISTRY METHOD 04/29/2024 6:05 PM [facility] Creatinine 2.15(H) 0.70 - 1.30 mg/dL LAB CHEMISTRY METHOD 04/29/2024 6:05 PM [facility] eGFR 34(L) >=60 mL/min/1. 73m2 LAB CHEMISTRY METHOD 04/29/2024 6:05 PM [facility] Comment:Calculation based on the Chronic Kidney Disease Epidemiology Collaboration (CKD-EPI) equation refit without adjustment for race. BUN/Creatinine Ratio 13.5 LAB CHEMISTRY METHOD 04/29/2024 6:05 PM [facility] Calcium 9.3 8.5 - 10.5 mg/dL LAB CHEMISTRY METHOD 04/29/2024 6:05 PM [facility] Blood Venous blood specimen / Unknown Venipuncture / Unknown 04/29/2024 5:13 PM EST 04/29/2024 5:32 PM EST us Jemal Long MD LAB BLOOD ORDERABLES Della l Result [facility] [address] [place] [address], [place] [phone] from Last 3 Months or Most Recently Relevant to Health Maintenance Insurance [place] [id number] Care Teams Staple Fiber Washer Relationship Specialty Start Date End Date Hanny Thompson PA [address] [place] [address] PCP - General 09/11/22
== END 2025-04-16 11:31 | disposition home or self-care (01) ==
LOC: HO.HCS 10:55
PROVIDERS: PCP Physician Assistant; Visit Provider Internal Medicine Cardiovascular Disease
DX: I10 Essential (primary) hypertension (principal); R06.09 Other forms of dyspnea
CPT/HCPCS: 93010; 99204

== ENCOUNTER → 2025-04-16 10:43 | Outpatient (BNVA) | payer OTHER, SELFPAY | PROVIDERS: PCP Physician Assistant; Visit Provider Internal Medicine Cardiovascular Disease | DX: R06.09 Other forms of dyspnea (principal); I12.9 Hypertensive chronic kidney disease with stage 1 through stage 4 chronic kidney disease, or unspecified chronic kidney disease; N18.31 Chronic kidney disease, stage 3a | CPT/HCPCS: 93005 ==